=== PATIENT | female | born 1970 | race Caucasian/White ===

== ENCOUNTER 2023-06-05 10:47 | Emergency (ER) | payer OTHER, SELFPAY ==
[2023-06-05 10:55] VITALS: BP 150/99; PULSE 83; RESP 20; TEMP 36.8; O2SAT 99; BMI 24.6
--- NOTE | 2023-06-05 10:55 | ED.GENADUL1 ---
HPI - General Adult General Chief complaint: Nausea/Vomiting/Diarrhea Stated complaint: VOMITING Time Seen by Provider: 06/05/23 10:55 History of Present Illness HPI narrative: Patient presents to emergency department complaining of nausea, vomiting and diarrhea for 3 days. He states she started to feel weak and dehydrated and wanted to get checked out. She complains of abdominal cramping. She denies any fever. She denies any sick contacts. She states she has a sore throat from vomiting. She denies any hematemesis, melena, hematochezia.She was recently started on clindamycin for dental caries. Related Data Previous Rx's Medication Instructions Recorded famotidine 40 mg tablet (Pepcid) 40 mg PO BID #20 tabs 06/05/23 ondansetron HCl 4 mg tablet 4 mg PO Q6H PRN nausea and 06/05/23 vomiting #14 tabs promethazine 25 mg tablet 25 mg PO Q6H PRN nausea and 06/05/23 vomiting #10 tabs Allergies Allergy/AdvReac Type Severity Reaction Status Date / Time No Known Drug Allergies Allergy Verified 06/05/23 10:59 Review of Systems ROS Status of ROS 10 or more systems reviewed and unremarkable except as noted in history and below Exam Narrative Exam Narrative: Nurses notes and vital signs reviewed and patient is not hypoxic. General: Nontoxic, Well-appearing and in no apparent distress. Skin: Warm, dry, no pallor noted. No Rash Head: Normocephalic, atraumatic. Neck: Supple, non-tender. Eye: Pupils are equal, round and EOMI. No scleral icterus. Ears, Nose, Mouth, and Throat: TM clear, no posterior oropharynx erythema or nasal mucosal hypertrophy, uvula is mid-line Oral mucosa is dry Cardiovascular: Regular Rate and Rhythm without murmur, gallop or rub. Respiratory: No accessory muscle use or respiratory distress. Lungs are clear to auscultation, no wheezing, rales or rhonchi Chest Wall: no tenderness Back: No midline thoracic or lumbar vertebral tenderness. No CVA tenderness Musculoskeletal: normal ROM, no calf or popliteal tenderness, no lower extremity edema/swelling GI: Abdomen is soft, non-distended. Normal bowel sounds. No tenderness to palpation. No rebound, guarding, or rigidity noted. Neurological: A&O x4. No cranial nerve dysfunction observed. No truncal ataxia. Moves all extremities. Sensation intact. Psychiatric: Cooperative and interactive. Normal mood and affect. Constitutional Vital Signs, click to edit/add: Last Vital Signs Temp 98 F 06/05/23 16:40 Pulse 80 06/05/23 16:40 Resp 16 06/05/23 16:40 BP 170/95 H 06/05/23 16:40 Pulse Ox 100 06/05/23 16:40 O2 Del Method Room Air 06/05/23 16:40 Course Vital Signs Vital signs: Vital Signs Temperature 98.3 F 06/05/23 10:55 Pulse Rate 83 06/05/23 10:55 Respiratory Rate 20 06/05/23 10:55 Blood Pressure 150/99 H 06/05/23 10:55 Pulse Oximetry 99 06/05/23 10:55 Oxygen Delivery Method Room Air 06/05/23 10:55 Temperature 98 F 06/05/23 16:40 Pulse Rate 80 06/05/23 16:40 Respiratory Rate 16 06/05/23 16:40 Blood Pressure 170/95 H 06/05/23 16:40 Pulse Oximetry 100 06/05/23 16:40 Oxygen Delivery Method Room Air 06/05/23 16:40 Medical Decision Making MDM Narrative Medical decision making narrative: pt was given IV fluids, Zofran. Lab studies were done. Patient's CT scan showed enteritis. Patient's gastrointestinal panel demonstrates neurovirus. Patient felt better is tolerating by mouth. She was given a prescription for antibiotics. She will continue hydration at home. She is advised to return to the emergency department if abdominal pain worsens, she develops hematemesis, or hematochezia she has any other times concerns. At this time the patient is without objective evidence of an acute process requiring hospitalization or inpatient management. The patient has remained hemodynamically stable. No additional indication for emergent studies at this time. I answered all questions. Discussed discharge instructions including standard anticipatory guidance and what should prompt a return to the emergency department, including if they get worse are not getting better or develops any new or concerning symptoms. I've given them specific time frame in which to follow-up, and who to follow-up with. The patient demonstrates understanding. Patient is nontoxic and stable for discharge with outpatient follow-up. This note was created with the assistance of a speech recognition program. Although the intention is to generate documents that actually reflects the content of the visit, no guarantees can be provided that every mistake has been identified and corrected by editing. Lab Data Lab results reviewed: Yes I reviewed the patient's lab results Labs: Lab Results 06/05/23 06/05/23 Range/Units 11:10 13:10 WBC 4.8 (4.0-11.0) 10^3/uL RBC 4.53 (4.20-5.40) 10^6/uL Hgb 14.8 (12.0-16.0) g/dL Hct 41.1 (36.0-48.0) % MCV 90.7 (81.0-99.0) fL MCH 32.7 (26.7-34.0) pg MCHC 36.0 H (29.9-35.2) g/dL RDW 12.5 (11.0-15.0) % Plt Count 331 (150-450) 10^3/uL MPV 9.5 (9.5-13.5) fL Neut % (Auto) 52.7 (43.0-75.0) % Lymph % (Auto) 34.1 (20.5-60.0) % [place] % (Auto) 9.1 (1.7-12.0) % Eos % (Auto) 3.1 (0.9-7.0) % Baso % (Auto) 0.8 (0.2-2.0) % Neut # (Auto) 2.6 (1.4-6.5) 10^3/uL Lymph # (Auto) 1.7 (1.2-3.8) 10^3/uL [place] # (Auto) 0.4 (0.3-0.8) 10^3/uL Eos # (Auto) 0.2 (0.0-0.7) 10^3/uL Baso # (Auto) 0.0 (0.0-0.1) 10^3/uL Abs Immat Gran (auto) 0.01 (0.00-0.03) 10^3/uL Imm/Tot Granulo (auto) 0.2 (0.0-0.5) % Sodium 136 (136-145) mmol/L Potassium 3.2 L (3.5-5.1) mmol/L Chloride 98 (98-107) mmol/L Carbon Dioxide 24.1 (21.0-32.0) mmol/L Anion Gap 17.1 BUN 9.0 (7.0-18.0) mg/dL Creatinine 0.66 (0.55-1.02) mg/dL Est GFR ( Amer) >60 (>=60) Est GFR (Non-Af Amer) >60 (>=60) BUN/Creatinine Ratio 13.6 Glucose 131 H (74-106) mg/dL Calcium 8.3 L (8.5-10.1) mg/dL Total Bilirubin 1.1 H (0.2-1.0) mg/dL AST 162 H (15-37) U/L ALT 95 H (14-59) U/L Alkaline Phosphatase 106 (46-116) U/L Total Protein 7.0 (6.4-8.2) g/dL Albumin 3.5 (3.4-5.0) g/dL Globulin 3.5 g/dL Albumin/Globulin Ratio 1.0 Lipase 173.0 (73.0-393.0) U/L Urine Color Lt. yellow (YELLOW) Urine Clarity Clear (CLEAR) Urine pH 7.0 (5.0-9.0) Ur Specific [place] 1.010 (1.005-1.025) Urine Protein Negative (NEG/TRACE) mg/dL Urine Glucose (UA) Negative (NEGATIVE) mg/dL Urine Ketones Negative (NEGATIVE) mg/dL Urine Occult Blood Negative (NEGATIVE) Urine Nitrite Negative (NEGATIVE) Urine Bilirubin Negative (NEGATIVE) Urine Urobilinogen 0.2 (0.2-1.0) EU/dL Ur Leukocyte Esterase Negative (NEGATIVE) Stl C. cayetanensis PCR Not detected (NOT DETECTE) Stool Rotavirus (PCR) Not detected (NOT DETECTE) Stool Adenovirus (PCR) Not detected (NOT DETECTE) Stool Astrovirus (PCR) Not detected (NOT DETECTE) Stool Campylobacter PCR Not detected (NOT DETECTE) Stool Cryptosporidium PCR Not detected (NOT DETECTE) St Sh/Enteroin Ecoli PCR Not detected (NOT DETECTE) Stl Enterotoxigenic E PCR Not detected (NOT DETECTE) Stool EPEC (PCR) Not detected (NOT DETECTE) Stl E. histolytica PCR Not detected (NOT DETECTE) Stool Giardia Lamblia PCR Not detected (NOT DETECTE) Stl P. shigelloides PCR Not detected (NOT DETECTE) Stool Salmonella PCR Not detected (NOT DETECTE) Stool Sapovirus (PCR) Not detected (NOT DETECTE) Stl Shiga-like Tx 1 PCR Not detected (NOT DETECTE) St Y.enterocolitica PCR Not detected (NOT DETECTE) Stl Vibrio cholerae PCR Not detected (NOT DETECTE) Stl Enteroaggr Ecoli PCR Not detected (NOT DETECTE) Stl Norovirus GI/GII PCR Detected A (NOT DETECTE) C. difficile Toxin A&B Not detected (NOT DETECTE) Vibrio Culture Not detected (NOT DETECTE) Discharge Plan Discharge Chief Complaint: Nausea/Vomiting/Diarrhea Clinical Impression: Inflammation of intestine due to Norovirus, Gastroenteritis, Dehydration Patient Disposition: Home, Self-Care Time of Disposition Decision: 16:32 Condition: Good Mode of Transportation: Private Vehicle Prescriptions / Home Meds: New ondansetron HCl 4 mg tablet 4 mg PO Q6H PRN (Reason: nausea and vomiting) Qty: 14 0RF promethazine 25 mg tablet 25 mg PO Q6H PRN (Reason: nausea and vomiting) Qty: 10 0RF famotidine [Pepcid] 40 mg tablet 40 mg PO BID Qty: 20 0RF Instructions: Dehydration (ED), Acute Nausea and Vomiting (ED) Stand Alone Forms: Portal Instructions Referrals: Isrrael Jo MD [Primary Care Provider] - 1 week Discharge Date/Time: 06/05/23 16:57
[2023-06-05 10:58] VITALS: BP 150/99
[2023-06-05 11:26] LABS: Basophils Percent Auto 0.8 % (0.2-2.0); Eosinophils Absolute Auto 0.2 10^3/uL (0.0-0.7); Eosinophils Percent Auto 3.1 % (0.9-7.0); Hematocrit 41.1 % (36.0-48.0); Hemoglobin 14.8 g/dL (12.0-16.0); Immature Granulocytes Abs Auto 0.01 10^3/uL (0.00-0.03); Immature Granulocytes Pct Auto 0.2 % (0.0-0.5); Lymphocytes Absolute Auto 1.7 10^3/uL (1.2-3.8); Lymphocytes Percent Auto 34.1 % (20.5-60.0); Mean Corpuscular Hemoglobin 32.7 pg (26.7-34.0); Mean Corpuscular Volume 90.7 fL (81.0-99.0); Mean Platelet Volume 9.5 fL (9.5-13.5); Monocytes Absolute Auto 0.4 10^3/uL (0.3-0.8); Monocytes Percent Auto 9.1 % (1.7-12.0); Neutrophils Absolute Auto 2.6 10^3/uL (1.4-6.5); Neutrophils Percent Auto 52.7 % (43.0-75.0); Platelet Count 331 10^3/uL (150-450); Red Blood Count 4.53 10^6/uL (4.20-5.40); Red Cell Distribution Width 12.5 % (11.0-15.0); White Blood Count 4.8 10^3/uL (4.0-11.0)
[2023-06-05] MEDS: ONDANSETRON PF 4 MG/2 ML VIAL IV (11:27)
[2023-06-05] MEDS: 0.9 % SODIUM CHLORIDE 1,000 ML 999 ML IV (11:27)
[2023-06-05 11:41] LABS: Alanine Aminotransferase 95 U/L (14-59); Albumin Level 3.5 g/dL (3.4-5.0); Alkaline Phosphatase 106 U/L (46-116); Anion Gap 17.1; Aspartate Amino Transferase 162 U/L (15-37); BUN Creatinine Ratio 13.6; Bilirubin Total 1.1 mg/dL (0.2-1.0); Calcium 8.3 mg/dL (8.5-10.1); Carbon Dioxide 24.1 mmol/L (21.0-32.0); Chloride 98 mmol/L (98-107); Estimated GFR (African America >60 (>=60); Estimated GFR (Non-African Ame >60 (>=60); Globulin 3.5 g/dL; Glucose 131 mg/dL (74-106); Potassium 3.2 mmol/L (3.5-5.1); Sodium 136 mmol/L (136-145)
--- NOTE | 2023-06-05 12:00 | CT_ITS ---
The [address] [address] Patient Name: MEGHA MCDANIEL MRN: [id number] date: 1970 Sex: F Assigned Patient Location: ER Current Patient Location: ER Accession/Order Number: [id number] Exam Date: 06/05/2023 12:28 Report Date: 06/05/2023 13:47 At the request of: MJ ZAPATA Procedure: CT abdomen pelvis w con EXAM: CT abdomen pelvis w con HISTORY: n/v/d, elevated lfts COMPARISON: 03/05/2021. TECHNIQUE: Enhanced helical acquisition obtained through the abdomen and the pelvis. FINDINGS: The visualized lung bases and pleural spaces are clear. Mild hepatic steatosis. Hepatomegaly with the liver measuring approximately 21 cm craniocaudal length. Mild extrahepatic biliary ductal dilatation with the common hepatic duct measuring 1.2 cm in diameter. The spleen, pancreas, adrenal glands and the kidneys are unremarkable. Retroaortic left renal vein, anatomic variant. Moderate diffuse atherosclerotic disease. No enlarged lymph nodes within the abdomen or the pelvis. Normal appendix. No ascites or focal intraperitoneal fluid collections. Diffuse prominence of submucosal fat within the colonic wall diffusely which is a nonspecific finding and may occur in the setting of underlying chronic inflammatory bowel disease or also occur in the setting of obesity. The colon is diffusely decompressed. Possibility of mild diffuse colonic wall thickening secondary to a mild pancolitis is not completely excluded. Diverticulosis without radiographic evidence of diverticulitis. No ascites or focal intraperitoneal fluid collections. CT/CT abdomen pelvis w con IMPRESSION: 1. Prominent submucosal fat throughout the entirety of the colonic wall which may occur in the setting of chronic inflammatory bowel disease or obesity. The colon is diffusely decompressed and there may be diffuse colonic wall thickening which may indicate the presence of an underlying mild pancolitis. Recommend correlation for C. difficile. 2. Normal appendix. Diverticulosis without radiographic evidence of diverticulitis. 3. Hepatic steatosis. Hepatomegaly. Mild extrahepatic biliary ductal dilatation with the common hepatic duct measuring 1.2 cm in diameter. Electronically authenticated by: CLEMENT TAPIA Date: 06/05/2023 13:47
[2023-06-05 13:14] LABS: Adenovirus F 40/41 NOT DETECTED (NOT DETECTE); Astrovirus NOT DETECTED (NOT DETECTE); Campylobacter NOT DETECTED (NOT DETECTE); Cryptosporidium NOT DETECTED (NOT DETECTE); Cyclospora cayetanensis NOT DETECTED (NOT DETECTE); Entamoeba histolytica NOT DETECTED (NOT DETECTE); Enteroaggregative E.coli NOT DETECTED (NOT DETECTE); Enteropathogenic E.coli NOT DETECTED (NOT DETECTE); Enterotoxigenic E. coli NOT DETECTED (NOT DETECTE); Giardia lamblia NOT DETECTED (NOT DETECTE); Plesiomonas shigelloides NOT DETECTED (NOT DETECTE); Rotavirus A NOT DETECTED (NOT DETECTE); Salmonella NOT DETECTED (NOT DETECTE); Sapovirus NOT DETECTED (NOT DETECTE); Shiga-like toxin-producing E.C NOT DETECTED (NOT DETECTE); Shigella/Enteroinvasive E.coli NOT DETECTED (NOT DETECTE); Vibrio NOT DETECTED (NOT DETECTE); Vibrio cholerae NOT DETECTED (NOT DETECTE); Yersinia enterocolitica NOT DETECTED (NOT DETECTE)
[2023-06-05 13:16] LABS: Bilirubin Urine NEGATIVE (NEGATIVE); Blood Urine NEGATIVE (NEGATIVE); Clarity Urine CLEAR (CLEAR); Color Urine LT. YELLOW (YELLOW); Glucose Urine UA NEGATIVE (NEGATIVE); Ketones Urine NEGATIVE (NEGATIVE); Leukocyte Esterase Urine NEGATIVE (NEGATIVE); Nitrite Urine NEGATIVE (NEGATIVE); Protein Urine NEGATIVE (NEG/TRACE); Urobilinogen Urine 0.2 EU/dL (0.2-1.0)
[2023-06-05 13:17] LABS: Urine Microscopic Indicated NO
[2023-06-05] MEDS: PANTOPRAZOLE SODIUM 40 MG VIAL IV (13:33)
[2023-06-05 13:38] VITALS: O2SAT 97
[2023-06-05] MEDS: PROMETHAZINE HCL 25 MG/ML VIAL 12.5 MG IV (13:38)
[2023-06-05 13:40] VITALS: O2SAT 98
[2023-06-05] MEDS: lidocaine HCL 15 ML, MAG HYDROX/ALUMINUM HYD/SIMETH 30 ML, HYOSCYAMINE SULFATE 0.25 MG PO (13:40)
[2023-06-05 13:44] VITALS: BP 160/95; TEMP 36.6
[2023-06-05 14:55] LABS: Norovirus GI/GII DETECTED (NOT DETECTE)
[2023-06-05 16:40] VITALS: BP 170/95; PULSE 80; RESP 16; TEMP 36.6; O2SAT 100
== END 2023-06-05 16:57 | disposition home or self-care (01) ==
PROVIDERS: Emergency Provider Emergency Medicine; PCP Family Medicine
DX: A08.11 Acute gastroenteropathy due to Norwalk agent (principal); E86.0 Dehydration; K52.9 Noninfective gastroenteritis and colitis, unspecified
CPT/HCPCS: 36415; 74177; 80053; 81003; 83690; 85025; 87507; 96361; 96374; 96375; 99285; Q9967

== ENCOUNTER 2023-11-09 09:15 | Outpatient (OUT) | payer OTHER, SELFPAY ==
[2023-11-09 09:59] LABS: Basophils Percent Auto 0.3 % (0.2-2.0); Eosinophils Absolute Auto 0.1 10^3/uL (0.0-0.7); Eosinophils Percent Auto 1.7 % (0.9-7.0); Hematocrit 32.7 % (36.0-48.0); Hemoglobin 10.6 g/dL (12.0-16.0); Immature Granulocytes Abs Auto 0.02 10^3/uL (0.00-0.03); Immature Granulocytes Pct Auto 0.3 % (0.0-0.5); Lymphocytes Absolute Auto 1.4 10^3/uL (1.2-3.8); Lymphocytes Percent Auto 20.6 % (20.5-60.0); Mean Corpuscular HGB Conc 32.4 g/dL (29.9-35.2); Mean Corpuscular Hemoglobin 32.6 pg (26.7-34.0); Mean Corpuscular Volume 100.6 fL (81.0-99.0); Monocytes Absolute Auto 0.8 10^3/uL (0.3-0.8); Monocytes Percent Auto 11.7 % (1.7-12.0); Neutrophils Absolute Auto 4.3 10^3/uL (1.4-6.5); Neutrophils Percent Auto 65.4 % (43.0-75.0); Platelet Count 298 10^3/uL (150-450); Red Blood Count 3.25 10^6/uL (4.20-5.40); Red Cell Distribution Width 16.8 % (11.0-15.0); White Blood Count 6.6 10^3/uL (4.0-11.0)
[2023-11-09 10:58] LABS: Estimated Average Glucose 114 mg/dL; Glycohemoglobin A1C 5.6 % (4.5-6.2)
[2023-11-09 11:47] LABS: Alanine Aminotransferase 50 U/L (14-59); Albumin Globulin Ratio 0.8; Alkaline Phosphatase 59 U/L (46-116); Anion Gap 14.3; Aspartate Amino Transferase 26 U/L (15-37); BUN Creatinine Ratio 21.9; Bilirubin Total 0.3 mg/dL (0.2-1.0); Calcium 9.1 mg/dL (8.5-10.1); Carbon Dioxide 25.2 mmol/L (21.0-32.0); Chloride 103 mmol/L (98-107); Chol HDL Ratio 2.8; Cholesterol 203 mg/dL (<=200); Estimated GFR (African America >60 (>=60); Estimated GFR (Non-African Ame >60 (>=60); Free T3 1.08 pg/mL (2.18-3.98); Globulin 3.7 g/dL; Glucose 109 mg/dL (74-106); HDL Cholesterol 73 mg/dL (40-60); Potassium 3.5 mmol/L (3.5-5.1); Sodium 139 mmol/L (136-145); Thyroid Stimulating Hormone 2.988 uIU/mL (0.358-3.740); Total Protein 6.7 g/dL (6.4-8.2); Triglycerides 136 mg/dL (<=150); VLDL CHOLESTEROL 27.2 mg/dL
[2023-11-09 21:42] LABS: Occult Blood Negative
[2023-11-10 11:08] LABS: Insulin 10.6 uIU/mL (2.6-24.9)
== END 2023-11-09 09:16 | disposition home or self-care (01) ==
PROVIDERS: PCP Family Medicine; Visit Provider Family Medicine
DX: M50.90 Cervical disc disorder, unspecified, unspecified cervical region (principal); F10.10 Alcohol abuse, uncomplicated; R19.7 Diarrhea, unspecified; R73.09 Other abnormal glucose; Z12.12 Encounter for screening for malignant neoplasm of rectum; D64.9 Anemia, unspecified
CPT/HCPCS: 36415; 80053; 80061; 82306; 83036; 83525; 83540; 84436; 84443; 84481; 85025; G0328

== ENCOUNTER 2023-11-11 08:07 | Outpatient (RCR) | payer OTHER, SELFPAY | END 2024-01-13 13:32 | disposition home or self-care (01) | LOC: PT 08:07 | PROVIDERS: PCP Family Medicine; Visit Provider Family Medicine | DX: M50.90 Cervical disc disorder, unspecified, unspecified cervical region (principal) | CPT/HCPCS: 97010; 97012; 97110; 97113; 97140; 97162 ==

== ENCOUNTER 2023-11-17 09:32 | Outpatient (OUT) | payer OTHER, SELFPAY ==
--- NOTE | 2023-11-17 09:36 | CT_ITS ---
The [address] [address] Patient Name: MEGHA MCDANIEL MRN: [id number] date: 1970 Sex: F Assigned Patient Location: CT Current Patient Location: CT Accession/Order Number: [id number] Exam Date: 11/17/2023 09:37 Report Date: 11/17/2023 11:16 At the request of: KELLY SHAH Procedure: CT cervical spine wo con EXAM: CT scan cervical spine without contrast. TECHNIQUE: CT scan performed through the cervical spine and reconstructed in the axial, coronal and sagittal plane. Dose reduction techniques were achieved by using automated exposure control and/or adjustment of mA and/or kV according to patient size and/or use of iterative reconstruction technique. HISTORY: Cervical disc disease. FINDINGS: Disc space narrowing with anterior disc bulge and spur at C5-C6 and C6-C7. Mild anterior spur at C4-C5. The craniocervical junction and cervicothoracic junction are normal in appearance. Mild facet arthropathy to left of midline C2-C3, mild facet arthropathy to the right of midline C3-C4 and C4-C5. The craniocervical junction and the cervicothoracic junction are normal. No evidence of central spinal canal stenosis. Uncinate process hypertrophy with foraminal stenosis bilaterally C5-C6 and C6-C7. The paraspinal soft tissues are normal. CT/CT cervical spine wo con IMPRESSION: 1. No evidence of central spinal canal stenosis. 2. Foraminal stenosis due to uncinate process hypertrophy C5-C6 and C6-C7. Electronically authenticated by: Yenny ARGUELLES Date: 11/17/2023 11:16
--- OUTSIDE RECORDS SUMMARY | 2023-11-17 09:37 | XMS_ITS | CCD ---
Author Name Unknown Address [address] [facility] [address] [place] [address] Organization [facility] Care Team Providers Care Relief Charge Nurse Name Role Phone PHYSICIAN, DEFAULT Unavailable Unavailable PHYSICIAN, DEFAULT Unavailable Unavailable KELLY JO Unavailable Unavailable MD Kelly Jo Primary Care Provider [phone] DO Michael Avila Emergency Provider DR KELLY JO Primary Care Unavailable PAY, DR COELHO Attending Unavailable PAY, DR COELHO Admitting Unavailable PAY, DR COELHO Consulting Unavailable LEENA KING Consulting Unavailable ALYSSA, DR MENDOZA Primary Care Unavailable KATYA LARRY Attending Unavailable KATYA LARRY Admitting Unavailable ALYSSA, DR MENDOZA Primary Care Unavailable ALYSSA, DR MENDOZA Consulting Unavailable ALYSSA, DR MENDOZA Attending Unavailable ALYSSA, DR MENDOZA Admitting Unavailable ZIEBER, DR INGRIS Burk Consulting Unavailable ALYSSA, DR MENDZOA Primary Care Unavailable ALYSSA, DR MENDOZA Consulting Unavailable ALYSSA, DR MENDOZA Attending Unavailable ALYSSA, DR MENDOZA Admitting Unavailable ALYSSA, DR MENDOZA Primary Care Unavailable ALYSSA, DR MENDOZA Attending Unavailable ALYSSA, DR MENDOZA Admitting Unavailable ALYSSA, DR MENDOZA Primary Care Unavailable ALYSSA, DR MENDOZA Attending Unavailable ALYSSA, DR MENDOZA Admitting Unavailable ALYSSA, DR MENDOZA Primary Care Unavailable ALYSSA, DR MENDOZA Attending Unavailable ALYSSA, DR MENDOZA Admitting Unavailable Allergies Allergy Classification Reported Allergen(s) Allergy Type Date of Onset Reaction(s) Facility (1 source) 67004,00 Drug allergy (disorder) 09-18-[address] [facility] Repository Medications Current Medications Medication Drug Class(es) Dates Sig (Normalized) Sig (Original) cetirizine hydrochloride 10 mg oral tablet (1 source) Histamine-1 Receptor Antagonist Start: 1 take 20 mg by mouth once daily Cetirizine Active 20 MG PO Daily June 25, 2021 7:44pm hydrOXYzine hydrochloride 25 mg oral tablet (1 source) Antihistamine Start: 2 take 25 mg by mouth every six hours Hydroxyzine Hcl Active 25 MG PO Q6H April 30, 2022 11:38am ibuprofen 800 mg oral tablet (1 source) Nonsteroidal Anti-inflammatory Drug Start: 1 take 800 mg by mouth every six hours Ibuprofen Active 800 MG PO Q6H June 25, 2021 7:44pm levothyroxine sodium 0.125 mg oral tablet (1 source) l-Thyroxine Start: 1 take 125 ug by mouth once daily Levothyroxine Active 125 MCG PO Daily June 25, 2021 7:44pm methylPREDNISolone 4 mg oral tablet (2 sources) Corticosteroid Start: 1 End: 2 take 1 tablet by mouth once Methylprednisolone (Medrol (Herb)) 4 mg tablets,dose pack Active 0 PO .COMPLEX April 30, 2022 11:24am orally per package directions ondansetron 4 mg disintegrating oral tablet (1 source) Serotonin-3 Receptor Antagonist Start: 2 take 4 mg by mouth every eight hours Ondansetron Active 4 MG PO Q8H April 30, 2022 11:25am Completed/Discontinued Medications Medication Drug Class(es) Dates Sig (Normalized) Sig (Original) acetaminophen 325 mg / oxyCODONE hydrochloride 5 mg oral tablet (1 source) Opioid Agonist Start: 06-25-2021 End: 04-30-2022 take 1 tablet by mouth every six hours Oxycodone-Acetamino phen (Percocet) 5-325 mg tablet Discontinued 1 TAB PO Q6H 10 3 June 25, 2021 8:34pm April 30, 2022 7:55am aspirin 81 mg oral tablet (1 source) Platelet Aggregation Inhibitor, Nonsteroidal Anti-inflammatory Drug Start: 06-25-2021 End: 04-30-2022 take 81 mg by mouth once daily Aspirin Discontinued 81 MG PO Daily June 25, 2021 7:44pm April 30, 2022 7:54am diclofenac sodium 75 mg delayed release oral tablet (1 source) Nonsteroidal Anti-inflammatory Drug Start: 06-25-2021 End: 04-30-2022 take 75 mg by mouth twice daily Diclofenac Sodium Discontinued 75 MG PO Twice daily June 25, 2021 7:44pm April 30, 2022 7:56am methocarbamol 750 mg oral tablet (1 source) Muscle Relaxant Start: 06-25-2021 End: 04-30-2022 take 750 mg by mouth three times daily Methocarbamol Discontinued 750 MG PO Three times daily June 25, 2021 8:34pm April 30, 2022 7:55am omeprazole 40 mg delayed release oral capsule (1 source) Proton Pump Inhibitor Start: 06-25-2021 End: 04-30-2022 take 40 mg by mouth twice daily Omeprazole Discontinued 40 MG PO Twice daily June 25, 2021 7:44pm April 30, 2022 7:55am sucralfate 1000 mg oral tablet (1 source) Aluminum Complex Start: 06-25-2021 End: 04-30-2022 take 1 g by mouth every six hours Sucralfate Discontinued 1 GM PO Q6H June 25, 2021 7:44pm April 30, 2022 7:55am vortioxetine 10 mg oral tablet (1 source) Start: 06-25-2021 End: 04-30-2022 take 1 tablet by mouth once daily Vortioxetine (Trintellix) 10 mg tablet Discontinued 10 MG PO Daily June 25, 2021 7:44pm April 30, 2022 7:55am Problems Active Problems Problem Classification Problem Date Documented Date Episodic/Chronic Alcohol-related disorders (1 source) Alcohol dependence, uncomplicated; Translations: [ALCOHOL DEPENDENCE UNCOMPLICATED] Onset: 02-24-2022 Chronic Anxiety disorders (1 source) Anxiety disorder, unspecified; Translations: [ANXIETY DISORDER UNSPECIFIED] Onset: 02-24-2022 Chronic Disorders usually diagnosed in infancy, childhood, or adolescence (1 source) Other specified behavioral and emotional disorders with onset usually occurring in childhood and adolescence; Translations: [OTH BEHAVR EMOTIONAL D/O CHILD ADOL] Onset: 02-24-2022 Chronic Noninfectious gastroenteritis (1 source) Colitis; Translations: [Noninfective gastroenteritis and colitis, unspecified] 04-30-2022 Episodic Other nervous system disorders (1 source) Other chronic pain; Translations: [OTHER CHRONIC PAIN] Onset: 02-24-2022 Chronic Spondylosis; intervertebral disc disorders; other back problems (1 source) Acute back pain with sciatica; Translations: [Lumbago with sciatica, right side] 06-25-2021 Episodic Substance-related disorders (1 source) Nicotine dependence, cigarettes, uncomplicated; Translations: [NICOTINE DEPEND CIGARETTES UNCOMP] Onset: 02-24-2022 Chronic Thyroid disorders (1 source) Hypothyroidism, unspecified; Translations: [HYPOTHYROIDISM UNSPECIFIED] Onset: 02-24-2022 Chronic Unclassified (1 source) CONTACT W/AND (SUSP) EXPOS COVID-19; Translations: [CONTACT W/AND (SUSP) EXPOS COVID-19] Onset: 02-24-2022 Past or Other Problems Problem Classification Problem Date Documented Da te Episodic/Chronic Abdominal pain (3 sources) Abdominal pain; Translations: [Unspecified abdominal pain] Onset: 11-19-2021 04-30-2022 Episodic Cardiac dysrhythmias (4 sources) Palpitations; Translations: [PALPITATIONS] Onset: 03-24-2022 Episodic Diseases of mouth; excluding dental (1 source) Diseases of lips; Translations: [DISEASES OF LIPS] Onset: 03-27-2022 Episodic Fluid and electrolyte disorders (1 source) Hypokalemia; Translations: [HYPOKALEMIA] Onset: 02-24-2022 Episodic Malaise and fatigue (1 source) Other fatigue; Translations: [OTHER FATIGUE] Onset: 11-19-2021 Episodic Nausea and vomiting (4 sources) Vomiting, unspecified; Translations: [Nausea with vomiting, unspecified] Onset: 02-22-2022 Episodic Nonspecific chest pain (1 source) Other chest pain; Translations: [OTHER CHEST PAIN] Onset: 03-27-2022 Episodic Other aftercare (1 source) Other termite treater (current) drug therapy; Translations: [OTH SNF CURRENT DRUG THERAPY] Onset: 02-24-2022 Episodic Other connective tissue disease (4 sources) Fibromyalgia; Translations: [FIBROMYALGIA] Onset: 11-12-2021 Episodic Other gastrointestinal disorders (1 source) Diarrhea, unspecified; Translations: [DIARRHEA UNSPECIFIED] Onset: 02-24-2022 Episodic Residual codes; unclassified (1 source) Other specified postprocedural states; Translations: [OTH SPECIFIED POSTPROCEDURAL STATES] Onset: 02-24-2022 Episodic Residual codes; unclassified (1 source) Insomnia, unspecified; Translations: [INSOMNIA UNSPECIFIED] Onset: 11-19-2021 Episodic Results Test Name Value Interpretation Reference Range Facility Provider Letteron 08-05-2023 Provider Letter August 05, [address] [address] [place] [address] : 1970 Dear Megha, We have been trying to reach you with no success. It is important that you return our call upon receiving this letter. Also, at the time of your call, please provide us with your current information. Thank you for your prompt attention to this matter. Sincerely, Dr. Rohit Delacruz MD General Surgery [facility] ED Note-Physicianon 07-16-20 ED Note-Physician [id number] .00CD:127 [facility] Physician Referralon 023 Physician Referral [id number]. 00CD:127 [facility] RAD - CT Reporton 07-16-2023 RAD - CT Report [id number]#1. 00CD:127 [facility] Physician Referralon 023 Physician Referral [id number]. 00CD:127 [facility] Albumin [Mass/volume] in Ser um or PlasmaOrdered By: Michael Avila on 04-30-2022 Albumin [Mass/Vol] 3.4 g/dL 3.2-5.5 [facility] Automated erythrocytes count in urine sediment (number/area)Ordered By: Michael Avila on 04-30-2022 RBC Auto (Urine sed) [#/Area] 3-4 [HPF] [facility] Automated leukocytes count i n urine sediment (number/area)Ordered By: Michael Avila on 04-30-2022 WBC Auto (Urine sed) [#/Area] 3-4 [HPF] [facility] Basic Metabolic Panelon 06-2 Calcium [Mass/Vol] 9.0 mg/dL Normal 8.2-10.2 [facility] Comment on above: Performed By: #### C BC, BMP, LIPASE, TSH3, HEPATIC #### [facility] [address] Chloride [Moles/Vol] 99 mmol/L Normal 95-114 [facility] Comment on above: Performed By: #### C BC, BMP, LIPASE, TSH3, HEPATIC #### [facility] [address] CO2 [Moles/Vol] 22.8 mmol/L Normal 22.0-30.0 [facility] Comment on above: Performed By: #### C BC, BMP, LIPASE, TSH3, HEPATIC #### [facility] [address] Creatinine [Mass/Vol] 0.85 mg/dL Normal 0.44-1.03 [facility] Comment on above: Performed By: #### C BC, BMP, LIPASE, TSH3, HEPATIC #### [facility] [address] [place] [address] [place] Creatinine Clr Calc Pharmacy 68.37 [facility] Comment on above: Performed By: #### C BC, BMP, LIPASE, TSH3, HEPATIC #### [address] Estimated GFR ( Esther > 60 [facility] Comment on above: Result Comment: GFR estimated reference range: According to KDOQI guidelines, <60 ml/min/1.73m2 is sufficient to diagnose a patient with chronic kidney disease. Performed By: #### C BC, BMP, LIPASE, TSH3, HEPATIC #### [facility] [address] Estimated GFR (Non- Am > 60 [facility] Comment on above: Performed By: #### C BC, BMP, LIPASE, TSH3, HEPATIC #### [facility] [address] [place] [address] [place] Glucose [Mass/Vol] 114 mg/dL High 70-100 [facility] Comment on above: Result Comment: [place]e Glucose Reference Range is dependent on time and content of last meal. Glucose of more than 200 mg/dL in a nonstressed, ambulatory subject supports the diagnosis of Diabetes Mellitus. ADA recommended reference range Performed By: #### C BC, BMP, LIPASE, TSH3, HEPATIC #### [facility] [address] Potassium [Moles/Vol] 3.7 mmol/L Normal 3.5-5.1 [facility] Comment on above: Performed By: #### C BC, BMP, LIPASE, TSH3, HEPATIC #### [facility] [address] Sodium [Moles/Vol] 136 mmol/L Normal 136-146 [facility] Comment on above: Performed By: #### C BC, BMP, LIPASE, TSH3, HEPATIC #### [facility] [address] Urea nitrogen [Mass/Vol] 7 mg/dL Low - [facility] Comment on above: Performed By: #### C BC, BMP, LIPASE, TSH3, HEPATIC #### [facility] [address] Basophils Auto (Bld) [#/Vol] Ordered By: Michael Avila on 04-30-2022 Basophils (Bld) [#/Vol] 0.0 10*3/uL 0.0-0.2 [facility] Basophils/100 WBC Auto (Bld) Ordered By: Michael Avila on 04-30-2022 Basophils/100 WBC (Bld) 0.5 % [facility] Bilirubin Test strip Ql (U)O rdered By: Michael Avila on 04-30-2022 Bilirubin Ql (U) Negative Negative [facility] Blood hemoglobin measurement (mass/volume)Ordered By: Michael Avila on 04-30-2022 Hemoglobin (Bld) [Mass/Vol] 15.4 g/dL 11.8-15.4 [facility] Blood leukocytes automated c ount (number/volume)Ordered By: Michael Avila on 04-30-2022 WBC (Bld) [#/Vol] 7.1 10*3/uL 4.5-11.[address] [facility] [address] abdomen pelvis w conon CT abdomen pelvis w con [facility] Main [place] [address] [place] [address] CT Scan Report Signed Patient: Megha Mcdaniel MR#: [id number] 3 : 1970 Acct:[id number] Age/Sex: 52 / F ADM Date: 04/30/22 Loc: ER Room: Type: [facility] ER Attending Dr: Copies to: Michael Avila DO Ordering Provider: Michael Avila DO Date of Service: 04/30/22 CT/CT abdomen pelvis w con: f CT abdomen and pelvis withcontrast TECHNIQUE: Axial imaging with 2-D reconstruction.90 cc of Isovue-300. The CT exam was performed using one or more the following dose reduction techniques: Automated exposure control, adjustment of the MA and/or Kv according to patient size, or use of the iterative reconstruction technique. COMPARISON:None History: Vomiting and diarrhea. History of alcohol abuse. Ongoing for years. Lung bases are unremarkable. No hepatic mass or intrahepatic biliary ductal dilatation identified. Fatty hepatomegaly noted. No gallbladder abnormality identified. No extrahepatic biliary ductal dilatation identified. There is no splenomegaly or splenic mass identified. No pancreatic mass or ductal dilatation identified. The adrenal glands are unremarkable. No nephrolithiasis or obstructive uropathy is identified. No abdominal aortic aneurysm identified. No significant retroperitoneal abnormalities identified. The small bowel loops are nondistended. The appendix is normal. Diffuse colonic wall thickening identified. Consider underdistention versus colitis. Urinary bladder is unremarkable. Reproductive structures are unremarkable. No free intraperitoneal air or fluid is identified. Multilevel lumbar degeneration present. No subcutaneous soft tissue abnormality identified. CT/CT abdomen pelvis w con IMPRESSION: Diffuse colon wall thickening. Consider underdistention versus colitis. Fatty hepatomegaly. Impression dictated by: Shailesh Jesus M.D.04/30/2022 9:41 AM Dictation Location: [place] [address] Transcribed By: [facility] 04/30/2241 Dictated By: Shailesh Jesus DO 04/30/2232 Signed By: 04/30/22940 Normal [facility] Color Auto (U)Ordered By: Dominick Avila on 04-30-2022 Color (U) Dark yellow Yellow [facility] Complete Blood Count Auto Di ffon 04-30-2022 Basophils (Bld) [#/Vol] 0.0 10*3/uL Normal 0.0-0.2 [facility] Comment on above: Result Comment: PERF ORMED BY: [place] [address] PATHOLOGIST [employer]PER[employer] YANETH CEDILLO M.D. Performed By: #### C BC, BMP, LIPASE, TSH3, HEPATIC #### [address] Basophils/100 WBC (Bld) 0.5 % Normal . [facility] Comment on above: Performed By: #### C BC, BMP, LIPASE, TSH3, HEPATIC #### [address] Eosinophils (Bld) [#/Vol] 0.1 10*3/uL Normal 0.0-0.45 [facility] Comment on above: Performed By: #### C BC, BMP, LIPASE, TSH3, HEPATIC #### [address] Eosinophils/100 WBC (Bld) 1.9 % Normal . [facility] Comment on above: Performed By: #### C BC, BMP, LIPASE, TSH3, HEPATIC #### [address] Erythrocyte distribution width (RBC) [Ratio] 15.3 % Normal 11.9-15.3 [facility] Comment on above: Performed By: #### C BC, BMP, LIPASE, TSH3, HEPATIC #### [address] Hematocrit (Bld) [Volume fraction] 44.8 % Normal 34.0-46.4 [facility] Comment on above: Performed By: #### C BC, BMP, LIPASE, TSH3, HEPATIC #### [address] [address] [place] Hemoglobin (Bld) [Mass/Vol] 15.4 g/dL Normal 11.8-15.4 [facility] Comment on above: Performed By: #### C BC, BMP, LIPASE, TSH3, HEPATIC #### [address] Lymphocytes (Bld) [#/Vol] 1.5 10*3/uL Normal 1.00-4.8 [facility] Comment on above: Performed By: #### C BC, BMP, LIPASE, TSH3, HEPATIC #### [address] Lymphocytes/100 WBC (Bld) 21.1 % Normal . [facility] Comment on above: Performed By: #### C BC, BMP, LIPASE, TSH3, HEPATIC #### [address] MCH (RBC) [Entitic mass] 34.6 pg High 24.7-34.3 [facility] Comment on above: Performed By: #### C BC, BMP, LIPASE, TSH3, HEPATIC #### [address] MCV (RBC) [Entitic vol] 100.6 fL High 80-100 [facility] Comment on above: Performed By: #### C BC, BMP, LIPASE, TSH3, HEPATIC #### [address] Mean Corpuscular HGB Conc 34.4 g/dL Normal 32.0-35.0 [facility] Comment on above: Performed By: #### C BC, BMP, LIPASE, TSH3, HEPATIC #### [address] Monocytes (Bld) [#/Vol] 0.7 10*3/uL Normal 0.0-0.8 [facility] Comment on above: Performed By: #### C BC, BMP, LIPASE, TSH3, HEPATIC #### [address] Monocytes/100 WBC (Bld) 9.5 % Normal . [facility] Comment on above: Performed By: #### C BC, BMP, LIPASE, TSH3, HEPATIC #### [address] Neutrophils (Bld) [#/Vol] 4.8 10*3/uL Normal 1.8-7.7 [facility] Comment on above: Performed By: #### C BC, BMP, LIPASE, TSH3, HEPATIC #### [address] Neutrophils/100 WBC (Bld) 67.0 % Normal . [facility] Comment on above: Performed By: #### C BC, BMP, LIPASE, TSH3, HEPATIC #### [address] Nucleated RBC/100 WBC (Bld) [Ratio] 0.0 % Normal 0-0.5 [facility] Comment on above: Performed By: #### C BC, BMP, LIPASE, TSH3, HEPATIC #### [address] Platelet mean volume (Bld) [Entitic vol] 8.0 fL Normal 6.3-10.7 [facility] Comment on above: Performed By: #### C BC, BMP, LIPASE, TSH3, HEPATIC #### [place] [address] [place] Platelets (Bld) [#/Vol] 336 10*3/uL Normal 150-450 [facility] Comment on above: Performed By: #### C BC, BMP, LIPASE, TSH3, HEPATIC #### [place] [address] [place] RBC (Bld) [#/Vol] 4.46 10*6/uL Normal 3.60-5.00 [facility] Comment on above: Performed By: #### C BC, BMP, LIPASE, TSH3, HEPATIC #### [place] [address] [place] WBC (Bld) [#/Vol] 7.1 10*3/uL Normal 4.5-11.0 [facility] Comment on above: Performed By: #### C BC, BMP, LIPASE, TSH3, HEPATIC #### [facility] [address] [place] [address] [place] Creatinine and Glomerular fi ltration rate.predicted panel (S/P/Bld)Ordered By: Michael Avila on 04-30-2022 Creatinine [Mass/Vol] 0.85 mg/dL 0.44-1.03 [facility] Dipstick and Microscopicon 0 04-30-2022 Appearance (U) Clear Normal Clear [facility] Comment on above: Order Comment: Name Collection Type:: Clean-Voided Midstream Performed By: #### A DDONUAPLUSMARGIECG #### [address] Bacteria,Urine None Seen Normal None Seen [facility] Comment on above: Order Comment: Name Collection Type:: Clean-Voided Midstream Performed By: #### A DDONUAPLUSMARGIECG #### [facility] [address] [place] [id number] [place] Bilirubin,Urine Negative Normal Negative [facility] Comment on above: Order Comment: Name Collection Type:: Clean-Voided Midstream Performed By: #### A DDONUAPLUS UHCG #### [facility] [address] [place] [id number] [place] Color (U) Dark Yellow Critically abnormal Yellow [facility] Comment on above: Order Comment: Name Collection Type:: Clean-Voided Midstream Performed By: #### A DDONUAPLUS, UHCG #### [facility] [address] [place] [id number] [place] Glucose Ql (U) Normal Normal Normal [facility] Comment on above: Order Comment: Name Collection Type:: Clean-Voided Midstream Performed By: #### A DDONUAPLUS UHCG #### [facility] [address] [place] [id number] [place] Hyaline Casts,Urine 9-19 High 0-8 [facility] Comment on above: Order Comment: Name Collection Type:: Clean-Voided Midstream Performed By: #### A DDONUAPLUS, UHCG #### [address] Ketones Ql (U) Negative Normal Negative [facility] Comment on above: Order Comment: Name Collection Type:: Clean-Voided Midstream Performed By: #### A DDONUAPLUS, UHCG #### [address] Leukocyte esterase Test strip Ql (U) Negative Normal Negative [facility] Comment on above: Order Comment: Name Collection Type:: Clean-Voided Midstream Performed By: #### A DDONUAPLUS, UHCG #### [address] Nitrite,Urine Negative Normal Negative [facility] Comment on above: Order Comment: Name Collection Type:: Clean-Voided Midstream Performed By: #### A DDONUAPLUS, UHCG #### [address] Occult Blood,Urine Negative Normal Negative [facility] Comment on above: Order Comment: Name Collection Type:: Clean-Voided Midstream Performed By: #### A DDONUAPLUS, UHCG #### [address] pH (U) 6.5 [pH] Normal 5.0-9.0 [facility] Comment on above: Order Comment: Name Collection Type:: Clean-Voided Midstream Performed By: #### A DDONUAPLUS, UHCG #### [address] Protein (U) [Mass/Vol] 30 mg/dL High Negative [facility] Comment on above: Order Comment: Name Collection Type:: Clean-Voided Midstream Performed By: #### A DDONUAPLUS, UHCG #### [address] RBC,Urine 3-4 Normal 0-4 [facility] Comment on above: Order Comment: Name Collection Type:: Clean-Voided Midstream Performed By: #### A DDONUAPLUS, UHCG #### [address] Renal Epithelial Cells,Urine None Seen Normal 0-1 [facility] Comment on above: Order Comment: Name Collection Type:: Clean-Voided Midstream Performed By: #### A DDONUAPLUS, UHCG #### [address] Specificy [place],Urine 1.021 Normal 1.001-1.030 [facility] Comment on above: Order Comment: Name Collection Type:: Clean-Voided Midstream Performed By: #### A DDONUAPLUS, UHCG #### [address] Squamous Epithelial Cell,Urine 3-4 High 0-2 [facility] Comment on above: Order Comment: Name Collection Type:: Clean-Voided Midstream Performed By: #### A DDONUAPLUS, UHCG #### [address] Urobilinogen,Urine Normal Normal Normal [facility] Comment on above: Order Comment: Name Collection Type:: Clean-Voided Midstream Performed By: #### A DDONUAPLUS, UHCG #### [address] WBC,Urine 3-4 Normal 0-4 [facility] Comment on above: Order Comment: Name Collection Type:: Clean-Voided Midstream Performed By: #### A DDONUAPLUS, UHCG #### [address] Direct bilirubin measurement Ordered By: Michael Avila on 04-30-2022 Bilirubin.direct [Mass/Vol] 0.4 mg/dL 0.0-0.4 [facility] Eosinophils Auto (Bld) [#/Vo l]Ordered By: Michael Avila on 04-30-2022 Eosinophils (Bld) [#/Vol] 0.1 10*3/uL 0.0-0.45 [facility] Eosinophils/100 WBC Auto (Bl d)Ordered By: Michael Avila on 04-30-2022 Eosinophils/100 WBC (Bld) 1.9 % [facility] Erythrocyte distribution wid th Auto (RBC) [Ratio]Ordered By: Michael Avila on 04-30-2022 Erythrocyte distribution width (RBC) [Ratio] 15.3 % 11.9-15.3 [facility] Estimated glomerular filtrat ion rate (GFR) non- AmericanOrdered By: Michael Avila on 04-30-2022 GFR/1.73 sq M.predicted among non-blacks MDRD (S/P/Bld) [Vol rate/Area] > 60 mL/Min [facility] Globulin Calc (S) [Mass/Vol] Ordered By: Michael Avila on 04-30-2022 Globulin (S) [Mass/Vol] 3.2 g/dL [facility] HCG ( test) IA.rapi d Ql (U)Ordered By: Michael Avila on 04-30-2022 HCG ( test) Ql (U) Negative [facility] HCG,Urineon 04-30-2022 Beta HCG ( test) Ql (U) Negative Normal [facility] Comment on above: Order Comment: Name Collection Type:: Clean-Voided Midstream Result Comment: PERF ORMED BY: [place] [address] PATHOLOGIST ACCOUNTS PAYABLE SUPERVISOR YANETH CEDILLO M.D. Performed By: #### A DDONUAPLUS, C #### [facility] [address] Hematocrit Auto (Bld) [Volum e fraction]Ordered By: Michael Avila on 04-30-2022 Hematocrit (Bld) [Volume fraction] 44.8 % 34.0-46.4 [facility] Hepatic Panelon 04-30-2022 Albumin [Mass/Vol] 3.4 g/dL Normal 3.2-5.5 [facility] Comment on above: Performed By: #### C BC, BMP, LIPASE, TSH3, HEPATIC #### [facility] [address] Albumin/Globulin [Mass ratio] 1.1 {ratio} Normal [facility] Comment on above: Performed By: #### C BC, BMP, LIPASE, TSH3, HEPATIC #### [facility] [address] [place] [id number] [facility] ALP [Catalytic activity/Vol] 111 U/L High 32-92 [facility] Comment on above: Performed By: #### C BC, BMP, LIPASE, TSH3, HEPATIC #### [facility] [address] [place] [id number] [facility] [place] ALT [Catalytic activity/Vol] 48 U/L Normal 10-60 [facility] Comment on above: Performed By: #### C BC, BMP, LIPASE, TSH3, HEPATIC #### [facility] [address] AST [Catalytic activity/Vol] 94 U/L High 10-42 [facility] Comment on above: Performed By: #### C BC, BMP, LIPASE, TSH3, HEPATIC #### [facility] [address] Bilirubin [Mass/Vol] 1.7 mg/dL High 0.3-1.2 [facility] Comment on above: Result Comment: Samp les from patients who have taken Naproxen have shown spurious elevation in Total Bilirubin levels. A metabolite of Naproxen, O-desmethylnaproxen, has been shown to interfere with the Jendrassik-Grof method for measuring Total Bilirubin. Performed By: #### C BC, BMP, LIPASE, TSH3, HEPATIC #### [facility] [address] [place] [address] [place] Bilirubin,Indirect 1.3 mg/dL Normal [facility] Comment on above: Performed By: #### C BC, BMP, LIPASE, TSH3, HEPATIC #### [facility] [address] [place] [id number] [facility] [place] Bilirubin.indirect [Mass/Vol] 0.4 mg/dL Normal 0.0-0.4 [facility] Comment on above: Performed By: #### C BC, BMP, LIPASE, TSH3, HEPATIC #### [facility] [address] [place] [address] [place] Globulin (S) [Mass/Vol] 3.2 g/dL Normal [facility] Comment on above: Performed By: #### C BC, BMP, LIPASE, TSH3, HEPATIC #### [facility] [address] Protein [Mass/Vol] 6.6 g/dL Normal 6.1-7.9 [facility] Comment on above: Result Comment: Spec imen lipemic. Specimen Ultracentrifuged before testing. Performed By: #### C BC, BMP, LIPASE, TSH3, HEPATIC #### [facility] [address] Ketones Auto test strip (U) [Mass/Vol]Ordered By: Michael Avila on 04-30-2022 Ketones (U) [Mass/Vol] Negative Negative [facility] Laboratory - Chemistry and C hemistry - challengeOrdered By: Michael Avila on 04-30-2022 Lipase [Catalytic activity/Vol] 24.0 U/L [facility] Comment on above: Specimen lipemic. Specimen Ultracentrifuged before testing. Laboratory - Hematology and Cell countsOrdered By: Michael Avila on 04-30-2022 Nucleated RBC/100 WBC (Bld) [Ratio] 0.0 % 0-0.5 [facility] Laboratory - UrinalysisOrder ed By: Michael Avila on 04-30-2022 Hyaline casts LM Ql (Urine sed) 9-19 [LPF] [facility] Lipaseon 04-30-2022 Lipase [Catalytic activity/Vol] 24.0 U/L Normal [facility] Comment on above: Result Comment: Spec imen lipemic. Specimen Ultracentrifuged before testing. Performed By: #### C BC, BMP, LIPASE, TSH3, HEPATIC #### [facility] [address] Lymphocytes Auto (Bld) [#/Vo l]Ordered By: Michael Avila on 04-30-2022 Lymphocytes (Bld) [#/Vol] 1.5 10*3/uL 1.00-4.8 [facility] Lymphocytes/100 WBC Auto (Bl d)Ordered By: Michael Avila on 04-30-2022 Lymphocytes/100 WBC (Bld) 21.1 % [facility] MCH Auto (RBC) [Entitic mass ]Ordered By: Michael Avila on 04-30-2022 MCH (RBC) [Entitic mass] 34.6 pg 24.7-34.3 [facility] MCHC Auto (RBC) [Mass/Vol]Or dered By: Michael Avila on 04-30-2022 MCHC (RBC) [Mass/Vol] 34.4 g/dL 32.0-35.0 [facility] MCV Auto (RBC) [Entitic vol] Ordered By: Michael Avila on 04-30-2022 MCV (RBC) [Entitic vol] 100.6 fL 80-100 [facility] Monocytes Auto (Bld) [#/Vol] Ordered By: Michael Avila on 04-30-2022 Monocytes (Bld) [#/Vol] 0.7 10*3/uL 0.0-0.8 [facility] Monocytes/100 WBC Auto (Bld) Ordered By: Michael Avila on 04-30-2022 Monocytes/100 WBC (Bld) 9.5 % [facility] Neutrophils Auto (Bld) [#/Vo l]Ordered By: Michael Avila on 04-30-2022 Neutrophils (Bld) [#/Vol] 4.8 10*3/uL 1.8-7.7 [facility] Neutrophils/100 WBC Auto (Bl d)Ordered By: Michael Avila on 04-30-2022 Neutrophils/100 WBC (Bld) 67.0 % [facility] Nitrite Test strip Ql (U)Ord ered By: Michael vAila on 04-30-2022 Nitrite Ql (U) Negative Negative [facility] No Panel InformationOrdered By: Michael Avila on 04-30-2022 Estimated GFR () > 60 mL/Min [facility] Comment on above: GFR estimated refere nce range: According to KDOQI guidelines, <60 ml/min/1.73m2 is sufficient to diagnose a patient with chronic kidney disease. Pharmacy Creatinine Clearance (Chem 68.37 [facility] Platelet mean volume Auto (B ld) [Entitic vol]Ordered By: Michael Avila on 04-30-2022 Platelet mean volume (Bld) [Entitic vol] 8.0 fL 6.3-10.7 [facility] Platelets Auto (Bld) [#/Vol] Ordered By: Michael Avila on 04-30-2022 Platelets (Bld) [#/Vol] 336 10*3/uL 150-450 [facility] Protein Auto test strip (U) [Mass/Vol]Ordered By: Michael Avila on 04-30-2022 Protein (U) [Mass/Vol] 30 mg/dL Negative [facility] Protein [Mass/volume] in Ser um or PlasmaOrdered By: Michael Avila on 04-30-2022 Protein [Mass/Vol] 6.6 g/dL 6.1-7.9 [facility] Comment on above: Specimen lipemic. Specimen Ultracentrifuged before testing. RBC Auto (Bld) [#/Vol]Ordere d By: Michael Avila on 04-30-2022 RBC (Bld) [#/Vol] 4.46 10*6/uL 3.60-5.00 [facility] Serum or plasma alanine palacio otransferase measurement without P-5'-P (enzymatic activiOrdered By: Michael Avila on 04-30-2022 ALT No additional P-5'-P [Catalytic activity/Vol] 48 U/L 10-60 [facility] Serum or plasma albumin/glob ulin mass ratioOrdered By: Michael Avila on 04-30-2022 Albumin/Globulin [Mass ratio] 1.1 {ratio} [facility] Serum or plasma alkaline heena sphatase measurement (enzymatic activity/volume)Ordered By: Michael Avila on 04-30-2022 ALP [Catalytic activity/Vol] 111 U/L 32-92 [facility] Serum or plasma aspartate am inotransferase measurement (enzymatic activity/volume)Ordered By: Michael Avila on 04-30-2022 AST [Catalytic activity/Vol] 94 U/L 10-42 [facility] Serum or plasma calcium judy urement (mass/volume)Ordered By: Michael Avila on 04-30-2022 Calcium [Mass/Vol] 9.0 mg/dL 8.2-10.2 [facility] Serum or plasma chloride angeline surement (moles/volume)Ordered By: Michael Avila on 04-30-2022 Chloride [Moles/Vol] 99 mmol/L 95-114 [facility] Serum or plasma glucose judy urement (mass/volume)Ordered By: Michael Avila on 04-30-2022 Glucose [Mass/Vol] 114 mg/dL 70-100 [facility] Comment on above: ADA recommended refe rence range Random Glucose Reference Range is dependent on time and content of last meal. Glucose of more than 200 mg/dL in a nonstressed, ambulatory subject supports the diagnosis of Diabetes Mellitus. Serum or plasma non-glucuron idated bilirubin measurement (mass/volume)Ordered By: Michael Avila on 04-30-2022 Bilirubin.indirect [Mass/Vol] 1.3 mg/dL [facility] Serum or plasma potassium me asurement (moles/volume)Ordered By: Michael Avila on 04-30-2022 Potassium [Moles/Vol] 3.7 mmol/L 3.5-5.1 [facility] Serum or plasma sodium measu rement (moles/volume)Ordered By: Michael Avila on 04-30-2022 Sodium [Moles/Vol] 136 mmol/L 136-146 [facility] Serum or plasma total biliru bin measurement (mass/volume)Ordered By: Michael Avila on 04-30-2022 Bilirubin [Mass/Vol] 1.7 mg/dL 0.3-1.2 [facility] Comment on above: Samples from patient s who have taken Naproxen have shown spurious elevation in Total Bilirubin levels. A metabolite of Naproxen, O-desmethylnaproxen, has been shown to interfere with the Ifeanyi-Manjeet method for measuring Total Bilirubin. Serum or plasma total carbon dioxide measurement (moles/volume)Ordered By: Michael Avila on 04-30-2022 CO2 [Moles/Vol] 22.8 mmol/L 22.0-30.0 [facility] Serum or plasma urea nitroge n measurement (mass/volume)Ordered By: Michael Avila on 04-30-2022 Urea nitrogen [Mass/Vol] 7 mg/dL 07-31 [facility] Specific gravity Auto test s trip (U) [Rel density]Ordered By: Michael Avila on 04-30-2022 Specific gravity (U) [Rel density] 1.021 1.001-1.030 [facility] Squamous epithelial cells de tection in urine sediment by light microscopyOrdered By: Michael Avila on 04-30-2022 Epithelial cells.squamous LM Ql (Urine sed) 3-4 [HPF] [facility] TSH DL <= 0.005 mIU/L QnOrde red By: Michael Avila on 04-30-2022 TSH Qn 9.77 m[IU]/L 0.45-5.33 [facility] Thyroid Stimulating Hormoneo n 04-30-2022 TSH Qn 9.77 m[IU]/L High 0.45-5.33 [facility] Comment on above: Result Comment: PERF ORMED BY: [place] [address] PATHOLOGIST ACCOUNTS PAYABLE SUPERVISOR YANETH CEDILLO M.D. Performed By: #### C BC, BMP, LIPASE, TSH3, HEPATIC #### [address] Urine bacteria detection by automated methodOrdered By: Michael Avila on 04-30-2022 Bacteria Auto Ql (U) None seen None Seen [facility] Urine clarity by refractomet ry automatedOrdered By: Michael Avila on 04-30-2022 Clarity Refractometry automated (U) Clear Clear [facility] Urine glucose measurement by automated test strip (mass/volume)Ordered By: Michael Avila on 04-30-2022 Glucose Auto test strip (U) [Mass/Vol] Normal mg/dL Normal [facility] Urine hemoglobin detection b y automated test stripOrdered By: Michael Avila on 04-30-2022 Hemoglobin Auto test strip Ql (U) Negative Negative [facility] Urine leukocyte esterase det ection by automated test stripOrdered By: Michael Avila on 04-30-2022 Leukocyte esterase Auto test strip Ql (U) Negative Negative [facility] Urine sediment renal epithel ial cell count by microscopy (number/high power field)Ordered By: Michael Avila on 04-30-2022 Epithelial cells.renal LM.HPF (Urine sed) [#/Area] None seen [HPF] [facility] Urobilinogen Auto test strip (U) [Mass/Vol]Ordered By: Michael Avila on 04-30-2022 Urobilinogen (U) [Mass/Vol] Normal mg/dL Normal [facility] pH Auto test strip (U)Ordere d By: Michaelyumiko Avila on 04-30-2022 pH (U) 6.5 [pH] 5.0-9.0 [facility] XR CHEST 2 Von 03-24-2022 XR CHEST 2 V EXAMINATION: XR CHES T 2 V HISTORY: Palpitations ; acute right chest pain COMPARISON: XR abdomen with PA chest 02/22/2022 FINDINGS: LUNGS: No significant pulmonary parenchymal abnormalities. VASCULATURE: No increased pulmonary vasculature. PLEURA: No pneumothorax, effusion, or pleural thickening. CARDIAC: No cardiomegaly or cardiac silhouette abnormality. MEDIASTINUM: No visible mass or adenopathy. BONES: Prior sternotomy. No visible fracture. OTHER: Negative. IMPRESSION: 1. No acute cardiopulmonary process or findings to account for patient's symptoms. Electronically authenticated by: INGRIS MONDRAGON Date: 2022-03-24 12:56 Normal [facility] AMMONIAon 02-22-2022 Ammonia (P) [Moles/Vol] 32 umol/L Normal 11-32 [facility] Comment on above: Performed By: #### C BC #### [facility] [address] [place] [address] Dr. Jacqueline Mays CBC AUTO DIFFon 02-22-2022 BASO # 0.1 103/ul Normal 0.0-0.1 [facility] Comment on above: Performed By: #### C BC #### [facility] [address] [address] [address] Jacqueline Mays Basophils/100 WBC (Bld) 0.9 % Normal 0.2-2.0 [facility] Comment on above: Performed By: #### C BC #### [facility] [address] [place] [address] Dr. Jacqueline Mays EO # 0.0 103/ul Normal 0.0-0.7 [facility] Comment on above: Performed By: #### C BC #### [facility] [address] [place] [address] Dr. Jacqueline Mays Eosinophils/100 WBC (Bld) 0.8 % Critically low 0.9-7.0 [facility] Comment on above: Performed By: #### C BC #### [facility] [address] [place] [address] Dr. Jacqueline Mays Erythrocyte distribution width (RBC) [Ratio] 14.5 % Normal 11.0-15.0 [facility] Comment on above: Performed By: #### C BC #### [facility] [address] [place] [address] Dr. Jacqueline Mays Hematocrit (Bld) [Volume fraction] 39.8 % Normal 36.0-48.0 [facility] Comment on above: Performed By: #### C BC #### [facility] [address] [place] [address] Dr. Jacqueline Mays Hemoglobin (Bld) [Mass/Vol] 13.8 g/dL Normal 12.0-16.0 [facility] Comment on above: Performed By: #### C BC #### [facility] [address] [place] [address] Dr. Jacqueline Mays IG # 0.02 10e3/ul Normal 0.00-0.03 [facility] Comment on above: Performed By: #### C BC #### [facility] [address] [place] [address] Dr. Jacqueline Mays IG % 0.4 % Normal 0.0-0.5 [facility] Comment on above: Performed By: #### C BC #### [facility] [address] [place] [address] Dr. Jacqueline Mays LYMPH # 1.8 103/ul Normal 1.2-3.8 [facility] Comment on above: Performed By: #### C BC #### [facility] [address] [place] [address] Dr. Jacqueline Mays Lymphocytes/100 WBC (Bld) 33.0 % Normal 20.5-60.0 [facility] Comment on above: Performed By: #### C BC #### [facility] [address] [place] [address] Dr. Jacqueline Mays MANUAL DIFF REQ NO Normal [facility] Comment on above: Performed By: #### C BC #### [facility] [address] [place] [address] Dr. Jacqueline Mays MCH (RBC) [Entitic mass] 33.4 pg Normal 26.7-34.0 [facility] Comment on above: Performed By: #### C BC #### [facility] [address] [place] [address] Dr. Jacqueline Mays MCHC (RBC) [Mass/Vol] 34.7 g/dL Normal 29.9-35.2 [facility] Comment on above: Performed By: #### C BC #### [facility] [address] [place] [address] Dr. Jacqueline Mays MCV (RBC) [Entitic vol] 96.4 fL Normal 81.0-99.0 [facility] Comment on above: Performed By: #### C BC #### [facility] [address] [place] [address] Dr. Jacqueline Mays MONO # 0.4 103/ul Normal 0.3-0.8 [facility] Comment on above: Performed By: #### C BC #### [facility] [address] [place] [address] Dr. Jacqueline Mays Monocytes/100 WBC (Bld) 6.8 % Normal 1.7-12.0 [facility] Comment on above: Performed By: #### C BC #### [facility] [address] [place] [address] Dr. Jacqueline Mays NEUT # 3.1 103/ul Normal 1.4-6.5 [facility] Comment on above: Performed By: #### C BC #### [facility] [address] [place] [address] Dr. Jacqueline Mays Neutrophils/100 WBC (Bld) 58.1 % Normal 43.0-75.0 [facility] Comment on above: Performed By: #### C BC #### [facility] [address] [place] [address] Dr. Jacqueline Mays Platelet mean volume (Bld) [Entitic vol] 9.3 fL Critically low 9.5-13.5 [facility] Comment on above: Performed By: #### C BC #### [facility] [address] [place] [address] Dr. Jacqueline Mays PLT 296 103/ul Normal 150-450 [facility] Comment on above: Performed By: #### C BC #### [facility] [address] [address] [address] Jacqueline Mays RBC 4.13 106/ul Critically low 4.20-5.40 [facility] Comment on above: Performed By: #### C BC #### [facility] [address] [place] [address] Dr. Jacqueline Mays WBC 5.3 103/ul Normal 4.0-11.0 [facility] Comment on above: Performed By: #### C BC #### [facility] [address] [place] [address] Dr. Jacqueline Mays Covid-19 PCR ([facility])on 02-06 SARS-CoV-2 (COVID-19) RNA JAS+probe Ql (Unsp spec) Not detected Normal NOT DETECTED [facility] Comment on above: Result Comment: When diagnostic testing is negative, the possibility of a false negative should be considered in the context of a patient's recent exposures and the presence of clinical signs and symptoms consistent with SARS-CoV-2. This test is not yet approved or cleared by the [place] FDA. When there are no FDA-approved or cleared tests available, and other criteria are met, FDA can make tests available under an emergency access mechanism called an Emergency Use Authorization (EUA). The EUA for this test is supported by the [place] of Health and Human Service's declaration that circumstances exist to justify the emergency use of in vitro diagnostics for the detection and/or diagnosis of the virus that causes COVID-19. This EUA will remain in effect for the duration of the COVID-19 declaration justifying emergency of IVDs, unless it is terminated or revoked by the FDA (after which the test may no longer be used). Performed By: #### C BC #### [facility] [address] [place] [address] Dr. Jacqueline Mays ER URINE PROFILEon 2 Bilirubin Ql (U) Negative Normal NEGATIVE [facility] Comment on above: Performed By: #### C BC #### [facility] [address] [place] [address] Dr. Jacqueline Mays Clarity (U) CLEAR Normal CLEAR [facility] Comment on above: Performed By: #### C BC #### [facility] [address] [place] [address] Dr. Jacqueline Mays Color (U) YELLOW Normal YELLOW [facility] Comment on above: Performed By: #### C BC #### [facility] [address] [place] [address] Dr. Jacqueline CELAYA A micrscopic examination will be performed if indicated. Normal [facility] Comment on above: Performed By: #### C BC #### [facility] [address] [place] [address] Dr. Jacqueline Mays Glucose Ql (U) Negative Normal NEGATIVE [facility] Comment on above: Performed By: #### C BC #### [facility] [address] [place] [address] Dr. Jacqueline Mays Hemoglobin Ql (U) Negative Normal NEGATIVE [facility] Comment on above: Performed By: #### C BC #### [facility] [address] [place] [address] Dr. Jacqueline Mays Ketones Ql (U) Negative Normal NEGATIVE [facility] Comment on above: Performed By: #### C BC #### [facility] [address] [place] [address] Dr. Jacqueline Mays LEUKOCYTES Negative Normal NEGATIVE [facility] Comment on above: Performed By: #### C BC #### [facility] [address] [place] [address] Dr. Jacqueline Mays Nitrite Ql (U) Negative Normal NEGATIVE [facility] Comment on above: Performed By: #### C BC #### [facility] [address] [place] [address] Dr. Jacqueline Mays pH (U) 7.0 [pH] Normal 5-9 [facility] Comment on above: Performed By: #### C BC #### [facility] [address] [place] [address] Dr. Jacqueline Mays SPEC GRAVITY 1.010 Normal 1.005-<=1.02 5 [facility] Comment on above: Performed By: #### C BC #### [facility] [address] [place] [address] Dr. Jacqueline Mays UA PROTEIN Negative Normal NEGATIVE/ TRACE [facility] Comment on above: Performed By: #### C BC #### [facility] [address] [place] [address] Dr. Jacqueline Mays UR MICRO IND NOT INDICATED Normal [facility] Comment on above: Performed By: #### C BC #### [facility] [address] [place] [address] Dr. Jacqueline Mays Urobilinogen Qn (U) 0.2 {Tristan'U}/dL Normal 0.2 - 1. 0 [facility] Comment on above: Performed By: #### C BC #### [facility] [address] [place] [address] Dr. Jacqueline Mays ETHANOL (BLD ALC)on 02-23-20 22 ALC NOTE NOTE: 80 mg/dl is th e legal limit for a blood alcohol level Normal [facility] Comment on above: Performed By: #### C BC #### [facility] [address] [place] [address] Dr. Jacqueline Mays Ethanol [Mass/Vol] 32 mg/dL Normal [facility] Comment on above: Performed By: #### C BC #### [facility] [address] [place] [address] Dr. Jacqueline Mays INFLUENZA A AND B AGon 02-22 INFLUENZA A AG Negative Normal NEGATIVE SEE COMMENT [facility] Comment on above: Performed By: #### I NFLUAB #### [facility] [address] [place] [address] Dr. Jacqueline Mays INFLUENZA B AG Negative Normal NEGATIVE SEE COMMENT [facility] Comment on above: Performed By: #### I NFLUAB #### [facility] [address] [address] [address] Jacqueline Mays INTERNAL CONTROLS Within Normal Limits Normal Wi thin Normal Limits [facility] Comment on above: Performed By: #### I NFLUAB #### [facility] [address] [address] [address] Jacqueline Mays LIPASEon 02-22-2022 Lipase [Catalytic activity/Vol] 104.0 U/L Normal 23.0-300.0 [facility] Comment on above: Performed By: #### H STROPN, LIPA, CMP #### [facility] [address] [address] [address] Jacqueline Mays MAGNESIUMon 02-22-2022 Magnesium [Mass/Vol] 1.8 mg/dL Normal 1.6-2.3 [facility] Comment on above: Performed By: #### M G #### [facility] [address] [place] [address] Dr. Jacqueline Mays PROF 14(COMP METB)on 022 Albumin [Mass/Vol] 3.4 g/dL Normal 3.4-5.0 [facility] Comment on above: Performed By: #### H STROPN, LIPA, CMP #### [facility] [address] [place] [address] Dr. Jacqueline Mays Albumin/Globulin [Mass ratio] 1.0 {ratio} Normal [facility] Comment on above: Performed By: #### H STROPN, LIPA, CMP #### [facility] [address] [place] [address] Dr. Jacqueline Mays ALP [Catalytic activity/Vol] 116 U/L Normal 46-116 [facility] Comment on above: Performed By: #### H STROPN, LIPA, CMP #### [facility] [address] [place] [address] Dr. Jacqueline Mays ALT [Catalytic activity/Vol] 66 U/L Critically high 14-59 [facility] Comment on above: Performed By: #### H STROPN, LIPA, CMP #### [facility] [address] [place] [address] Dr. Jacqueline Mays Anion gap [Moles/Vol] 16.1 mmol/L Normal [facility] Comment on above: Performed By: #### H STROPN, LIPA, CMP #### [facility] [address] [address] [address] Jacqueline Mays AST [Catalytic activity/Vol] 79 U/L Critically high 15-37 [facility] Comment on above: Performed By: #### H STROPN, LIPA, CMP #### [facility] [address] [address] [address] Jacqueline Mays Bilirubin [Mass/Vol] 0.9 mg/dL Normal 0.2-1.3 [facility] Comment on above: Performed By: #### H STROPN, LIPA, CMP #### [facility] [address] [address] [address] Jacqueline Mays Calcium [Mass/Vol] 8.2 mg/dL Critically low 8.5-10.1 [facility] Comment on above: Performed By: #### H STROPN, LIPA, CMP #### [facility] [address] [address] [address] Jacqueline Mays Chloride [Moles/Vol] 101 mmol/L Normal 98-107 [facility] Comment on above: Performed By: #### H STROPN, LIPA, CMP #### [facility] [address] [address] [address] Jacqueline Mays CO2 [Moles/Vol] 24.7 mmol/L Normal 22.0-30.0 [facility] Comment on above: Performed By: #### H STROPN, LIPA, CMP #### [facility] [address] [address] [address] Jacqueline Mays Creatinine [Mass/Vol] 0.68 mg/dL Normal 0.52-1.04 [facility] Comment on above: Performed By: #### H STROPN, LIPA, CMP #### [facility] [address] [address] [address] Jacqueline Mays EGFR-AF SAMOAN >60 Normal >=60 [facility] Comment on above: Performed By: #### H STROPN, LIPA, CMP #### [facility] [address] [address] [address] Jacqueline Mays EGFR-NON AF SAMOAN >60 Normal >=60 [facility] Comment on above: Performed By: #### H STROPN, LIPA, CMP #### [facility] [address] [address] [address] Jacqueline Mays Globulin (S) [Mass/Vol] 3.4 g/dL Normal [facility] Comment on above: Performed By: #### H STROPN, LIPA, CMP #### [facility] [address] [address] [address] Jacqueline Mays Glucose [Mass/Vol] 146 mg/dL Critically high 74-106 [facility] Comment on above: Performed By: #### H STROPN, LIPA, CMP #### [facility] [address] [address] [address] Jacqueline Mays Potassium [Moles/Vol] 2.8 mmol/L Critically low 3.4-5.0 [facility] Comment on above: Performed By: #### H STROPN, LIPA, CMP #### [facility] [address] [address] [address] Jacqueline Mays Protein [Mass/Vol] 6.8 g/dL Normal 6.1-8.2 [facility] Comment on above: Performed By: #### H STROPN, LIPA, CMP #### [facility] [address] [address] [address] Jacqueline Mays Sodium [Moles/Vol] 139 mmol/L Normal 137-145 [facility] Comment on above: Performed By: #### H STROPN, LIPA, CMP #### [facility] [address] [address] [address] Jacqueline Mays Urea nitrogen [Mass/Vol] 6.0 mg/dL Critically low 7.0-18.0 [facility] Comment on above: Performed By: #### H STROPN, LIPA, CMP #### [facility] [address] [address] [address] Jacqueline Mays Urea nitrogen/Creatinine [Mass ratio] 8.8 mg/mg Normal [facility] Comment on above: Performed By: #### H STUART DICKERSON, CMP #### [facility] [address] [place] [address] Dr. Jacqueline Mays PROTIMEon 02-22-2022 INR Coag (PPP) [Relative time] 1.04 {INR} Normal [facility] Comment on above: Performed By: #### P TT, PT #### [facility] [address] [place] [address] Dr. Jacqueline Mays INR GUIDELINES SEE BELOW Normal [facility] Comment on above: Result Comment: ILAN RED INR: 2.0 - 3.0 CONDITIONS NOT LISTED BELOW 2.5 - 3.5 FOR PROSTHETIC HEART VALVE REPLACEMENT 2.5 - 3.5 RECURRENT THROMBOSIS Performed By: #### P TT, PT #### [facility] [address] [place] [address] Dr. Jacqueline Mays PT Coag (PPP) [Time] 11.2 s Normal 9.0-11.6 [facility] Comment on above: Performed By: #### P TT, PT #### [facility] [address] [place] [address] Dr. Jacqueline Mays PTTon 02-22-2022 aPTT Coag (Bld) [Time] 24.0 s Normal 22.3-36.2 [facility] Comment on above: Performed By: #### P TT, PT #### [facility] [address] [place] [address] Dr. Jacqueline Mays TROPONIN, HIGH SENSITIVITYon 02-22-2022 HSTROP 6.2 pg/mL Normal 4.0-35.5 [facility] Comment on above: Result Comment: CUT- OFF POINTS HAVE BEEN ESTABLISHED BASED ON THE FOURTH UNIVERSAL DEFINITIONS OF MYOCARDIAL INFARCTION. THE UPPER REFERENCE LIMIT (URL) OF TROPONIN, DEFINED THE 99TH PERCENTILE OF cTnI DISTRIBUTION IN A REFERENCE POPULATION, HAS BEEN CONFIRMED THE DECISION THRESHOLD FOR [place] DIAGNOSIS. Performed By: #### H JUAN DICKERSONA, CMP #### [facility] [address] [place] [address] Dr. Jacqueline Mays XR ABD FLAT UP_PA Juliocesar 02-22 XR ABD FLAT UP_PA CH EXAM: XR ABD FLAT UP_PA CH INDICATION: Vomiting for days. COMPARISON: CT abdomen pelvis 03/05/2021. TECHNIQUE: Supine AP view of the abdomen FINDINGS: Nonobstructive bowel gas pattern. No evidence of free intra-abdominal air in provided supine views. No pneumatosis or portal venous gas. Unremarkable visceral margins. No suspicious calcifications. No acute osseous abnormality. Changes of median sternotomy. Normal cardiomediastinal contours. Clear lungs. No pleural effusion or pneumothorax. IMPRESSION: 1. No radiographic evidence of acute abdominal process. 2. No acute cardiopulmonary process. Electronically authenticated by: LEENA KING Date: 2022-02-22 12:33 Normal [facility] CELIAC ANTIBODIES PROFILEon 11-14-2021 Deamidated Gliadin Abs, IgA 7 units Normal 0-19 [facility] Comment on above: Result Comment: Nega tive 0 - 19 Weak Positive 20 - 30 Moderate to Strong Positive >30 Performed By: #### I NFLUAB #### [facility] [address] [address] [address] Jacqueline Mays Deamidated Gliadin Abs, IgG 2 units Normal 0-19 [facility] Comment on above: Result Comment: Nega tive 0 - 19 Weak Positive 20 - 30 Moderate to Strong Positive >30 Performed By: #### I NFLUAB #### [facility] [address] [address] [address] Jacqueline Mays Endomysial Antibody IgA Negative Normal Negative [facility] Comment on above: Performed By: #### I NFLUAB #### [facility] [address] [address] [address] Jacqueline Mays Immunoglobulin A, Qn, Serum 256 mg/dL Normal 87-352 [facility] Comment on above: Performed By: #### I NFLUAB #### [facility] [address] [address] [address] Jacqueline Mays t-Transglutaminase (tTG) IgA <2 Normal 0-3 [facility] Comment on above: Result Comment: Nega tive 0 - 3 Weak Positive 4 - 10 Positive >10 . Tissue Transglutaminase (tTG) has been identified as the endomysial antigen. Studies have demonstr- ated that endomysial IgA antibodies have over 99% specificity for gluten sensitive enteropathy. Performed By: #### I NFLUAB #### [facility] [address] [address] [address] Jacqueline Mays t-Transglutaminase (tTG) IgG <2 Normal 0-5 [facility] Comment on above: Result Comment: Nega tive 0 - 5 Weak Positive 6 - 9 Positive >9 Performed By: #### I NFLUAB #### [facility] [address] [address] [address] Jacqueline Mays KENZIE DIRECTon 11-13-2021 KENZIE Direct Negative Normal Negative [facility] Comment on above: Performed By: #### C BC #### [facility] [address] [place] [address] Dr. Jacqueline Mays KENZIE by IFAon 11-13-2021 Antinuclear Antibodies, IFA Negative Normal [facility] Comment on above: Result Comment: Nega tive <1:80 Borderline 1:80 Positive >1:80 ICAP nomenclature: AC-0 For more information about Hep-2 cell patterns use ANApatterns.org, the official website for the International Consensus on Antinuclear Antibody (KENZIE) Patterns (ICAP). Performed By: #### C BC #### [facility] [address] [place] [address] Dr. Jacqueline Mays ANTISTREPTOLYSIN O AB (ASO)o n 11-13-2021 Antistreptolysin O Ab <20.0 Normal 0.0-200.0 [facility] Comment on above: Performed By: #### C BC #### [facility] [address] [place] [address] Dr. Jacqueline Mays C3 and C4 COMPLEMENTon 11-13 Complement C3, Serum 114 mg/dL Normal 82-167 [facility] Comment on above: Performed By: #### C BC #### [facility] [address] [place] [address] Dr. Jacqueline Mays Complement C4, Serum 22 mg/dL Normal 12-38 [facility] Comment on above: Performed By: #### C BC #### [facility] [address] [address] [address] Jacqueline Mays RHEUMATOID FACTORon 11-13-19 RA Latex Turbid. 11.1 IU/mL Normal <14.0 [facility] Comment on above: Performed By: #### I NFLUAB #### [facility] [address] [address] [address] Jacqueline Mays SLE PROFILE Aon 11-13-2021 Anti-DNA (DS) Ab Qn <1 Normal 0-9 [facility] Comment on above: Result Comment: Nega tive <5 Equivocal 5 - 9 Positive >9 Performed By: #### I NFLUAB #### [facility] [address] [place] [address] Dr. Jacqueline Mays Antichromatin Antibodies <0.2 Normal 0.0-0.9 [facility] Comment on above: Performed By: #### I NFLUAB #### [facility] [address] [place] [address] Dr. Jacqueline Mays RA Latex Turbid. 10.4 IU/mL Normal <14.0 [facility] Comment on above: Performed By: #### I NFLUAB #### [facility] [address] [place] [address] Dr. Jacqueline Mays CONCESSION MANAGER Antibodies 0.3 AI Normal 0.0-0.9 The [facility] Comment on above: Performed By: #### I NFLUAB #### [facility] [address] [address] [address] Jacqueline Mays Sjogren's Anti-SS-A <0.2 Normal 0.0-0.9 [facility] Comment on above: Performed By: #### I NFLUAB #### [facility] [address] [address] [address] Jacqueline Mays Sjogren's Anti-SS-B <0.2 Normal 0.0-0.9 [facility] Comment on above: Performed By: #### I NFLUAB #### [facility] [address] [place] [address] Dr. Jacqueline Mays Cain Antibodies <0.2 Normal 0.0-0.9 [facility] Comment on above: Performed By: #### I NFLUAB #### [facility] [address] [place] [address] Dr. Jacqueline Mays AMMONIAon 11-12-2021 Ammonia (P) [Moles/Vol] 19 umol/L Normal 10-30 [facility] Comment on above: Performed By: #### A MM #### [facility] [address] [place] [address] Dr. Jacqueline Mays AMYLASEon 11-12-2021 Amylase [Catalytic activity/Vol] 43 U/L Normal 31-110 [facility] Comment on above: Performed By: #### I NFLUAB #### [facility] [address] [place] [address] Dr. Jacqueline Mays CBC AUTO DIFFon 11-12-2021 BASO # 0.1 103/ul Normal 0.0-0.1 [facility] Comment on above: Performed By: #### C BC #### [facility] [address] [place] [address] Dr. Jacqueline Mays Basophils/100 WBC (Bld) 0.6 % Normal 0.2-2.0 [facility] Comment on above: Performed By: #### C BC #### [facility] [address] [place] [address] Dr. Jacqueline Mays EO # 0.3 103/ul Normal 0.0-0.7 [facility] Comment on above: Performed By: #### C BC #### [facility] [address] [place] [address] Dr. Jacqueline Mays Eosinophils/100 WBC (Bld) 3.1 % Normal 0.9-7.0 [facility] Comment on above: Performed By: #### C BC #### [facility] [address] [place] [address] Dr. Jacqueline Mays Erythrocyte distribution width (RBC) [Ratio] 12.8 % Normal 11.0-15.0 [facility] Comment on above: Performed By: #### C BC #### [facility] [address] [address] [address] Jacqueline Mays Hematocrit (Bld) [Volume fraction] 48.7 % Critically high 36.0-48.0 [facility] Comment on above: Performed By: #### C BC #### [facility] [address] [address] [address] Jacqueline Mays Hemoglobin (Bld) [Mass/Vol] 16.5 g/dL Critically high 12.0-16.0 [facility] Comment on above: Performed By: #### C BC #### [facility] [address] [address] [address] Jacqueline Mays IG # 0.04 10e3/ul Critically high 0.00-0.03 [facility] Comment on above: Performed By: #### C BC #### [facility] [address] [address] [address] Jacqueline Mays IG % 0.5 % Normal 0.0-0.5 [facility] Comment on above: Performed By: #### C BC #### [facility] [address] [address] [address] Jacqueline Mays LYMPH # 2.2 103/ul Normal 1.2-3.8 [facility] Comment on above: Performed By: #### C BC #### [facility] [address] [address] [address] Jacqueline Mays Lymphocytes/100 WBC (Bld) 25.6 % Normal 20.5-60.0 [facility] Comment on above: Performed By: #### C BC #### [facility] [address] [address] [address] Jacqueline Mays MANUAL DIFF REQ NO Normal [facility] Comment on above: Performed By: #### C BC #### [facility] [address] [address] [address] Jacqueline Mays MCH (RBC) [Entitic mass] 33.1 pg Normal 26.7-34.0 [facility] Comment on above: Performed By: #### C BC #### [facility] [address] [address] [address] Jacqueline Mays MCHC (RBC) [Mass/Vol] 33.9 g/dL Normal 29.9-35.2 [facility] Comment on above: Performed By: #### C BC #### [facility] [address] [address] [address] Jacqueline Mays MCV (RBC) [Entitic vol] 97.8 fL Normal 81.0-99.0 [facility] Comment on above: Performed By: #### C BC #### [facility] [address] [address] [address] Jacqueline Mays MONO # 0.6 103/ul Normal 0.3-0.8 [facility] Comment on above: Performed By: #### C BC #### [facility] [address] [place] [address] Dr. Jacqueline Mays Monocytes/100 WBC (Bld) 7.0 % Normal 1.7-12.0 [facility] Comment on above: Performed By: #### C BC #### [facility] [address] [place] [address] Dr. Jacqueline Mays NEUT # 5.3 103/ul Normal 1.4-6.5 [facility] Comment on above: Performed By: #### C BC #### [facility] [address] [place] [address] Dr. Jacqueline Mays Neutrophils/100 WBC (Bld) 63.2 % Normal 43.0-75.0 [facility] Comment on above: Performed By: #### C BC #### [facility] [address] [place] [address] Dr. Jacqueline Mays Platelet mean volume (Bld) [Entitic vol] 8.7 fL Critically low 9.5-13.5 [facility] Comment on above: Performed By: #### C BC #### [facility] [address] [place] [address] Dr. Jacqueline Mays PLT 320 103/ul Normal 150-450 [facility] Comment on above: Performed By: #### C BC #### [facility] [address] [place] [address] Dr. Jacqueline Mays RBC 4.98 106/ul Normal 4.20-5.40 [facility] Comment on above: Performed By: #### C BC #### [facility] [address] [place] [address] Dr. Jacqueline Mays WBC 8.4 103/ul Normal 4.0-11.0 [facility] Comment on above: Performed By: #### C BC #### [facility] [address] [place] [address] Dr. Jacqueline Mays CRPon 11-12-2021 CRP [Mass/Vol] mg/L Normal <=1.0 The [facility] Comment on above: Performed By: #### I NFLUAB #### [facility] [address] [place] [address] Dr. Jacqueline Mays LIPASEon 11-12-2021 Lipase [Catalytic activity/Vol] 204.0 U/L Normal 23.0-300.0 [facility] Comment on above: Performed By: #### I NFLUAB #### [facility] [address] [place] [address] Dr. Jacqueline Mays PROF 14(COMP METB)on 022 Albumin [Mass/Vol] 3.6 g/dL Normal 3.5-5.0 [facility] Comment on above: Performed By: #### I NFLUAB #### [facility] [address] [place] [address] Dr. Jacqueline Mays Albumin/Globulin [Mass ratio] 0.9 {ratio} Normal [facility] Comment on above: Performed By: #### I NFLUAB #### [facility] [address] [place] [address] Dr. Jacqueline Mays ALP [Catalytic activity/Vol] 72 U/L Normal 38-126 [facility] Comment on above: Performed By: #### I NFLUAB #### [facility] [address] [place] [address] Dr. Jacqueline Mays ALT [Catalytic activity/Vol] 47 U/L Normal 9-52 [facility] Comment on above: Performed By: #### I NFLUAB #### [facility] [address] [address] [address] Jacqueline Mays Anion gap [Moles/Vol] 13.9 mmol/L Normal [facility] Comment on above: Performed By: #### I NFLUAB #### [facility] [address] [address] [address] Jacqueline Mays AST [Catalytic activity/Vol] 38 U/L Critically high 14-36 [facility] Comment on above: Performed By: #### I NFLUAB #### [facility] [address] [address] [address] Jacqueline Mays Bilirubin [Mass/Vol] 0.9 mg/dL Normal 0.2-1.3 [facility] Comment on above: Performed By: #### I NFLUAB #### [facility] [address] [place] [address] Dr. Jacqueline Mays Calcium [Mass/Vol] 9.7 mg/dL Normal 8.4-10.2 [facility] Comment on above: Performed By: #### I NFLUAB #### [facility] [address] [address] [address] Jacqueline Mays Chloride [Moles/Vol] 102 mmol/L Normal 98-107 [facility] Comment on above: Performed By: #### I NFLUAB #### [facility] [address] [place] [address] Dr. Jacqueline Mays CO2 [Moles/Vol] 26.9 mmol/L Normal 22.0-30.0 [facility] Comment on above: Performed By: #### I NFLUAB #### [facility] [address] [address] [address] Jacqueline Mays Creatinine [Mass/Vol] 0.62 mg/dL Normal 0.52-1.04 [facility] Comment on above: Performed By: #### I NFLUAB #### [facility] [address] [address] [address] Jacqueline Mays EGFR-AF SAMOAN >60 Normal >=60 [facility] Comment on above: Performed By: #### I NFLUAB #### [facility] [address] [address] [address] Jacqueline Mays EGFR-NON AF SAMOAN >60 Normal >=60 [facility] Comment on above: Performed By: #### I NFLUAB #### [facility] [address] [address] [address] Jacqueline Mays Globulin (S) [Mass/Vol] 3.8 g/dL Normal [facility] Comment on above: Performed By: #### I NFLUAB #### [facility] [address] [address] [address] Jacqueline Mays Glucose [Mass/Vol] 109 mg/dL Critically high 74-106 [facility] Comment on above: Performed By: #### I NFLUAB #### [facility] [address] [place] [address] Dr. Jacqueline Mays Potassium [Moles/Vol] 3.8 mmol/L Normal 3.4-5.0 [facility] Comment on above: Performed By: #### I NFLUAB #### [facility] [address] [address] [address] Jacqueline Mays Protein [Mass/Vol] 7.4 g/dL Normal 6.1-8.2 [facility] Comment on above: Performed By: #### I NFLUAB #### [facility] [address] [place] [address] Dr. Jacqueline Mays Sodium [Moles/Vol] 139 mmol/L Normal 137-145 [facility] Comment on above: Performed By: #### I NFLUAB #### [facility] [address] [address] [address] Jacqueline Mays Urea nitrogen [Mass/Vol] 7.0 mg/dL Normal 7.0-17.0 [facility] Comment on above: Performed By: #### I NFLUAB #### [facility] [address] [address] [address] Jacqueline Mays Urea nitrogen/Creatinine [Mass ratio] 11.3 mg/mg Normal [facility] Comment on above: Performed By: #### I NFLUAB #### [facility] [address] [address] [address] Jacqueline Mays URIC ACID SERUMon 11-12-2021 Urate [Mass/Vol] 4.7 mg/dL Normal 2.5-6.2 [facility] Comment on above: Performed By: #### I NFLUAB #### [facility] [id number] Jacqueline Mays XR hip RT min 2V(w/wo pelvis )*on 06-25-2021 XR hip RT min 2V(w/wo pelvis)* [facility] Main [place] [address] [place] [address] XRay Report Signed Patient: Megha Mcdaniel MR#: [id number] 3 : 1970 Acct:[id number] Age/Sex: 51 / F ADM Date: 06/25/21 Loc: ER Room: Type: [facility] ER Attending Dr: Ordering Provider: Jose Priest PA-C Date of Service: 06/25/21 XR/XR hip RT min 2V(w/wo pelvis)*: Extremity Injury, Lower Copies to: Jose Priest PA-C XR hip RT min 2V(w/wo pelvis)* 06/25/2021 7:52 PM SIGNS AND SYMPTOMS: Right hip pain for one week. Posterior low back pain radiating laterally PROTOCOL: Frontal radiograph the pelvis with frontal and frog-leg views of the right hip COMPARISON: None FINDINGS: Disc height loss is noted in the lower lumbar spine. The sacral iliac joints are preserved. The joint spaces of the hips are preserved. There is no evidence of fracture or dislocation. There are a few vascular calcifications in the pelvis. XR/XR hip RT min 2V(w/wo pelvis)* IMPRESSION: No fracture or dislocation. Mild degenerative changes are noted in the lower lumbar spine. Impression dictated by: Fausto Negro M.D.06/25/2021 8:24 PM Dictation Location: [place] [address] Transcribed By: [facility] 06/25/212023 Dictated By: Fausto Negro II, MD 06/25/212020 Signed By: 06/25/212023 Normal [facility] Vital Signs Date Time Vital Sign Value Performing Clinician Chepe wright 04-30-2022 11:55-0400 Diastolic blood pressure 70 mm[Hg] MD Kelly Jo Work Phone: [facility] 04-30-2022 11:55-0400 Heart rate 70 /min MD Kelly Jo Work Phone: [facility] 04-30-2022 11:55-0400 Respiratory rate 18 /min MD Kelly Jo Work Phone: [facility] 04-30-2022 11:55-0400 SaO2% (BldA) [Mass fraction] 98 % MD Kelly Jo Work Phone: [facility] 04-30-2022 11:55-0400 Systolic blood pressure 152 mm[Hg] MD Kelly Jo Work Phone: [facility] 04-30-2022 07:53-0400 Body height 162.56 cm MD Kelly Jo Work Phone: [facility] 04-30-2022 07:53-0400 Body mass index (BMI) [Ratio] 24.5 kg/m2 MD Kelly Jo Work Phone: [facility] 04-30-2022 07:53-0400 Body weight 65 kg MD Kelly Jo Work Phone: [facility] 04-30-2022 07:51-0400 Body temperature 97.9 [degF] MD Kelly Jo Work Phone: [facility] Encounters Encounter Date Encounter Type Care Provider Facility Start: 10-12-[address] KELLY JO Facility :[facility] Start: 04-30-[address] KELLY JO Facility :[facility] Start: 04-30-2022 End: 04-30-2022 Emergency department patient visit MD Kelly Jo Work Phone: [facility] Start: 03-24-2022 End: 03-25-[address] KELLY JO Facility:[facility] Start: 02-22-2022 End: 02-22-[address] KELLY JO Facility:[facility] Start: 01-12-[address] KELLY JO Facility :[facility] Start: 11-12-2021 End: 11-13-[address] KELLY JO Facility:[facility] Start: 07-01-2018 End: 07-02-2018 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 Facility:[facility] Procedures Date Procedure Procedure Detail Performing Clinician Start: 04-30-2022 Computed tomography of abdomen and pelvis with contrast MD Kelly Jo Work Phone: Plan of Treatment Date Care Activity Detail Author Patient Education Colitis (DC) A bdominal Pain, Adult ED [facility] Work Phone: Patient referral [facility] Work Phone: Payers Date Payer Category Payer Unknown [id number] 2.16.84 [id number] 1970 Unknown [id number] 2.16.84 [id number] 1970 Unknown [id number] 2.16.84 [id number] 1970 Unknown [id number] 2.16.84 [id number] 1972 Unknown [id number] 2.16.84 [id number] 1970 Unknown [id number] 2.16.84 [id number] 1970 Unknown [id number] 2.16.84 [id number] 1957 Private Health Insurance [id number] 1957 Self-pay [id number] Medicaid [employer] [id number] Self-pay Self Pay [id number] Unknown Social History Date Type Detail Facility Start: 04-30-2022 Tobacco smoking stat us NHIS Smoker (finding) [facility] Start: 1970 Sex Assigned At Female F [facility] Evaluation note Note Date & Type Note Facility Evaluation note No assessment information availa ble [facility] Work Phone: Summary Purpose Family History No Family History Records FoundNo Family History Records FoundNo Family History Records FoundNo Family History Records Found Advance Directives No Advanced Directives Records Found Advance Directive Response Recorded Date/ Time Advance Directives No June 25, 2021 7:58pm Chief Complaint and Reason for Visit Chief Complaint vomiting, diarrhea Additional Source Comments INFORMATION SOURCE (unrecogn ized section and content) DATE CREATED AUTHOR 07/03/2018 [facility] DATE CREATED AUTHOR AUTHOR'S ORGANIZ ATION 05/15/2022 [facility] DATE CREATED AUTHOR AUTHOR'S ORGANIZ ATION 10/12/2022 [facility] DATE CREATED AUTHOR AUTHOR'S ORGANIZ ATION 08/12/2023 [facility] Care Teams (unrecognized sec tion and content) Team Status: Inactive Member Role Status Dates Kelly Jo MD Primary Care Provider Active Michael Avila DO Emergency Provider Active Team Status: Active Member Role Status Dates Kelly Jo MD Primary Care Provider Active Goals (unrecognized section and content) Goals may be documented in a n alternate section FOR RECORDS PERTAINING TO PATIENTS WHO ARE OR HAVE BEEN ENROLLED IN A CHEMICAL DEPENDENCY/SUBSTANCEABUSE PROGRAM, SOME INFORMATION MAY BE OMITTED. This clinical summary was aggregated from multiple sources. Caution should be exercised in using it in the provision of clinical care. This summary normalizes information from multiple sources, and as a consequence, information in this document may materially change the coding, format and clinical context of patient data. In addition, data may be omitted in some cases. CLINICAL DECISIONS SHOULD BE BASED ON THE PRIMARY CLINICAL RECORDS. [employer] [facility]. provides no warranty or guarantee of the accuracy or completeness of information in this document.
== END 2023-11-17 09:33 | disposition home or self-care (01) ==
LOC: CT 09:32
PROVIDERS: PCP Family Medicine; Visit Provider Family Medicine
DX: M50.90 Cervical disc disorder, unspecified, unspecified cervical region (principal)
CPT/HCPCS: 72125

== ENCOUNTER 2024-10-04 07:42 | Outpatient (OUT) | payer OTHER, SELFPAY ==
--- NOTE | 2024-10-04 08:04 | XR_ITS ---
The [address] [address] Patient Name: MEGHA MCDANIEL MRN: [id number] date: 1970 Sex: F Assigned Patient Location: LAB Current Patient Location: LAB Accession/Order Number: [id number] Exam Date: 10/04/2024 08:20 Report Date: 10/07/2024 09:20 At the request of: KELLY SHAH Procedure: XR acute abdomen series EXAMINATION: XR acute abdomen series HISTORY: Abdominal Pain ; bloating COMPARISON: No relevant comparison available. FINDINGS: LUNGS: No infiltrate, pneumothorax, or pleural effusion. MEDIASTINUM: Prior sternotomy. No abnormal widening. BOWEL GAS PATTERN: No abnormal dilation or suspicious fluid levels. FREE AIR: None. CALCIFICATIONS: None significant. BONES: No fracture or visible bone lesion. OTHER: Negative. XR/XR acute abdomen series IMPRESSION: 1. No acute cardiopulmonary process. 2. No acute or suspicious findings of the abdomen or pelvis. Electronically authenticated by: INGRIS MONDRAGON Date: 10/07/2024 09:20
--- NOTE | 2024-10-04 08:04 | XR_ITS ---
The [address] [address] Patient Name: MEGHA MCDANIEL MRN: [id number] date: 1970 Sex: F Assigned Patient Location: LAB Current Patient Location: Accession/Order Number: [id number] Exam Date: 10/04/2024 08:20 Report Date: 10/07/2024 09:17 At the request of: KELLY SHAH Procedure: XR lumbar spine min 4V EXAMINATION: XR lumbar spine min 4V HISTORY: Pelvic Pain ; lumbar pain, low back pain without injury COMPARISON: CT abdomen pelvis 06/05/2023 FINDINGS: BONES: Moderate-marked degenerative facet arthropathy L2-L3 through L5-S1. Normal height and alignment of the vertebral bodies; no appreciable fracture. DISC SPACES: Mild/moderate narrowing L2-L3, L3 on 4. Mild narrowing L5-S1. PARASPINOUS: Negative. No paraspinous abnormality is seen. OTHER: Negative. XR/XR lumbar spine min 4V IMPRESSION: 1. Moderate-marked degenerative disc disease L3-L4 likely resulting in central canal and foraminal stenosis. Altered level mild to moderate degenerative changes. Findings appear slightly progressed compared to 06/05/2023 CT study (allowing for differences in technique). Electronically authenticated by: INGRIS MONDRAGON Date: 10/07/2024 09:17
--- OUTSIDE RECORDS SUMMARY | 2024-10-04 08:08 | XMS_ITS | CCD ---
Author Organization [facility] Inform ion Partnership [facility] Care Team Providers Care Aircraft Ordnance Technician Name Role Phone PHYSICIAN, DEFAULT Unavailable Unavailable PHYSICIAN, DEFAULT Unavailable Unavailable KELLY JO Unavailable Unavailable MD Kelly Jo Primary Care Provider [phone] DO Michael Avila Emergency Provider [phone] ALYSSA, DR MENDOZA Primary Care Unavailable PAY, DR COELHO Attending [...] DR INGRIS Burk Consulting Unavailable ALYSSA, DR MENDOZA Primary Care Unavailable ALYSSA, DR MENDOZA Consulting Unavailable DEBBIY, DR MENDOZA Attending Unavailable DEBBIY, DR MENDOZA Admitting Unavailable ALYSSA, DR MENDOZA Primary Care Unavailable ALYSSA, DR MENDOZA Attending Unavailable ALYSSA, DR MENDOZA Admitting Unavailable ALYSSA, DR MENDOZA Primary Care Unavailable ALYSSA, DR MENDOZA Attending Unavailable DEBBIY, DR MENDOZA Admitting Unavailable ALYSSA, DR MENDOZA Primary Care Unavailable ALYSSA, DR MENDOZA Attending Unavailable ALYSSA, DR MENDOZA Admitting Unavailable Kelly Jo MD Primary Care Provider CLEM MARCH Attending Unavailable KELLY JO Referring Unavailable KELLY JO Primary Care Unavailable Allergies Allergy Classification Reported Allergen(s) Allergy Type Date of Onset Reaction(s) Facility (1 source) 96733,00 Drug allergy (disorder) 09-18-2009 [facility] Repository Medications Current Medications Medication Drug Class(es) Dates Sig (Normalized) Sig (Original) amoxicillin 500 mg oral capsule (1 source) Penicillin-class Antibacterial take 2 capsules by mouth in the morning amoxicillin (AMOXIL) 500 mg capsule Take 1,000 mg by mouth in the morning and 1,000 mg before bedtime. 0 Active cetirizine hydrochloride 10 mg oral tablet (2 sources) Histamine-1 Receptor Antagonist Start: 04-27-2022 take 2 tablets by mouth in the morning cetirizine (ZyrTEC) 10 mg tablet Take 20 mg by mouth in the morning. 0 04/27/2022 Active Start: 06-25-2021 take 20 mg by mouth once daily Cetirizine Active 20 MG PO Daily June 25, 2021 7:44pm famotidine 40 mg oral tablet (1 source) Histamine-2 Receptor Antagonist Start: 04-27-2022 take 1 tablet by mouth in the morning famotidine (PEPCID) 40 mg tablet Take 40 mg by mouth in the morning and 40 mg before bedtime. 0 04/27/2022 Active fluticasone propionate 0.05 mg/actuat metered dose nasal spray (1 source) Corticosteroid Start: 04-27-2022 take 1 spray(s) nasal route three times daily fluticasone propionate (FLONASE) 50 mcg/actuation nasal spray Administer 1 spray into each nostril 3 (three) times a day. 0 04/27/2022 Active hydrOXYzine hydrochloride 25 mg oral tablet (1 source) Antihistamine Start: 04-30-2022 take 25 mg by mouth every six hours Hydroxyzine Hcl Active 25 MG PO Q6H April 30, 2022 11:38am ibuprofen 800 mg oral tablet (2 sources) Nonsteroidal Anti-inflammatory Drug Start: 06-25-2021 take 1 tablet by mouth in the morning ibuprofen (MOTRIN) 800 mg tablet Take 800 mg by mouth in the morning. 0 04/27/2022 Active levothyroxine sodium 0.125 mg oral tablet (2 sources) l-Thyroxine Start: 06-25-2021 take 1 tablet by mouth in the morning levothyroxine (SYNTHROID, LEVOTHROID) 125 MCG tablet Take 125 mcg by mouth in the morning. 0 04/27/2022 Active methylPREDNISolone 4 mg oral tablet (2 sources) Corticosteroid Start: 06-25-2021 End: 04-30-2022 take 1 tablet by mouth once Methylprednisolone (Medrol (Herb)) 4 mg tablets,dose pack Active 0 PO .COMPLEX April 30, 2022 11:24am orally per package directions multivitamin capsule (1 source) take 1 capsule by mouth in the morning multivitamin capsule Take 1 capsule by mouth in the morning. 0 Active ondansetron 4 mg disintegrating oral tablet (2 sources) Serotonin-3 Receptor Antagonist Start: 04-30-2022 ondansetron ODT (ZOFRAN ODT) 4 mg disintegrating tablet Dissolve 4 mg on tongue as needed. 0 04/30/2022 Active Completed/Discontinued Medications Medication Drug Class(es) Dates Sig [...] Problem Classification Problem Date Documented Date Episodic/Chronic Abdominal hernia (1 source) Diaphragmatic hernia without obstruction or gangrene; Translations: [Diaphragmatic hernia without obstruction or gangrene] Onset: 01-11-2024 Episodic Alcohol-related disorders (1 source) Alcohol dependence, uncomplicated; Translations: [ALCOHOL DEPENDENCE UNCOMPLICATED] Onset: 02-24-2022 Chronic Anxiety disorders (1 source) Anxiety disorder, unspecified; Translations: [ANXIETY DISORDER UNSPECIFIED] Onset: 02-24-2022 Chronic Disorders usually diagnosed in infancy, childhood, or adolescence (1 source) Other specified behavioral and emotional disorders with onset usually occurring in childhood and adolescence; Translations: [OTH BEHAVR EMOTIONAL D/O CHILD ADOL] Onset: 02-24-2022 Chronic Hemorrhoids (2 sources) Unspecified hemorrhoids; Translations: [Hemorrhoids] Onset: 01-11-2024 Episodic Nausea and vomiting (5 sources) Vomiting, unspecified; Translations: [Nausea with vomiting, unspecified] Onset: 02-22-2022 Episodic Noninfectious gastroenteritis (1 source) Colitis; Translations: [Noninfective [...] [CONTACT W/AND (SUSP) EXPOS COVID-19] Onset: 02-24-2022 Unclassified (1 source) EGD Onset: 01-11-2024 Past or Other Problems Problem Classification Problem [...] fatigue; Translations: [OTHER FATIGUE] Onset: 11-19-2021 Episodic Nonspecific chest pain (1 source) Other chest pain; Translations: [OTHER CHEST PAIN] Onset: 03-27-2022 Episodic Other aftercare (1 source) Other longterm (current) drug therapy; Translations: [OTH FDC CURRENT DRUG THERAPY] Onset: 02-24-2022 Episodic Other [...] 08-05-2023 Provider Letter August 05, [address] [place] [address] [place] [address] : 1970 Dear Megha, We have been trying to reach you with no success. It is important that you return our call upon receiving this letter. Also, at the time of your call, please provide us with your current information. Thank you for your prompt attention to this matter. Sincerely, Dr. Roiht Delacruz MD General Surgery Normal [facility] ED Note-Physicianon 07-16-20 ED Note-Physician [id number] .[id number]:[address] [facility] Physician Referralon 023 Physician Referral [id number]. [id number]:[address] [facility] RAD - CT Reporton 07-16-2023 RAD - CT Report [id number]. 00CD:[address] [facility] Physician Referralon 023 Physician Referral [id number]. 00CD:[address] [facility] Albumin [Mass/volume] in Ser um or PlasmaOrdered By: Michael Avila on 04-30-2022 Albumin [Mass/Vol] 3.4 g/dL 3.2-5.5 [facility] Automated erythrocytes count in urine sediment (number/area)Ordered By: Michael Avila on 04-30-2022 RBC Auto (Urine sed) [#/Area] 3-4 [HPF] [facility] Automated leukocytes count i n urine sediment (number/area)Ordered By: Michael Avila on 04-30-2022 WBC Auto (Urine sed) [#/Area] 3-4 [HPF] [facility] Basic Metabolic Panelon 04-09 Calcium [Mass/Vol] 9.0 mg/dL Normal 8.2-10.2 [facility] Comment on above: Performed By: #### C BC, BMP, LIPASE, TSH3, HEPATIC #### [address] Chloride [Moles/Vol] 99 mmol/L Normal 95-114 [facility] Comment on above: Performed By: #### C BC, BMP, LIPASE, TSH3, HEPATIC #### [facility] [address] CO2 [Moles/Vol] 22.8 mmol/L Normal 22.0-30.0 [facility] Comment on above: Performed By: #### C BC, BMP, LIPASE, TSH3, HEPATIC #### [facility] [address] Creatinine [Mass/Vol] 0.85 mg/dL Normal 0.44-1.03 [facility] Comment on above: Performed By: #### C BC, BMP, LIPASE, TSH3, HEPATIC #### [address] Creatinine Clr Calc Pharmacy 68.37 [facility] Comment on above: Performed By: #### C BC, BMP, LIPASE, TSH3, HEPATIC #### [address] Estimated GFR ( Esther > 60 [facility] Comment on above: Result Comment: GFR estimated reference range: According to KDOQI guidelines, <60 ml/min/1.73m2 is sufficient to diagnose a patient with chronic kidney disease. Performed By: #### C BC, BMP, LIPASE, TSH3, HEPATIC #### [address] Estimated GFR (Non- Am > 60 [facility] Comment on above: Performed By: #### C BC, BMP, LIPASE, TSH3, HEPATIC #### [address] Glucose [Mass/Vol] 114 mg/dL High 70-100 [facility] Comment on above: Result Comment: [facility] Glucose Reference Range is dependent on time and content of last meal. Glucose of more than 200 mg/dL in a nonstressed, ambulatory subject supports the diagnosis of Diabetes Mellitus. ADA recommended reference range Performed By: #### C BC, BMP, LIPASE, TSH3, HEPATIC #### [place] [id number] [place] Potassium [Moles/Vol] 3.7 mmol/L Normal 3.5-5.1 [facility] Comment on above: Performed By: #### C BC, BMP, LIPASE, TSH3, HEPATIC #### [facility] [address] Sodium [Moles/Vol] 136 mmol/L Normal 136-146 [facility] Comment on above: Performed By: #### C BC, BMP, LIPASE, TSH3, HEPATIC #### [facility] [address] Urea nitrogen [Mass/Vol] 7 mg/dL Low 07-31 [facility] Comment on above: Performed By: #### C BC, BMP, LIPASE, TSH3, HEPATIC #### [address] Basophils Auto (Bld) [#/Vol] Ordered By: Michael Avila on 04-30-2022 Basophils (Bld) [#/Vol] 0.0 10*3/uL 0.0-0.2 [facility] Basophils/100 WBC Auto (Bld) Ordered By: Michael Avila on 04-30-2022 Basophils/100 WBC (Bld) 0.5 % [facility] Bilirubin Test strip Ql (U)O rdered By: Michael Avila on 04-30-2022 Bilirubin Ql (U) Negative Negative [facility] Blood hemoglobin measurement (mass/volume)Ordered By: Michael Avila on 04-30-2022 Hemoglobin (Bld) [Mass/Vol] 15.4 g/dL 11.8-15.4 [facility] Blood leukocytes automated c ount (number/volume)Ordered By: Michael Avila on 04-30-2022 WBC (Bld) [#/Vol] 7.1 10*3/uL 4.5-11.[address] [facility] [address] abdomen pelvis w conon CT abdomen pelvis w [facility] [place] [address] CT Scan Report Signed Patient: Megha Mcdaniel MR#: [id number] 3 : 1970 Acct:[id number] Age/Sex: 52 / F ADM Date: 04/30/22 Loc: ER Room: Type: [facility] ER Attending Dr: Copies to: Michael Avila [...] Shailesh Jesus M.D.04/30/2022 9:41 AM Dictation Location: [place] [address] Transcribed By: [facility] 04/30/22 0941 Dictated By: Shailesh Jesus DO 04/30/22 0932 Signed By: 04/30/22 0941 Normal [facility] Color Auto (U)Ordered By: Dominick Avila on 04-30-2022 Color (U) Dark yellow Yellow [facility] Complete Blood Count Auto Di ffon 04-30-2022 Basophils (Bld) [#/Vol] 0.0 10*3/uL Normal 0.0-0.2 [facility] Comment on above: Result Comment: PERF ORMED BY: [place] [address] PATHOLOGIST BULK TRUCK DRIVER YANETH CEDILLO M.D. Performed By: #### C BC, BMP, LIPASE, TSH3, HEPATIC #### [address] Basophils/100 WBC (Bld) 0.5 % Normal . [facility] Comment on above: Performed By: #### C BC, BMP, LIPASE, TSH3, HEPATIC #### [address] Eosinophils (Bld) [#/Vol] 0.1 10*3/uL Normal 0.0-0.45 [facility] Comment on above: Performed By: #### C BC, BMP, LIPASE, TSH3, HEPATIC #### [address] Eosinophils/100 WBC (Bld) 1.9 % Normal . [facility] Comment on above: Performed By: #### C BC, BMP, LIPASE, TSH3, HEPATIC #### [address] Erythrocyte distribution width (RBC) [Ratio] 15.3 % Normal 11.9-15.3 [facility] Comment on above: Performed By: #### C BC, BMP, LIPASE, TSH3, HEPATIC #### [address] Hematocrit (Bld) [Volume fraction] 44.8 % Normal 34.0-46.4 [facility] Comment on above: Performed By: #### C BC, BMP, LIPASE, TSH3, HEPATIC #### [address] Hemoglobin (Bld) [Mass/Vol] 15.4 g/dL Normal 11.8-15.4 [facility] Comment on above: Performed By: #### C BC, BMP, LIPASE, TSH3, HEPATIC #### [address] Lymphocytes (Bld) [#/Vol] 1.5 10*3/uL Normal 1.00-4.8 [facility] Comment on above: Performed By: #### C BC, BMP, LIPASE, TSH3, HEPATIC #### [address] Lymphocytes/100 WBC (Bld) 21.1 % Normal . [facility] Comment on above: Performed By: #### C BC, BMP, LIPASE, TSH3, HEPATIC #### [address] MCH (RBC) [Entitic mass] 34.6 pg High 24.7-34.3 [facility] Comment on above: Performed By: #### C BC, BMP, LIPASE, TSH3, HEPATIC #### [address] MCV (RBC) [Entitic vol] 100.6 fL High 80-100 [facility] Comment on above: Performed By: #### C BC, BMP, LIPASE, TSH3, HEPATIC #### [address] Mean Corpuscular HGB Conc 34.4 g/dL Normal 32.0-35.0 [facility] Comment on above: Performed By: #### C BC, BMP, LIPASE, TSH3, HEPATIC #### [address] Monocytes (Bld) [#/Vol] 0.7 10*3/uL Normal 0.0-0.8 [facility] Comment on above: Performed By: #### C BC, BMP, LIPASE, TSH3, HEPATIC #### [address] Monocytes/100 WBC (Bld) 9.5 % Normal . [facility] Comment on above: Performed By: #### C BC, BMP, LIPASE, TSH3, HEPATIC #### [address] Neutrophils (Bld) [#/Vol] 4.8 10*3/uL Normal 1.8-7.7 [facility] Comment on above: Performed By: #### C BC, BMP, LIPASE, TSH3, HEPATIC #### [address] Neutrophils/100 WBC (Bld) 67.0 % Normal . [facility] Comment on above: Performed By: #### C BC, BMP, LIPASE, TSH3, HEPATIC #### [address] Nucleated RBC/100 WBC (Bld) [Ratio] 0.0 % Normal 0-0.5 [facility] Comment on above: Performed By: #### C BC, BMP, LIPASE, TSH3, HEPATIC #### [address] Platelet mean volume (Bld) [Entitic vol] 8.0 fL Normal 6.3-10.7 [facility] Comment on above: Performed By: #### C BC, BMP, LIPASE, TSH3, HEPATIC #### [address] Platelets (Bld) [#/Vol] 336 10*3/uL Normal 150-450 [facility] Comment on above: Performed By: #### C BC, BMP, LIPASE, TSH3, HEPATIC #### [address] RBC (Bld) [#/Vol] 4.46 10*6/uL Normal 3.60-5.00 [facility] Comment on above: Performed By: #### C BC, BMP, LIPASE, TSH3, HEPATIC #### [address] WBC (Bld) [#/Vol] 7.1 10*3/uL Normal 4.5-11.0 [facility] Comment on above: Performed By: #### C BC, BMP, LIPASE, TSH3, HEPATIC #### [address] Creatinine and Glomerular fi ltration rate.predicted panel (S/P/Bld)Ordered By: Michael Avila on 04-30-2022 Creatinine [Mass/Vol] 0.85 mg/dL 0.44-1.03 [facility] Dipstick and Microscopicon 0 04-30-2022 Appearance (U) Clear Normal Clear [facility] Comment on above: Order Comment: Name Collection Type:: Clean-Voided Midstream Performed By: #### A DDONUAPLUS, UHCG #### [facility] [address] Bacteria,Urine None Seen Normal None Seen [facility] Comment on above: Order Comment: Name Collection Type:: Clean-Voided Midstream Performed By: #### A DDONUAPLUS, UHCG #### [place] [address] [place] Bilirubin,Urine Negative Normal Negative [facility] Comment on above: Order Comment: Name Collection Type:: Clean-Voided Midstream Performed By: #### A DDONUAPLUS, UHCG #### [place] [address] [place] Color (U) Dark Yellow Critically abnormal Yellow [facility] Comment on above: Order Comment: Name Collection Type:: Clean-Voided Midstream Performed By: #### A DDONUAPLUS, UHCG #### [address] Glucose Ql (U) Normal Normal Normal [facility] Comment on above: Order Comment: Name Collection Type:: Clean-Voided Midstream Performed By: #### A DDONUAPLUS, UHCG #### [facility] [address] [place] [address] [place] Hyaline Casts,Urine 9-19 High 0-8 [facility] Comment on above: Order Comment: Name Collection Type:: Clean-Voided Midstream Performed By: #### A DDONUAPLUS, UHCG #### [place] [address] [place] Ketones Ql (U) Negative Normal Negative [facility] Comment on above: Order Comment: Name Collection Type:: Clean-Voided Midstream Performed By: #### A DDONUAPLUS, UHCG #### [address] [address] [place] Leukocyte esterase Test strip Ql (U) Negative Normal Negative [facility] Comment on above: Order Comment: Name Collection Type:: Clean-Voided Midstream Performed By: #### A DDONUAPLUS, UHCG #### [facility] [address] [place] [address] [place] Nitrite,Urine Negative Normal Negative [facility] Comment on above: Order Comment: Name Collection Type:: Clean-Voided Midstream Performed By: #### A DDONUAPLUS, UHCG #### [address] Occult Blood,Urine Negative Normal Negative [facility] Comment on above: Order Comment: Name Collection Type:: Clean-Voided Midstream Performed By: #### A DDONUAPLUS, UHCG #### [address] pH (U) 6.5 [pH] Normal 5.0-9.0 [facility] Comment on above: Order Comment: Name Collection Type:: Clean-Voided Midstream Performed By: #### A DDONUAPLUS, UHCG #### [facility] [address] [place] [address] Protein (U) [Mass/Vol] 30 mg/dL High Negative [facility] Comment on above: Order Comment: Name Collection Type:: Clean-Voided Midstream Performed By: #### A DDONUAPLUS, UHCG #### [facility] [address] [place] [address] [place] RBC,Urine 3-4 Normal 0-4 [facility] Comment on above: Order Comment: Name Collection Type:: Clean-Voided Midstream Performed By: #### A DDONUAPLUS, UHCG #### [facility] [address] [place] [address] [place] Renal Epithelial Cells,Urine None Seen Normal 0-1 [facility] Comment on above: Order Comment: Name Collection Type:: Clean-Voided Midstream Performed By: #### A DDONUAPLUS, UHCG #### [address] [place] [address] [place] Specificy [place],Urine 1.021 Normal 1.001-1.030 [facility] Comment on above: Order Comment: Name Collection Type:: Clean-Voided Midstream Performed By: #### A DDONUAPLUS, UHCG #### [facility] [address] Squamous Epithelial Cell,Urine 3-4 High 0-2 [facility] Comment on above: Order Comment: Name Collection Type:: Clean-Voided Midstream Performed By: #### A DDONUAPLUS, UHCG #### [address] Urobilinogen,Urine Normal Normal Normal [facility] Comment on above: Order Comment: Name Collection Type:: Clean-Voided Midstream Performed By: #### A DDONUAPLUS, UHCG #### [address] WBC,Urine 3-4 Normal 0-4 [facility] Comment on above: Order Comment: Name Collection Type:: Clean-Voided Midstream Performed By: #### A DDONUAPLUS, UHCG #### [address] Direct bilirubin measurement Ordered By: Michael Avila on 04-30-2022 Bilirubin.direct [Mass/Vol] 0.4 mg/dL 0.0-0.4 [facility] Eosinophils Auto (Bld) [#/Vo l]Ordered By: Michael Avila on 04-30-2022 Eosinophils (Bld) [#/Vol] 0.1 10*3/uL 0.0-0.45 [facility] Eosinophils/100 WBC Auto (Bl d)Ordered By: Michael Avila on 04-30-2022 Eosinophils/100 WBC (Bld) 1.9 % [facility] Erythrocyte distribution wid th Auto (RBC) [Ratio]Ordered By: Michael Avila on 04-30-2022 Erythrocyte distribution width (RBC) [Ratio] 15.3 % 11.9-15.3 [facility] Estimated glomerular filtrat ion rate (GFR) non- AmericanOrdered By: Michael Avila on 04-30-2022 GFR/1.73 sq M.predicted among non-blacks MDRD (S/P/Bld) [Vol rate/Area] > 60 mL/Min [facility] Globulin Calc (S) [Mass/Vol] Ordered By: Michael Avila on 04-30-2022 Globulin (S) [Mass/Vol] 3.2 g/dL [facility] HCG ( test) IA.rapi d Ql (U)Ordered By: Michael Avila on 04-30-2022 HCG ( test) Ql (U) Negative [facility] HCG,Urineon 04-30-2022 Beta HCG ( test) Ql (U) Negative Normal [facility] Comment on above: Order Comment: Name Collection Type:: Clean-Voided Midstream Result Comment: PERF ORMED BY: [place] [address] PATHOLOGIST BULK TRUCK DRIVER YANETH CEDILLO M.D. Performed By: #### A DDONUANETTIE, [facility] #### [address] Hematocrit Auto (Bld) [Volum e fraction]Ordered By: Michael Avila on 04-30-2022 Hematocrit (Bld) [Volume fraction] 44.8 % 34.0-46.4 [facility] Hepatic Panelon 04-30-2022 Albumin [Mass/Vol] 3.4 g/dL Normal 3.2-5.5 [facility] Comment on above: Performed By: #### C BC, BMP, LIPASE, TSH3, HEPATIC #### [facility] [address] [place] [address] Albumin/Globulin [Mass ratio] 1.1 {ratio} Normal [facility] Comment on above: Performed By: #### C BC, BMP, LIPASE, TSH3, HEPATIC #### [facility] [address] ALP [Catalytic activity/Vol] 111 U/L High 32-92 [facility] Comment on above: Performed By: #### C BC, BMP, LIPASE, TSH3, HEPATIC #### [facility] [address] [place] [id number] [place] ALT [Catalytic activity/Vol] 48 U/L Normal 10-60 [facility] Comment on above: Performed By: #### C BC, BMP, LIPASE, TSH3, HEPATIC #### [facility] [address] [place] [id number] [place] AST [Catalytic activity/Vol] 94 U/L High 10-42 [facility] Comment on above: Performed By: #### C BC, BMP, LIPASE, TSH3, HEPATIC #### [facility] [address] [place] [address] [place] Bilirubin [Mass/Vol] 1.7 mg/dL High 0.3-1.2 [facility] Comment on above: Result Comment: Samp les from patients who have taken Naproxen have shown spurious elevation in Total Bilirubin levels. A metabolite of Naproxen, O-desmethylnaproxen, has been shown to interfere with the Jendrassik-Grof method for measuring Total Bilirubin. Performed By: #### C BC, BMP, LIPASE, TSH3, HEPATIC #### [facility] [address] Bilirubin,Indirect 1.3 mg/dL Normal [facility] Comment on above: Performed By: #### C BC, BMP, LIPASE, TSH3, HEPATIC #### [facility] [address] [place] [address] [place] Bilirubin.indirect [Mass/Vol] 0.4 mg/dL Normal 0.0-0.4 [facility] Comment on above: Performed By: #### C BC, BMP, LIPASE, TSH3, HEPATIC #### [facility] [address] [place] [address] [place] Globulin (S) [Mass/Vol] 3.2 g/dL Normal [facility] Comment on above: Performed By: #### C BC, BMP, LIPASE, TSH3, HEPATIC #### [facility] [address] Protein [Mass/Vol] 6.6 g/dL Normal 6.1-7.9 [facility] Comment on above: Result Comment: Spec imen lipemic. Specimen Ultracentrifuged before testing. Performed By: #### C BC, BMP, LIPASE, TSH3, HEPATIC #### [facility] [facility] [address] [place] [address] [place] Ketones Auto test strip (U) [Mass/Vol]Ordered By: Michael Avila on 04-30-2022 Ketones (U) [Mass/Vol] Negative Negative [facility] - Chemistry and C hemistry - challengeOrdered By: Michael Avila on 04-30-2022 Lipase [Catalytic activity/Vol] 24.0 U/L [facility] Comment on above: Specimen lipemic. Specimen Ultracentrifuged before testing. Laboratory - Hematology and Cell countsOrdered By: Michael Avila on 04-30-2022 Nucleated RBC/100 WBC (Bld) [Ratio] 0.0 % 0-0.5 [facility] Laboratory - UrinalysisOrder ed By: Michael Avila on 04-30-2022 Hyaline casts LM Ql (Urine sed) 9-19 [LPF] [facility] Lipaseon 04-30-2022 Lipase [Catalytic activity/Vol] 24.0 U/L Normal [facility] Comment on above: Result Comment: Spec imen lipemic. Specimen Ultracentrifuged before testing. Performed By: #### C BC, BMP, LIPASE, TSH3, HEPATIC #### [facility] [address] Lymphocytes Auto (Bld) [#/Vo l]Ordered By: Michael Avila on 04-30-2022 Lymphocytes (Bld) [#/Vol] 1.5 10*3/uL 1.00-4.8 [facility] Lymphocytes/100 WBC Auto (Bl d)Ordered By: Michael Avila on 04-30-2022 Lymphocytes/100 WBC (Bld) 21.1 % [facility] MCH Auto (RBC) [Entitic mass ]Ordered By: Michael Avila on 04-30-2022 MCH (RBC) [Entitic mass] 34.6 pg 24.7-34.3 [facility] MCHC Auto (RBC) [Mass/Vol]Or dered By: Michael Avila on 04-30-2022 MCHC (RBC) [Mass/Vol] 34.4 g/dL 32.0-35.0 [facility] MCV Auto (RBC) [Entitic vol] Ordered By: Michael Avila on 04-30-2022 MCV (RBC) [Entitic vol] 100.6 fL 80-100 [facility] Monocytes Auto (Bld) [#/Vol] Ordered By: Michael Avila on 04-30-2022 Monocytes (Bld) [#/Vol] 0.7 10*3/uL 0.0-0.8 [facility] Monocytes/100 WBC Auto (Bld) Ordered By: Michael Avila on 04-30-2022 Monocytes/100 WBC (Bld) 9.5 % [facility] Neutrophils Auto (Bld) [#/Vo l]Ordered By: Michael Avila on 04-30-2022 Neutrophils (Bld) [#/Vol] 4.8 10*3/uL 1.8-7.7 [facility] Neutrophils/100 WBC Auto (Bl d)Ordered By: Michael Avila on 04-30-2022 Neutrophils/100 WBC (Bld) 67.0 % [facility] Nitrite Test strip Ql (U)Ord ered By: Michael Avila on 04-30-2022 Nitrite Ql (U) Negative Negative [facility] No Panel InformationOrdered By: Michael Avila on 04-30-2022 Estimated GFR () > 60 mL/Min [facility] Comment on above: GFR estimated refere nce range: According to KDOQI guidelines, <60 ml/min/1.73m2 is sufficient to diagnose a patient with chronic kidney disease. Pharmacy Creatinine Clearance (Chem 68.37 [facility] Platelet mean volume Auto (B ld) [Entitic vol]Ordered By: Michael Avila on 04-30-2022 Platelet mean volume (Bld) [Entitic vol] 8.0 fL 6.3-10.7 [facility] Platelets Auto (Bld) [#/Vol] Ordered By: Michael Avila on 04-30-2022 Platelets (Bld) [#/Vol] 336 10*3/uL 150-450 [facility] Protein Auto test strip (U) [Mass/Vol]Ordered By: Michael Avila on 04-30-2022 Protein (U) [Mass/Vol] 30 mg/dL Negative [facility] Protein [Mass/volume] in Ser um or PlasmaOrdered By: Michael Avila on 04-30-2022 Protein [Mass/Vol] 6.6 g/dL 6.1-7.9 [facility] Comment on above: Specimen lipemic. Specimen Ultracentrifuged before testing. RBC Auto (Bld) [#/Vol]Ordere d By: Michael Avila on 04-30-2022 RBC (Bld) [#/Vol] 4.46 10*6/uL 3.60-5.00 [facility] Serum or plasma alanine palacio otransferase measurement without P-5'-P (enzymatic activiOrdered By: Michael Avila on 04-30-2022 ALT No additional P-5'-P [Catalytic activity/Vol] 48 U/L 10-60 [facility] Serum or plasma albumin/glob ulin mass ratioOrdered By: Michael Avila on 04-30-2022 Albumin/Globulin [Mass ratio] 1.1 {ratio} [facility] Serum or plasma alkaline heena sphatase measurement (enzymatic activity/volume)Ordered By: Michael Avila on 04-30-2022 ALP [Catalytic activity/Vol] 111 U/L 32-92 [facility] Serum or plasma aspartate am inotransferase measurement (enzymatic activity/volume)Ordered By: Michael Avila on 04-30-2022 AST [Catalytic activity/Vol] 94 U/L 10-42 [facility] Serum or plasma calcium judy urement (mass/volume)Ordered By: Michael Avila on 04-30-2022 Calcium [Mass/Vol] 9.0 mg/dL 8.2-10.2 [facility] Serum or plasma chloride angeline surement (moles/volume)Ordered By: Michael Avila on 04-30-2022 Chloride [Moles/Vol] 99 mmol/L 95-114 [facility] Serum or plasma glucose judy urement (mass/volume)Ordered By: Michael Avila on 04-30-2022 Glucose [Mass/Vol] 114 mg/dL 70-100 [facility] Comment on above: ADA recommended refe rence range Random Glucose Reference Range is dependent on time and content of last meal. Glucose of more than 200 mg/dL in a nonstressed, ambulatory subject supports the diagnosis of Diabetes Mellitus. Serum or plasma non-glucuron idated bilirubin measurement (mass/volume)Ordered By: Michael Avila on 04-30-2022 Bilirubin.indirect [Mass/Vol] 1.3 mg/dL [facility] Serum or plasma potassium me asurement (moles/volume)Ordered By: Michael Avila on 04-30-2022 Potassium [Moles/Vol] 3.7 mmol/L 3.5-5.1 [facility] Serum or plasma sodium measu rement (moles/volume)Ordered By: Michael Avila on 04-30-2022 Sodium [Moles/Vol] 136 mmol/L 136-146 [facility] Serum or plasma total biliru bin measurement (mass/volume)Ordered By: Michael Avila on 04-30-2022 Bilirubin [Mass/Vol] 1.7 mg/dL 0.3-1.2 [facility] Comment on above: Samples from patient s who have taken Naproxen have shown spurious elevation in Total Bilirubin levels. A metabolite of Naproxen, O-desmethylnaproxen, has been shown to interfere with the Ifeanyi-Manjeet method for measuring Total Bilirubin. Serum or plasma total carbon dioxide measurement (moles/volume)Ordered By: Michael Avila on 04-30-2022 CO2 [Moles/Vol] 22.8 mmol/L 22.0-30.0 [facility] Serum or plasma urea nitroge n measurement (mass/volume)Ordered By: Michael Avila on 04-30-2022 Urea nitrogen [Mass/Vol] 7 mg/dL 07-31 [facility] Specific gravity Auto test s trip (U) [Rel density]Ordered By: Michael Avila on 04-30-2022 Specific gravity (U) [Rel density] 1.021 1.001-1.030 [facility] Squamous epithelial cells de tection in urine sediment by light microscopyOrdered By: Michael Avila on 04-30-2022 Epithelial cells.squamous LM Ql (Urine sed) 3-4 [HPF] [facility] TSH DL <= 0.005 mIU/L QnOrde red By: Michael Avila on 04-30-2022 TSH Qn 9.77 m[IU]/L 0.45-5.33 [facility] Thyroid Stimulating Hormoneo n 04-30-2022 TSH Qn 9.77 m[IU]/L High 0.45-5.33 [facility] Comment on above: Result Comment: PERF ORMED BY: [facility] [address] [place] [address] PATHOLOGIST [employer] YANETH CEDILLO M.D. Performed By: #### C BC, BMP, LIPASE, TSH3, HEPATIC #### [facility] [address] Urine bacteria detection by automated methodOrdered By: Michael Avila on 04-30-2022 Bacteria Auto Ql (U) None seen None Seen [facility] Urine clarity by refractomet ry automatedOrdered By: Michael Avila on 04-30-2022 Clarity Refractometry automated (U) Clear Clear [facility] Urine glucose measurement by automated test strip (mass/volume)Ordered By: Michael Avila on 04-30-2022 Glucose Auto test strip (U) [Mass/Vol] Normal mg/dL Normal [facility] Urine hemoglobin detection b y automated test stripOrdered By: Michael Avila on 04-30-2022 Hemoglobin Auto test strip Ql (U) Negative Negative [facility] Urine leukocyte esterase det ection by automated test stripOrdered By: Michael Avila on 04-30-2022 Leukocyte esterase Auto test strip Ql (U) Negative Negative [facility] Urine sediment renal epithel ial cell count by microscopy (number/high power field)Ordered By: Michael Avila on 04-30-2022 Epithelial cells.renal LM.HPF (Urine sed) [#/Area] None seen [HPF] [facility] Urobilinogen Auto test strip (U) [Mass/Vol]Ordered By: Michael Avila on 04-30-2022 Urobilinogen (U) [Mass/Vol] Normal mg/dL Normal [facility] pH Auto test strip (U)Ordere d By: Michael Avila on 04-30-2022 pH (U) 6.5 [pH] 5.0-9.0 [facility] XR CHEST 2 Von 03-24-2022 XR CHEST [...] INGRIS MONDRAGON Date: 2022-03-24 12:56 Normal [facility] AMMONIAon 02-22-2022 Ammonia (P) [Moles/Vol] 32 umol/L Normal 11-32 [facility] Comment on above: Performed By: #### C BC #### [facility] [address] [place] [address] Dr. Jacqueline Mays CBC AUTO DIFFon 02-22-2022 BASO # 0.1 103/ul Normal 0.0-0.1 [facility] [place] [facility] Comment on above: Performed By: #### C BC #### [facility] [address] [place] [address] Dr. Jacqueline Mays Basophils/100 WBC (Bld) 0.9 % Normal 0.2-2.0 [facility] [place] [facility] Comment on above: Performed By: #### C BC #### [facility] [address] [place] [address] Dr. Jacqueline Mays EO # 0.0 103/ul Normal 0.0-0.7 [facility] [place] [facility] Comment on above: Performed By: #### C BC #### [facility] [address] [address] [address] Jacqueline Mays Eosinophils/100 WBC (Bld) 0.8 % Critically low 0.9-7.0 [facility] Comment on above: Performed By: #### C BC #### [facility] [address] [place] [address] Dr. Jacqueline Mays Erythrocyte distribution width (RBC) [Ratio] 14.5 % Normal 11.0-15.0 [facility] [place] [facility] Comment on above: Performed By: #### C BC #### [facility] [address] [place] [address] Dr. Jacqueline Mays Hematocrit (Bld) [Volume fraction] 39.8 % Normal 36.0-48.0 [facility] [place] [facility] Comment on above: Performed By: #### C BC #### [facility] [address] [place] [address] Dr. Jacqueline Mays Hemoglobin (Bld) [Mass/Vol] 13.8 g/dL Normal 12.0-16.0 [facility] Comment on above: Performed By: #### C BC #### [facility] [address] [place] [address] Dr. Jacqueline Mays IG # 0.02 10e3/ul Normal 0.00-0.03 [facility] Comment on above: Performed By: #### C BC #### [facility] [address] [place] [address] Dr. Jacqueline Mays IG % 0.4 % Normal 0.0-0.5 [facility] Comment on above: Performed By: #### C BC #### [facility] [address] [place] [address] Dr. Jacqueline Mays LYMPH # 1.8 103/ul Normal 1.2-3.8 [facility] Comment on above: Performed By: #### C BC #### [facility] [address] [place] [address] Dr. Jacqueline Mays Lymphocytes/100 WBC (Bld) 33.0 % Normal 20.5-60.0 [facility] Comment on above: Performed By: #### C BC #### [facility] [address] [place] [address] Dr. Jacqueline Mays MANUAL DIFF REQ NO Normal [facility] Comment on above: Performed By: #### C BC #### [facility] [address] [place] [address] Dr. Jacqueline Mays MCH (RBC) [Entitic mass] 33.4 pg Normal 26.7-34.0 [facility] Comment on above: Performed By: #### C BC #### [facility] [address] [address] [address] Jacqueline Mays MCHC (RBC) [Mass/Vol] 34.7 g/dL Normal 29.9-35.2 [facility] Comment on above: Performed By: #### C BC #### [facility] [address] [place] [address] Dr. Jacqueline Mays MCV (RBC) [Entitic vol] 96.4 fL Normal 81.0-99.0 [facility] Comment on above: Performed By: #### C BC #### [facility] [address] [place] [address] Dr. Jacqueline Mays MONO # 0.4 103/ul Normal 0.3-0.8 [facility] Comment on above: Performed By: #### C BC #### [facility] [address] [place] [address] Dr. Jacqueline Mays Monocytes/100 WBC (Bld) 6.8 % Normal 1.7-12.0 [facility] Comment on above: Performed By: #### C BC #### [facility] [address] [place] [address] Dr. Jacqueline Mays NEUT # 3.1 103/ul Normal 1.4-6.5 [facility] Comment on above: Performed By: #### C BC #### [facility] [address] [place] [address] Dr. Jacqueline Mays Neutrophils/100 WBC (Bld) 58.1 % Normal 43.0-75.0 [facility] Comment on above: Performed By: #### C BC #### [facility] [address] [place] [address] Dr. Jacqueline Mays Platelet mean volume (Bld) [Entitic vol] 9.3 fL Critically low 9.5-13.5 [facility] Comment on above: Performed By: #### C BC #### [facility] [address] [place] [address] Dr. Jacqueline Mays PLT 296 103/ul Normal 150-450 [facility] Comment on above: Performed By: #### C BC #### [facility] [address] [address] [address] Jacqueline Mays RBC 4.13 106/ul Critically low 4.20-5.40 [facility] Comment on above: Performed By: #### C BC #### [facility] [address] [place], [place] [address] Dr. Jacqueline Mays WBC 5.3 103/ul Normal 4.0-11.0 [facility] Comment on above: Performed By: #### C BC #### [facility] [address] [address] [address] Jacqueline Mays Covid-19 PCR ([facility])on 02-06 SARS-CoV-2 (COVID-19) RNA JAS+probe Ql (Unsp spec) Not detected Normal NOT DETECTED [facility] Comment on above: Result Comment: When diagnostic [...] for this test is supported by the [place] of Health and Human Service's declaration that [...] used). Performed By: #### C BC #### [facility] [address] [place], [place] [id number] Dr. Jacqueline Mays ER URINE PROFILEon 2 Bilirubin Ql (U) Negative Normal NEGATIVE [facility] Comment on above: Performed By: #### C BC #### [facility] [address] [place], [place] [id number] Dr. Jacqueline Mays Clarity (U) CLEAR Normal CLEAR [facility] Comment on above: Performed By: #### C BC #### [facility] [address] [place] [address] Dr. Jacqueline Masy Color (U) YELLOW Normal YELLOW [facility] Comment on above: Performed By: #### C BC #### [facility] [address] [place] [address] Dr. Jacqueline CELAYA A micrscopic examination will be performed if indicated. Normal [facility] Comment on above: Performed By: #### C BC #### [facility] [address] [place] [address] Dr. Jacqueline Mays Glucose Ql (U) Negative Normal NEGATIVE [facility] Comment on above: Performed By: #### C BC #### [facility] [address] [place] [address] Dr. Jacqueline Mays Hemoglobin Ql (U) Negative Normal NEGATIVE [facility] Comment on above: Performed By: #### C BC #### [facility] [address] [place] [address] Dr. Jacqueline Mays Ketones Ql (U) Negative Normal NEGATIVE [facility] Comment on above: Performed By: #### C BC #### [facility] [address] [place] [address] Dr. Jacqueline Mays LEUKOCYTES Negative Normal NEGATIVE [facility] Comment on above: Performed By: #### C BC #### [facility] [address] [place] [address] Dr. Jacqueline Mays Nitrite Ql (U) Negative Normal NEGATIVE [facility] Comment on above: Performed By: #### C BC #### [facility] [address] [place] [address] Dr. Jacqueline Mays pH (U) 7.0 [pH] Normal 5-9 [facility] Comment on above: Performed By: #### C BC #### [facility] [address] [place] [address] Dr. Jacqueline Mays SPEC GRAVITY 1.010 Normal 1.005-<=1.02 5 [facility] Comment on above: Performed By: #### C BC #### [facility] [address] [place] [address] Dr. Jacqueline Mays UA PROTEIN Negative Normal NEGATIVE/ TRACE [facility] Comment on above: Performed By: #### C BC #### [facility] [address] [place] [address] Dr. Jacqueline Mays UR MICRO IND NOT INDICATED Normal [facility] Comment on above: Performed By: #### C BC #### [facility] [address] [place] [address] Dr. Jacqueline Mays Urobilinogen Qn (U) 0.2 {Tristan'U}/dL Normal 0.2 - 1. 0 [facility] Comment on above: Performed By: #### C BC #### [facility] [address] [place] [address] Dr. Jacqueline Mays ETHANOL (BLD ALC)on 02-23-20 22 ALC NOTE NOTE: 80 mg/dl is th e legal limit for a blood alcohol level Normal [facility] Comment on above: Performed By: #### C BC #### [facility] [address] [place] [address] Dr. Jacqueline Mays Ethanol [Mass/Vol] 32 mg/dL Normal [facility] Comment on above: Performed By: #### C BC #### [facility] [address] [place] [address] Dr. Jacqueline Mays INFLUENZA A AND B AGon 02-22 INFLUENZA A AG Negative Normal NEGATIVE SEE COMMENT [facility] Comment on above: Performed By: #### I NFLUAB #### [facility] [address] [place] [address] Dr. Jacqueline Mays INFLUENZA B AG Negative Normal NEGATIVE SEE COMMENT [facility] Comment on above: Performed By: #### I NFLUAB #### [facility] [address] [place] [address] Dr. Jacqueline Mays INTERNAL CONTROLS Within Normal Limits Normal Wi thin Normal Limits [facility] Comment on above: Performed By: #### I NFLUAB #### [facility] [address] [place] [address] Dr. Jacqueline Mays LIPASEon 04-17-2022 Lipase [Catalytic activity/Vol] 104.0 U/L Normal 23.0-300.0 [facility] Comment on above: Performed By: #### H STROPN, LIPA, CMP #### [facility] [address] [address] [address] Jacqueline Mays MAGNESIUMon 02-22-2022 Magnesium [Mass/Vol] 1.8 mg/dL Normal 1.6-2.3 [facility] Comment on above: Performed By: #### M G #### [facility] [address] [address] [address] Jacqueline Mays PROF 14(COMP METB)on 022 Albumin [Mass/Vol] 3.4 g/dL Normal 3.4-5.0 [facility] Comment on above: Performed By: #### H STROPN, LIPA, CMP #### [facility] [address] [place] [address] Dr. Jacqueline Mays Albumin/Globulin [Mass ratio] 1.0 {ratio} Normal [facility] Comment on above: Performed By: #### H STROPN, LIPA, CMP #### [facility] [address] [address] [address] Jacqueline Mays ALP [Catalytic activity/Vol] 116 U/L Normal 46-116 [facility] Comment on above: Performed By: #### H STROPN, LIPA, CMP #### [facility] [address] [address] [address] Jacqueline Mays ALT [Catalytic activity/Vol] 66 U/L Critically high 14-59 [facility] Comment on above: Performed By: #### H STROPN, LIPA, CMP #### [facility] [address] [address] [address] Jacqueline Mays Anion gap [Moles/Vol] 16.1 mmol/L Normal [facility] Comment on above: Performed By: #### H STROPN, LIPA, CMP #### [facility] [address] [address] [address] Jacqueline Mays AST [Catalytic activity/Vol] 79 U/L Critically high 15-37 [facility] Comment on above: Performed By: #### H STROPN, LIPA, CMP #### [facility] [address] [address] [address] Jacqueline Mays Bilirubin [Mass/Vol] 0.9 mg/dL Normal 0.2-1.3 [facility] Comment on above: Performed By: #### H STROPN, LIPA, CMP #### [facility] [address] [address] [address] Jacqueline Mays Calcium [Mass/Vol] 8.2 mg/dL Critically low 8.5-10.1 [facility] Comment on above: Performed By: #### H STROPN, LIPA, CMP #### [facility] [address] [place] [address] Dr. Jacqueline Mays Chloride [Moles/Vol] 101 mmol/L Normal 98-107 [facility] Comment on above: Performed By: #### H STROPN, LIPA, CMP #### [facility] [address] [address] [address] Jacqueline Mays CO2 [Moles/Vol] 24.7 mmol/L Normal 22.0-30.0 [facility] Comment on above: Performed By: #### H STROPN, LIPA, CMP #### [facility] [address] [place] [address] Dr. Jacqueline Mays Creatinine [Mass/Vol] 0.68 mg/dL Normal 0.52-1.04 [facility] Comment on above: Performed By: #### H STROPN, LIPA, CMP #### [facility] [address] [place] [address] Dr. Jacqueline Mays EGFR-AF KITT[place]IAN >60 Normal >=60 [facility] Comment on above: Performed By: #### H STROPN, LIPA, CMP #### [facility] [address] [place] [address] Dr. Jacqueline Mays EGFR-NON AF KITTITIAN >60 Normal >=60 [facility] Comment on above: Performed By: #### H STROPN, LIPA, CMP #### [facility] [address] [place] [address] Dr. Jacqueline Mays Globulin (S) [Mass/Vol] 3.4 g/dL Normal [facility] Comment on above: Performed By: #### H JAYLA LIPA, CMP #### [facility] [address] [address] [address] Jacqueline Mays Glucose [Mass/Vol] 146 mg/dL Critically high 74-106 [facility] Comment on above: Performed By: #### H JAYLA LIPA, CMP #### [facility] [address] [address] [address] Jacqueline Mays Potassium [Moles/Vol] 2.8 mmol/L Critically low 3.4-5.0 [facility] Comment on above: Performed By: #### H JAYLA LIPA, CMP #### [facility] [address] [address] [address] Jacqueline Mays Protein [Mass/Vol] 6.8 g/dL Normal 6.1-8.2 [facility] Comment on above: Performed By: #### H STROJOSE LUIS, LIPA, CMP #### [facility] [address] [address] [address] Jacqueline Mays Sodium [Moles/Vol] 139 mmol/L Normal 137-145 [facility] Comment on above: Performed By: #### H JAYLA, LIPA, CMP #### [facility] [address] [address] [address] Jacqueline Mays Urea nitrogen [Mass/Vol] 6.0 mg/dL Critically low 7.0-18.0 [facility] Comment on above: Performed By: #### H STROPN, LIPA, CMP #### [facility] [address] [address] [address] Jacqueline Mays Urea nitrogen/Creatinine [Mass ratio] 8.8 mg/mg Normal [facility] Comment on above: Performed By: #### H STROPN, LIPA, CMP #### [facility] [address] [address] [address] Jacqueline Mays PROTIMEon 02-22-2022 INR Coag (PPP) [Relative time] 1.04 {INR} Normal [facility] Comment on above: Performed By: #### P TT, PT #### [facility] [address] [address] [address] Jacqueline Mays INR GUIDELINES SEE BELOW Normal [facility] Comment on above: Result Comment: ILAN RED INR: 2.0 - 3.0 CONDITIONS NOT LISTED BELOW 2.5 - 3.5 FOR PROSTHETIC HEART VALVE REPLACEMENT 2.5 - 3.5 RECURRENT THROMBOSIS Performed By: #### P TT, PT #### [facility] [address] [address] [address] Jacqueline Mays PT Coag (PPP) [Time] 11.2 s Normal 9.0-11.6 [facility] Comment on above: Performed By: #### P TT, PT #### [facility] [address] [place] [address] Dr. Jacqueline Mays PTTon 02-22-2022 aPTT Coag (Bld) [Time] 24.0 s Normal 22.3-36.2 [facility] Comment on above: Performed By: #### P TT, PT #### [facility] [address] [address] [address] Jacqueline Mays TROPONIN, HIGH SENSITIVITYon 02-22-2022 HSTROP 6.2 pg/mL Normal 4.0-35.5 [facility] Comment on above: Result Comment: CUT- OFF POINTS HAVE BEEN ESTABLISHED BASED ON THE FOURTH UNIVERSAL DEFINITIONS OF MYOCARDIAL INFARCTION. THE UPPER REFERENCE LIMIT (URL) OF TROPONIN, DEFINED THE 99TH PERCENTILE OF cTnI DISTRIBUTION IN A REFERENCE POPULATION, HAS BEEN CONFIRMED THE DECISION THRESHOLD FOR CO DIAGNOSIS. Performed By: #### H STROPN, LIPA, CMP #### [facility] [address] [place] [address] Dr. Jacqueline Mays XR ABD FLAT UP_PA [...] LEENA KING Date: 2022-02-22 12:33 Normal [facility] CELIAC ANTIBODIES PROFILEon 11-14-2021 Deamidated Gliadin Abs, IgA 7 units Normal 0-19 [facility] Comment on above: Result Comment: Nega tive 0 - 19 Weak Positive 20 - 30 Moderate to Strong Positive >30 Performed By: #### I NFLUAB #### [facility] [address] [address] [address] Jacqueline Mays Deamidated Gliadin Abs, IgG 2 units Normal 0-19 [facility] Comment on above: Result Comment: Nega tive 0 - 19 Weak Positive 20 - 30 Moderate to Strong Positive >30 Performed By: #### I NFLUAB #### [facility] [address] [address] [address] Jacqueline Mays Endomysial Antibody IgA Negative Normal Negative [facility] Comment on above: Performed By: #### I NFLUAB #### [facility] [address] [address] [address] Jacqueline Mays Immunoglobulin A, Qn, Serum 256 mg/dL Normal 87-352 [facility] Comment on above: Performed By: #### I NFLUAB #### [facility] [address] [address] [address] Jacqueline Mays t-Transglutaminase (tTG) IgA <2 Normal 0-3 [facility] Comment on above: Result Comment: Nega tive 0 - 3 Weak Positive 4 - 10 Positive >10 . Tissue Transglutaminase (tTG) has been identified as the endomysial antigen. Studies have demonstr- ated that endomysial IgA antibodies have over 99% specificity for gluten sensitive enteropathy. Performed By: #### I NFLUAB #### [facility] [address] [address] [address] Jacqueline Mays t-Transglutaminase (tTG) IgG <2 Normal 0-5 [facility] Comment on above: Result Comment: Nega tive 0 - 5 Weak Positive 6 - 9 Positive >9 Performed By: #### I NFLUAB #### [facility] [address] [place] [address] Dr. Jacqueline Mays KENZIE DIRECTon 11-13-2021 KENZIE Direct Negative Normal Negative [facility] Comment on above: Performed By: #### C BC #### [facility] [address] [place] [address] Dr. Jcaqueline Mays KENZIE by IFAon 11-13-2021 Antinuclear Antibodies, IFA Negative Normal [facility] Comment on above: Result Comment: Nega tive <1:80 Borderline 1:80 Positive >1:80 ICAP nomenclature: AC-0 For more information about Hep-2 cell patterns use ANApatterns.org, the official website for the International Consensus on Antinuclear Antibody (KENZIE) Patterns (ICAP). Performed By: #### C BC #### [facility] [address] [place] [address] Dr. Jacqueline Mays ANTISTREPTOLYSIN O AB (ASO)o n 11-13-2021 Antistreptolysin O Ab <20.0 Normal 0.0-200.0 [facility] Comment on above: Performed By: #### C BC #### [facility] [address] [place] [address] Dr. Jacqueline Mays C3 and C4 COMPLEMENTon 11-13 Complement C3, Serum 114 mg/dL Normal 82-167 [facility] Comment on above: Performed By: #### C BC #### [facility] [address] [place] [address] Dr. Jacqueline Mays Complement C4, Serum 22 mg/dL Normal 12-38 [facility] Comment on above: Performed By: #### C BC #### [facility] [address] [place] [address] Dr. Jacqueline Mays RHEUMATOID FACTORon 11-13-19 22 RA Latex Turbid. 11.1 IU/mL Normal <14.0 [facility] Comment on above: Performed By: #### I NFLUAB #### [facility] [address] [address] [address] Jacqueline Mays SLE PROFILE Aon 11-13-2021 Anti-DNA (DS) Ab Qn <1 Normal 0-9 [facility] Comment on above: Result Comment: Nega tive <5 Equivocal 5 - 9 Positive >9 Performed By: #### I NFLUAB #### [facility] [address] [address] [address] Jacqueline Mays Antichromatin Antibodies <0.2 Normal 0.0-0.9 [facility] Comment on above: Performed By: #### I NFLUAB #### [facility] [address] [place] [address] Dr. Jacqueline Mays RA Latex Turbid. 10.4 IU/mL Normal <14.0 [facility] Comment on above: Performed By: #### I NFLUAB #### [facility] [address] [place] [address] Dr. Jacqueline Mays ANALYTICAL RESEARCH CHEMIST Antibodies 0.3 AI Normal 0.0-0.9 [facility] Comment on above: Performed By: #### I NFLUAB #### [facility] [address] [address] [address] Jacqueline Mays Sjogren's Anti-SS-A <0.2 Normal 0.0-0.9 [facility] Comment on above: Performed By: #### I NFLUAB #### [facility] [address] [address] [address] Jacqueline Mays Sjogren's Anti-SS-B <0.2 Normal 0.0-0.9 [facility] Comment on above: Performed By: #### I NFLUAB #### [facility] [address] [address] [address] Jacqueline Mays Cain Antibodies <0.2 Normal 0.0-0.9 [facility] Comment on above: Performed By: #### I NFLUAB #### [facility] [address] [address] [address] Jacqueline Mays AMMONIAon 11-12-2021 Ammonia (P) [Moles/Vol] 19 umol/L Normal 10-30 [facility] Comment on above: Performed By: #### A MM #### [facility] [address] [place] [address] Dr. Jacqueline Mays AMYLASEon 11-12-2021 Amylase [Catalytic activity/Vol] 43 U/L Normal 31-110 [facility] Comment on above: Performed By: #### I NFLUAB #### [facility] [address] [place] [address] Dr. Jacqueline Mays CBC AUTO DIFFon 11-12-2021 BASO # 0.1 103/ul Normal 0.0-0.1 [facility] Comment on above: Performed By: #### C BC #### [facility] [address] [place] [address] Dr. Jacqueline Mays Basophils/100 WBC (Bld) 0.6 % Normal 0.2-2.0 [facility] Comment on above: Performed By: #### C BC #### [facility] [address] [place] [address] Dr. Jacqueline Mays EO # 0.3 103/ul Normal 0.0-0.7 [facility] Comment on above: Performed By: #### C BC #### [facility] [address] [place] [address] Dr. Jacqueline Mays Eosinophils/100 WBC (Bld) 3.1 % Normal 0.9-7.0 [facility] Comment on above: Performed By: #### C BC #### [facility] [address] [place] [address] Dr. Jacqueline Mays Erythrocyte distribution width (RBC) [Ratio] 12.8 % Normal 11.0-15.0 [facility] Comment on above: Performed By: #### C BC #### [facility] [address] [place] [address] Dr. Jacqueline Mays Hematocrit (Bld) [Volume fraction] 48.7 % Critically high 36.0-48.0 [facility] Comment on above: Performed By: #### C BC #### [facility] [address] [place] [address] Dr. Jacqueline Mays Hemoglobin (Bld) [Mass/Vol] 16.5 g/dL Critically high 12.0-16.0 [facility] Comment on above: Performed By: #### C BC #### [facility] [address] [place] [address] Dr. Jacqueline Mays IG # 0.04 10e3/ul Critically high 0.00-0.03 [facility] Comment on above: Performed By: #### C BC #### [facility] [address] [place] [address] Dr. Jacqueline Mays IG % 0.5 % Normal 0.0-0.5 [facility] Comment on above: Performed By: #### C BC #### [facility] [address] [place] [address] Dr. Jacqueline Mays LYMPH # 2.2 103/ul Normal 1.2-3.8 [facility] Comment on above: Performed By: #### C BC #### [facility] [address] [place] [address] Dr. Jacqueline Mays Lymphocytes/100 WBC (Bld) 25.6 % Normal 20.5-60.0 [facility] Comment on above: Performed By: #### C BC #### [facility] [address] [place] [address] Dr. Jacqueline Mays MANUAL DIFF REQ NO Normal [facility] Comment on above: Performed By: #### C BC #### [facility] [address] [place] [address] Dr. Jacqueline Mays MCH (RBC) [Entitic mass] 33.1 pg Normal 26.7-34.0 [facility] Comment on above: Performed By: #### C BC #### [facility] [address] [place] [address] Dr. Jacqueline Mays MCHC (RBC) [Mass/Vol] 33.9 g/dL Normal 29.9-35.2 [facility] Comment on above: Performed By: #### C BC #### [facility] [address] [place] [address] Dr. Jacqueline Mays MCV (RBC) [Entitic vol] 97.8 fL Normal 81.0-99.0 [facility] Comment on above: Performed By: #### C BC #### [facility] [address] [place] [address] Dr. Jacqueline Mays MONO # 0.6 103/ul Normal 0.3-0.8 [facility] Comment on above: Performed By: #### C BC #### [facility] [address] [place] [address] Dr. Jacqueline Mays Monocytes/100 WBC (Bld) 7.0 % Normal 1.7-12.0 [facility] Comment on above: Performed By: #### C BC #### [facility] [address] [place] [address] Dr. Jacqueline Mays NEUT # 5.3 103/ul Normal 1.4-6.5 [facility] Comment on above: Performed By: #### C BC #### [facility] [address] [place] [address] Dr. Jacqueline Mays Neutrophils/100 WBC (Bld) 63.2 % Normal 43.0-75.0 [facility] Comment on above: Performed By: #### C BC #### [facility] [address] [place] [address] Dr. Jacqueline Mays Platelet mean volume (Bld) [Entitic vol] 8.7 fL Critically low 9.5-13.5 [facility] Comment on above: Performed By: #### C BC #### [facility] [address] [place] [address] Dr. Jacqueline Mays PLT 320 103/ul Normal 150-450 [facility] Comment on above: Performed By: #### C BC #### [facility] [address] [place] [address] Dr. Jacqueline Mays RBC 4.98 106/ul Normal 4.20-5.40 [facility] Comment on above: Performed By: #### C BC #### [facility] [address] [place] [address] Dr. Jacqueline Mays WBC 8.4 103/ul Normal 4.0-11.0 [facility] Comment on above: Performed By: #### C BC #### [facility] [address] [place] [address] Dr. Jacqueline Mays CRPon 11-12-2021 CRP [Mass/Vol] mg/L Normal <=1.0 [facility] Comment on above: Performed By: #### I NFLUAB #### [facility] [address] [place] [address] Dr. Jacqueline Mays LIPASEon 11-12-2021 Lipase [Catalytic activity/Vol] 204.0 U/L Normal 23.0-300.0 [facility] Comment on above: Performed By: #### I NFLUAB #### [facility] [address] [place] [address] Dr. Jacqueline Mays PROF 14(COMP METB)on 022 Albumin [Mass/Vol] 3.6 g/dL Normal 3.5-5.0 [facility] Comment on above: Performed By: #### I NFLUAB #### [facility] [address] [place] [address] Dr. Jacqueline Mays Albumin/Globulin [Mass ratio] 0.9 {ratio} Normal [facility] Comment on above: Performed By: #### I NFLUAB #### [facility] [address] [place] [address] Dr. Jacqueline Mays ALP [Catalytic activity/Vol] 72 U/L Normal 38-126 [facility] Comment on above: Performed By: #### I NFLUAB #### [facility] [address] [place] [address] Dr. Jacqueline Mays ALT [Catalytic activity/Vol] 47 U/L Normal 9-52 [facility] Comment on above: Performed By: #### I NFLUAB #### [facility] [address] [place] [address] Dr. Jacqueline Mays Anion gap [Moles/Vol] 13.9 mmol/L Normal [facility] Comment on above: Performed By: #### I NFLUAB #### [facility] [address] [place] [address] Dr. Jacqueline Mays AST [Catalytic activity/Vol] 38 U/L Critically high 14-36 [facility] Comment on above: Performed By: #### I NFLUAB #### [facility] [address] [place] [address] Dr. Jacqueline Mays Bilirubin [Mass/Vol] 0.9 mg/dL Normal 0.2-1.3 [facility] Comment on above: Performed By: #### I NFLUAB #### [facility] [address] [place] [address] Dr. Jacqueline Mays Calcium [Mass/Vol] 9.7 mg/dL Normal 8.4-10.2 [facility] Comment on above: Performed By: #### I NFLUAB #### [facility] [address] [place] [address] Dr. Jacqueline Mays Chloride [Moles/Vol] 102 mmol/L Normal 98-107 [facility] Comment on above: Performed By: #### I NFLUAB #### [facility] [address] [place] [address] Dr. Jacqueline Mays CO2 [Moles/Vol] 26.9 mmol/L Normal 22.0-30.0 [facility] Comment on above: Performed By: #### I NFLUAB #### [facility] [address] [place] [address] Dr. Jacqueline Mays Creatinine [Mass/Vol] 0.62 mg/dL Normal 0.52-1.04 [facility] Comment on above: Performed By: #### I NFLUAB #### [facility] [address] [place] [address] Dr. Jacqueline Mays EGFR-AF KITTITIAN >60 Normal >=60 [facility] Comment on above: Performed By: #### I NFLUAB #### [facility] [address] [place] [address] Dr. Jacqueline Mays EGFR-NON AF KITTITIAN >60 Normal >=60 [facility] Comment on above: Performed By: #### I NFLUAB #### [facility] [address] [place] [address] Dr. Jacqueline Mays Globulin (S) [Mass/Vol] 3.8 g/dL Normal [facility] Comment on above: Performed By: #### I NFLUAB #### [facility] [address] [place] [address] Dr. Jacqueline Mays Glucose [Mass/Vol] 109 mg/dL Critically high 74-106 [facility] Comment on above: Performed By: #### I NFLUAB #### [facility] [address] [place] [address] Dr. Jacqueline Mays Potassium [Moles/Vol] 3.8 mmol/L Normal 3.4-5.0 [facility] Comment on above: Performed By: #### I NFLUAB #### [facility] [address] [place] [address] Dr. Jacqueline Mays Protein [Mass/Vol] 7.4 g/dL Normal 6.1-8.2 [facility] Comment on above: Performed By: #### I NFLUAB #### [facility] [address] [place] [address] Dr. Jacqueline Mays Sodium [Moles/Vol] 139 mmol/L Normal 137-145 [facility] Comment on above: Performed By: #### I NFLUAB #### [facility] [address] [place] [address] Dr. Jacqueline Mays Urea nitrogen [Mass/Vol] 7.0 mg/dL Normal 7.0-17.0 [facility] Comment on above: Performed By: #### I NFLUAB #### [facility] [address] [place] [address] Dr. Jacqueline Mays Urea nitrogen/Creatinine [Mass ratio] 11.3 mg/mg Normal [facility] Comment on above: Performed By: #### I NFLUAB #### [facility] [address] [place] [address] Dr. Jacqueline Mays URIC ACID SERUMon 11-12-2021 Urate [Mass/Vol] 4.7 mg/dL Normal 2.5-6.2 [facility] Comment on above: Performed By: #### I NFLUAB #### [facility] [address] [place] [address] Dr. Jacqueline Mays XR hip RT min 2V(w/wo pelvis )*on 06-25-2021 XR hip RT min 2V(w/wo pelvis)* [facility] Main [address] [address] XRay Report Signed Patient: Megha Mcdaniel MR#: [id number] 3 : 1970 Acct:[id number] Age/Sex: 51 / F ADM Date: 06/25/21 Loc: ER Room: Type: [facility] ER Attending Dr: Ordering Provider: Jose Priest [...] Fausto Negro M.D.06/25/2021 8:24 PM Dictation Location: [place] [address] Transcribed By: [facility] 06/25/212023 Dictated By: Fausto Negro II, MD 06/25/212020 Signed By: 06/25/212023 Normal [facility] Vital Signs Date Time Vital Sign Value Performing Clinician Madelini kyle 04-30-2022 11:55-0400 Diastolic blood pressure 70 mm[Hg] MD Kelly Jo Work Phone: [facility] 04-30-2022 11:55-0400 Heart rate 70 /min MD Kelly Jo Work Phone: [facility] 04-30-2022 11:55-0400 Respiratory rate 18 /min MD Kelly Jo Work Phone: [facility] 04-30-2022 11:55-0400 SaO2% (BldA) [Mass fraction] 98 % MD Kelly Jo Work Phone: [facility] 04-30-2022 11:55-0400 Systolic blood pressure 152 mm[Hg] MD Kelly Jo Work Phone: [facility] 04-30-2022 07:53-0400 Body height 162.56 cm MD Kelly Jo Work Phone: [facility] 04-30-2022 07:53-0400 Body mass index (BMI) [Ratio] 24.5 kg/m2 MD Kelly Jo Work Phone: [facility] 04-30-2022 07:53-0400 Body weight 65 kg MD Kelly Jo Work Phone: [facility] 04-30-2022 07:51-0400 Body temperature 97.9 [degF] MD Kelly Jo Work Phone: [facility] Encounters Encounter Date Encounter Type Care Provider Facility Start: 01-11-2024 End: 01-11-2024 ambulatory [facility] Rajiv MARCH [facility] Start: 12-14-2023 Telephone encounter Clem March 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 Work Phone: [facility] Start: 10-12-[address] KELLY JO Facility :[facility] Start: 04-30-[address] KELLY JO Facility :[facility] Start: 04-30-2022 End: 04-30-2022 Emergency department patient visit MD Kelly Jo Work Phone: [facility] Start: 03-24-2022 End: 03-25-[address] KELLY JO Facility:[facility] Start: 02-22-2022 End: 02-22-[address] KELLY JO Facility:[facility] Start: 01-12-[address] KELLY JO Facility :[facility] Start: 11-12-2021 End: 11-13-[address] KELLY JO Facility:[facility] Start: 07-01-2018 End: 07-02-2018 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 Facility:[facility] Procedures Date Procedure Procedure Detail Performing Clinician Start: 01-11-2024 Colonoscopy Colonoscopy CLEM MARCH Start: 05-21-2022 Colonoscopy Clem gates 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 Work Phone: Start: 04-30-2022 Computed tomography of abdomen and pelvis with contrast MD Kelly Jo Work Phone: Plan of Treatment Date Care Activity Detail Author Start: 05-21-2027 Screening for malignant neoplasm of colon Colonoscopy [facility] Start: 01-11-2024 End: 01-11-2024 Patient encounter procedure 01/11/2024 10:30 AM EST Office Visit [facility] [address] [place] [id number] Clem March, 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 [address] [place] [address] [facility] Start: 07-09-2023 Influenza vaccination Influenza Vaccine [facility] Start: 06-01-2023 Adult BMI Screening Adult BMI Screening [facility] Start: 06-01-2023 Tobacco Screening Tobacco Screening [facility] Start: 01-27-2022 Administration of varicella zoster vaccine Zoster (Shingles) Vaccine (1 of 2) [facility] Start: 01-27-1993 Screening for malignant neoplasm of cervix Pap Smear [facility] Start: 01-27-1991 DTaP,Tdap and Td Vaccines (1 - Tdap) DTaP,Tdap and Td Vaccines (1 - Tdap) [facility] Start: 1984 Depression Screening Depression Screening [facility] Patient Education Colitis (DC) A bdominal Pain, Adult ED [facility] Work Phone: Patient referral [facility] Work Phone: Payers Date Payer Category Payer Private Health Insurance [facility] [employer] [id number] 2022-Present [phone] [address] [place] [address] [id number] 2022 Private Health Insurance [id number] 1970 Unknown [id number] 1970 Unknown [id number] [id number] 1972 Unknown [id number] [id number] 1972 Unknown [id number]. [id number] 1972 Unknown [id number]. [id number] 1972 Unknown [id number]. [id number] 1972 Unknown [id number]. [id number] 1972 Unknown [id number] 1957 Private Health Insurance [id number] 1957 Self-pay [id number] Medicaid [facility] [id number] Self-pay Self Pay [id number] Unknown Social History Date Type Detail Facility Start: 04-30-[facility]22 [facility] Start: 1970 Sex Assigned At Female F [facility] Start: 05-06-2022 Tobacco smoking stat us NHIS Smokes tobacco daily [facility] History of tobacco use Cigarette Smoker [facility] Start: 04-19-2019 End: 05-06-2022 Cigarettes smoked current (pack per day) - Reported 1 [facility] Start: 05-06-2022 Tobacco use and exposure Smokeless tobacco non-user [facility] Start: 06-01-2022 Alcohol intake Current drinke r of alcohol (finding) [facility] Start: 04-19-2019 End: 06-01-2022 Tobacco use panel [facility] Childcare Unknown [facility] Start: 06-01-2022 Alcohol Comment socially [facility] Start: 1970 Sex Assigned At Not on file [facility] Note 12-14-2023 Telephone Encounter - Zina Read - 12/14/2023 1:41 PM ESTTelephone Encounter - Zina Read - 12/14/2023 1:41 PM EST Note Date & Type Note Facility 12-14-2023 Miscellaneous Notes Formattin g of this note might be different from the original. Called Megha regarding the hemorrhoids from Dr. Neri, I was unable to leave a message as her voicemail box is full. Called Megha regarding the referral that our office received, we scheduled her an appointment on 01/11/2024. documented in this encounter [facility] Telephone encounter Note 12-14-2023 Telephone Encounter - Zina Read - 12/14/2023 1:41 PM EST Note Date & Type Note Facility 12-14-2023 Telephone encount er Note Called Megha regarding the hemorrhoids from Dr. Neri, I was unable to leave a message as her voicemail box is full. [facility] Telephone encounter Note 12-14-2023 Telephone Encounter - Zina Read - 12/14/2023 1:41 PM EST Note Date & Type Note Facility 12-14-2023 Telephone encount er Note Called Megha regarding the referral that our office received, we scheduled her an appointment on 01/11/2024. [facility] Evaluation note Note Date & Type Note Facility Evaluation note No assessment information availa [facility] Work Phone: Instructions Note Date & Type Note Facility Instructions Not on filedocumented in this en counter [facility] Summary Purpose Family History No Family History [...] section and content) DATE CREATED AUTHOR 07/03/2018 [facility] DATE CREATED AUTHOR AUTHOR'S ORGANIZ ATION 05/15/2022 [facility] DATE CREATED AUTHOR AUTHOR'S ORGANIZ ATION 10/12/2022 [place] DATE CREATED AUTHOR AUTHOR'S ORGANIZ ATION 08/12/2023 [facility] DATE CREATED AUTHOR AUTHOR'S ORGANIZ ATION 01/12/2024 [facility] Care Teams (unrecognized sec tion and content) Team Status: Inactive Member Role Status Dates Kelly Jo MD Primary Care Provider Active Michael Avila DO Emergency Provider Active Team Status: Active Member Role Status Dates Kelly Jo MD Primary Care Provider Active [employer]dn[employer] Relationship Specialty Start Date End Date Kelly Jo MD [address] [place] [address] PCP - General Family Medicine 05/19/22 Goals (unrecognized section and content) Goals may be documented in a n alternate sectionNot on filedocumented as of this encounter FOR RECORDS PERTAINING TO PATIENTS WHO ARE [...] BE BASED ON THE PRIMARY CLINICAL RECORDS. [facility] provides no warranty or guarantee of the accuracy or completeness of information in this document.
[2024-10-04 08:16] LABS: Basophils Absolute Auto 0.1 10^3/uL (0.0-0.1); Basophils Percent Auto 0.6 % (0.2-2.0); Eosinophils Absolute Auto 0.4 10^3/uL (0.0-0.7); Eosinophils Percent Auto 5.3 % (0.9-7.0); Hematocrit 40.5 % (36.0-48.0); Hemoglobin 13.7 g/dL (12.0-16.0); Immature Granulocytes Abs Auto 0.02 10^3/uL (0.00-0.03); Immature Granulocytes Pct Auto 0.3 % (0.0-0.5); Lymphocytes Absolute Auto 2.7 10^3/uL (1.2-3.8); Lymphocytes Percent Auto 35.1 % (20.5-60.0); Mean Corpuscular HGB Conc 33.8 g/dL (29.9-35.2); Mean Corpuscular Hemoglobin 31.9 pg (26.7-34.0); Mean Corpuscular Volume 94.4 fL (81.0-99.0); Mean Platelet Volume 8.7 fL (9.5-13.5); Monocytes Absolute Auto 0.6 10^3/uL (0.3-0.8); Monocytes Percent Auto 7.2 % (1.7-12.0); Neutrophils Percent Auto 51.5 % (43.0-75.0); Platelet Count 307 10^3/uL (150-450); Red Blood Count 4.29 10^6/uL (4.20-5.40); Red Cell Distribution Width 13.1 % (11.0-15.0); White Blood Count 7.7 10^3/uL (4.0-11.0)
[2024-10-04 08:33] LABS: Estimated Average Glucose 114 mg/dL; Glycohemoglobin A1C 5.6 % (4.5-6.2)
[2024-10-04 09:51] LABS: Alanine Aminotransferase 30 U/L (14-59); Albumin Level 3.5 g/dL (3.4-5.0); Alkaline Phosphatase 67 U/L (46-116); Amylase 43 U/L (25-115); Anion Gap 14.6; Aspartate Amino Transferase 24 U/L (15-37); BUN Creatinine Ratio 7.7; Bilirubin Total 0.6 mg/dL (0.2-1.0); Chloride 101 mmol/L (98-107); Chol HDL Ratio 5.3; Cholesterol 227 mg/dL (<=200); Estimated GFR (African America >60 (>=60 mL/min/1.73m^2); Estimated GFR (Non-African Ame 56 (>=60 mL/min/1.73m^2); Free T3 2.63 pg/mL (2.18-3.98); Globulin 3.6 g/dL; Glucose 101 mg/dL (74-106); HDL Cholesterol 43 mg/dL (40-60); Potassium 3.6 mmol/L (3.5-5.1); Sodium 136 mmol/L (136-145); Thyroid Stimulating Hormone 12.086 uIU/mL (0.358-3.740); Total Protein 7.1 g/dL (6.4-8.2); Triglycerides 581 mg/dL (<=150); VLDL CHOLESTEROL 116.2 mg/dL
[2024-10-04 11:28] LABS: LDL Cholesterol Direct 88 mg/dL
[2024-10-05 03:07] LABS: Insulin 8.2 uIU/mL (2.6-24.9)
[2024-10-05 04:07] LABS: Vitamin B12 369 pg/mL (232-1245)
== END 2024-10-04 07:43 | disposition home or self-care (01) ==
PROVIDERS: PCP Family Medicine; Visit Provider Family Medicine
DX: Z00.00 Encounter for general adult medical examination without abnormal findings (principal); E44.0 Moderate protein-calorie malnutrition; R10.9 Unspecified abdominal pain; J44.9 Chronic obstructive pulmonary disease, unspecified; J20.9 Acute bronchitis, unspecified; R10.2 Pelvic and perineal pain; R73.09 Other abnormal glucose; D64.9 Anemia, unspecified; Z12.12 Encounter for screening for malignant neoplasm of rectum; M51.369 Other intervertebral disc degeneration, lumbar region without mention of lumbar back pain or lower extremity pain
CPT/HCPCS: 36415; 72110; 74022; 80053; 80061; 82150; 82306; 82607; 82746; 83036; 83525; 83540; 83690; 83721; 84436; 84443; 84481; 85025

== ENCOUNTER 2024-12-06 09:19 | Outpatient (OUT) | payer OTHER, SELFPAY ==
--- OUTSIDE RECORDS SUMMARY | 2024-12-06 09:22 | XMS_ITS | CCD ---
Author Organization [facility] Inform ion Partnership [facility] Care Team Providers Care Criminal Court Judge Name Role Phone PHYSICIAN, DEFAULT Unavailable Unavailable PHYSICIAN, DEFAULT Unavailable Unavailable KELLY JO Unavailable Unavailable MD Kelly Jo Primary Care Provider [phone] Michael Avila Emergency Provider [phone] ALYSSA, DR MENDOZA Primary Care Unavailable PAY, [...] Unavailable Kelly Jo MD Primary Care Provider [phone] CLEM MARCH Attending Unavailable KELLY JO Referring Unavailable KELLY JO Primary Care Unavailable Allergies Allergy Classification Reported Allergen(s) Allergy Type Date of Onset Reaction(s) Facility (1 source) 48658,00 Drug allergy (disorder) 09-18-2009 [facility] Repository Medications Current Medications Medication Drug [...] 03-27-2022 Episodic Other aftercare (1 source) Other long term care phlebotomist (current) drug therapy; Translations: [OTH SHELTER CURRENT DRUG THERAPY] Onset: 02-24-2022 Episodic Other [...] Letter August 05, [address] [place] [address] [address] : 1970 Dear Megha, We have been trying to reach you with no success. It is important that you return our call upon receiving this letter. Also, at the time of your call, please provide us with your current information. Thank you for your prompt attention to this matter. Sincerely, Dr. Rohit Delacruz MD General Surgery Normal [facility] ED Note-Physicianon 07-16-20 ED Note-Physician [id number] .[id number]:127 Normal [facility] Physician Referralon 023 Physician Referral [id number]. 00CD:127 Normal [facility] RAD - CT Reporton 07-16-2023 RAD - CT Report [id number]. 00CD:127 Normal [facility] Physician Referralon 023 Physician Referral [id number]. 00CD:127 Normal [facility] Albumin [Mass/volume] in Ser um or PlasmaOrdered By: Michael Avila on 04-30-2022 Albumin [Mass/Vol] 3.4 g/dL 3.2-5.5 [facility] Automated erythrocytes count in urine sediment (number/area)Ordered By: Michael Avila on 04-30-2022 RBC Auto (Urine sed) [#/Area] 3-4 [HPF] [facility] Automated leukocytes count i n urine sediment (number/area)Ordered By: Michael Avila on 04-30-2022 WBC Auto (Urine sed) [#/Area] 3-4 [HPF] [facility] Basic Metabolic Panelon 04-09 Calcium [Mass/Vol] 9.0 mg/dL Normal 8.2-10.2 [facility] Comment on above: Performed By: #### C BC, BMP, LIPASE, TSH3, HEPATIC #### [address] Chloride [Moles/Vol] 99 mmol/L Normal 95-114 [facility] Comment on above: Performed By: #### C BC, BMP, LIPASE, TSH3, HEPATIC #### [facility] [address] CO2 [Moles/Vol] 22.8 mmol/L Normal 22.0-30.0 [facility] Comment on above: Performed By: #### C BC, BMP, LIPASE, TSH3, HEPATIC #### [facility] [address] Creatinine [Mass/Vol] 0.85 mg/dL Normal 0.44-1.03 [facility] Comment on above: Performed By: #### C BC, BMP, LIPASE, TSH3, HEPATIC #### [address] Creatinine Clr Calc Pharmacy 68.37 [facility] Comment on above: Performed By: #### C BC, BMP, LIPASE, TSH3, HEPATIC #### [address] Estimated GFR ( Esther > 60 [facility] Comment on above: Result Comment: GFR estimated reference range: According to KDOQI guidelines, <60 ml/min/1.73m2 is sufficient to diagnose a patient with chronic kidney disease. Performed By: #### C BC, BMP, LIPASE, TSH3, HEPATIC #### [address] Estimated GFR (Non- Am > 60 [facility] Comment on above: Performed By: #### C BC, BMP, LIPASE, TSH3, HEPATIC #### [address] Glucose [Mass/Vol] 114 mg/dL High 70-100 [facility] Comment on above: Result Comment: [place] om Glucose Reference Range is dependent on time and content of last meal. Glucose of more than 200 mg/dL in a nonstressed, ambulatory subject supports the diagnosis of Diabetes Mellitus. ADA recommended reference range Performed By: #### C BC, BMP, LIPASE, TSH3, HEPATIC #### [place] [id number] [place] Potassium [Moles/Vol] 3.7 mmol/L Normal 3.5-5.1 [facility] Comment on above: Performed By: #### C BC, BMP, LIPASE, TSH3, HEPATIC #### [facility] [address] Sodium [Moles/Vol] 136 mmol/L Normal 136-146 [facility] Comment on above: Performed By: #### C BC, BMP, LIPASE, TSH3, HEPATIC #### [facility] [address] Urea nitrogen [Mass/Vol] 7 mg/dL Low 07-31 [facility] Comment on above: Performed By: #### C BC, BMP, LIPASE, TSH3, HEPATIC #### [address] Basophils Auto (Bld) [#/Vol] Ordered By: Michael Avila on 04-30-2022 Basophils (Bld) [#/Vol] 0.0 10*3/uL 0.0-0.2 [facility] Basophils/100 WBC Auto (Bld) Ordered By: Michael Avila on 04-30-2022 Basophils/100 WBC (Bld) 0.5 % [facility] Bilirubin Test strip Ql (U)O rdered By: Michael Avila on 04-30-2022 Bilirubin Ql (U) Negative Negative [facility] Blood hemoglobin measurement (mass/volume)Ordered By: Michael Avila on 04-30-2022 Hemoglobin (Bld) [Mass/Vol] 15.4 g/dL 11.8-15.4 [facility] Blood leukocytes automated c ount (number/volume)Ordered By: Michael Avila on 04-30-2022 WBC (Bld) [#/Vol] 7.1 10*3/uL 4.5-11.[address] [facility] [address] abdomen pelvis w conon CT abdomen pelvis w [facility] [place] [address] CT Scan Report Signed Patient: Megha Mcdaniel MR#: [id number] 3 : 1970 Acct:[id number] Age/Sex: 52 / F ADM Date: 04/30/22 Loc: ER Room: Type: [facility] ER Attending Dr: Copies to: Michael Avila [...] Shailesh Jesus M.D.04/30/2022 9:41 AM Dictation Location: [place] [address] Transcribed By: [facility] 04/30/22 0941 Dictated By: Shailesh Jesus DO 04/30/22 0932 Signed By: 04/30/22 0941 Normal [facility] Color Auto (U)Ordered By: Dominick Avila on 04-30-2022 Color (U) Dark yellow Yellow [facility] Complete Blood Count Auto Di ffon 04-30-2022 Basophils (Bld) [#/Vol] 0.0 10*3/uL Normal 0.0-0.2 [facility] Comment on above: Result Comment: PERF ORMED BY: [place] [address] PATHOLOGIST ASSISTANT MANAGER BILINGUAL YANETH CEDILLO M.D. Performed By: #### C BC, BMP, LIPASE, TSH3, HEPATIC #### [address] Basophils/100 WBC (Bld) 0.5 % Normal . [facility] Comment on above: Performed By: #### C BC, BMP, LIPASE, TSH3, HEPATIC #### [address] Eosinophils (Bld) [#/Vol] 0.1 10*3/uL Normal 0.0-0.45 [facility] Comment on above: Performed By: #### C BC, BMP, LIPASE, TSH3, HEPATIC #### [address] Eosinophils/100 WBC (Bld) 1.9 % Normal . [facility] Comment on above: Performed By: #### C BC, BMP, LIPASE, TSH3, HEPATIC #### [address] Erythrocyte distribution width (RBC) [Ratio] 15.3 % Normal 11.9-15.3 [facility] Comment on above: Performed By: #### C BC, BMP, LIPASE, TSH3, HEPATIC #### [address] Hematocrit (Bld) [Volume fraction] 44.8 % Normal 34.0-46.4 [facility] Comment on above: Performed By: #### C BC, BMP, LIPASE, TSH3, HEPATIC #### [address] Hemoglobin (Bld) [Mass/Vol] 15.4 g/dL Normal 11.8-15.4 [facility] Comment on above: Performed By: #### C BC, BMP, LIPASE, TSH3, HEPATIC #### [address] Lymphocytes (Bld) [#/Vol] 1.5 10*3/uL Normal 1.00-4.8 [facility] Comment on above: Performed By: #### C BC, BMP, LIPASE, TSH3, HEPATIC #### [address] Lymphocytes/100 WBC (Bld) 21.1 % Normal . [facility] Comment on above: Performed By: #### C BC, BMP, LIPASE, TSH3, HEPATIC #### [address] MCH (RBC) [Entitic mass] 34.6 pg High 24.7-34.3 [facility] Comment on above: Performed By: #### C BC, BMP, LIPASE, TSH3, HEPATIC #### [address] MCV (RBC) [Entitic vol] 100.6 fL High 80-100 [facility] Comment on above: Performed By: #### C BC, BMP, LIPASE, TSH3, HEPATIC #### [address] Mean Corpuscular HGB Conc 34.4 g/dL Normal 32.0-35.0 [facility] Comment on above: Performed By: #### C BC, BMP, LIPASE, TSH3, HEPATIC #### [address] Monocytes (Bld) [#/Vol] 0.7 10*3/uL Normal 0.0-0.8 [facility] Comment on above: Performed By: #### C BC, BMP, LIPASE, TSH3, HEPATIC #### [address] Monocytes/100 WBC (Bld) 9.5 % Normal . [facility] Comment on above: Performed By: #### C BC, BMP, LIPASE, TSH3, HEPATIC #### [address] Neutrophils (Bld) [#/Vol] 4.8 10*3/uL Normal 1.8-7.7 [facility] Comment on above: Performed By: #### C BC, BMP, LIPASE, TSH3, HEPATIC #### [address] Neutrophils/100 WBC (Bld) 67.0 % Normal . [facility] Comment on above: Performed By: #### C BC, BMP, LIPASE, TSH3, HEPATIC #### [address] Nucleated RBC/100 WBC (Bld) [Ratio] 0.0 % Normal 0-0.5 [facility] Comment on above: Performed By: #### C BC, BMP, LIPASE, TSH3, HEPATIC #### [address] Platelet mean volume (Bld) [Entitic vol] 8.0 fL Normal 6.3-10.7 [facility] Comment on above: Performed By: #### C BC, BMP, LIPASE, TSH3, HEPATIC #### [address] Platelets (Bld) [#/Vol] 336 10*3/uL Normal 150-450 [facility] Comment on above: Performed By: #### C BC, BMP, LIPASE, TSH3, HEPATIC #### [address] RBC (Bld) [#/Vol] 4.46 10*6/uL Normal 3.60-5.00 [facility] Comment on above: Performed By: #### C BC, BMP, LIPASE, TSH3, HEPATIC #### [address] WBC (Bld) [#/Vol] 7.1 10*3/uL Normal 4.5-11.0 [facility] Comment on above: Performed By: #### C BC, BMP, LIPASE, TSH3, HEPATIC #### [address] Creatinine and Glomerular fi ltration rate.predicted panel (S/P/Bld)Ordered By: Michael Avila on 04-30-2022 Creatinine [Mass/Vol] 0.85 mg/dL 0.44-1.03 [facility] Dipstick and Microscopicon 0 04-30-2022 Appearance (U) Clear Normal Clear [facility] Comment on above: Order Comment: Name Collection Type:: Clean-Voided Midstream Performed By: #### A DDONUAPLUS, UHCG #### [facility] [address] Bacteria,Urine None Seen Normal None Seen [facility] Comment on above: Order Comment: Name Collection Type:: Clean-Voided Midstream Performed By: #### A DDONUAPLUS, UHCG #### [place] [address] [place] Bilirubin,Urine Negative Normal Negative [facility] Comment on above: Order Comment: Name Collection Type:: Clean-Voided Midstream Performed By: #### A DDONUAPLUS, UHCG #### [place] [address] [place] Color (U) Dark Yellow Critically abnormal Yellow [facility] Comment on above: Order Comment: Name Collection Type:: Clean-Voided Midstream Performed By: #### A DDONUAPLUS, UHCG #### [address] Glucose Ql (U) Normal Normal Normal [facility] Comment on above: Order Comment: Name Collection Type:: Clean-Voided Midstream Performed By: #### A DDONUAPLUS, UHCG #### [facility] [address] [place] [address] [place] Hyaline Casts,Urine 9-19 High 0-8 [facility] Comment on above: Order Comment: Name Collection Type:: Clean-Voided Midstream Performed By: #### A DDONUAPLUS, UHCG #### [place] [address] [place] Ketones Ql (U) Negative Normal Negative [facility] Comment on above: Order Comment: Name Collection Type:: Clean-Voided Midstream Performed By: #### A DDONUAPLUS, UHCG #### [address] [address] [place] Leukocyte esterase Test strip Ql (U) Negative Normal Negative [facility] Comment on above: Order Comment: Name Collection Type:: Clean-Voided Midstream Performed By: #### A DDONUAPLUS, UHCG #### [facility] [address] [place] [address] [place] Nitrite,Urine Negative Normal Negative [facility] Comment on above: Order Comment: Name Collection Type:: Clean-Voided Midstream Performed By: #### A DDONUAPLUS, UHCG #### [address] Occult Blood,Urine Negative Normal Negative [facility] Comment on above: Order Comment: Name Collection Type:: Clean-Voided Midstream Performed By: #### A DDONUAPLUS, UHCG #### [address] pH (U) 6.5 [pH] Normal 5.0-9.0 [facility] Comment on above: Order Comment: Name Collection Type:: Clean-Voided Midstream Performed By: #### A DDONUAPLUS, UHCG #### [facility] [address] [place] [address] Protein (U) [Mass/Vol] 30 mg/dL High Negative [facility] Comment on above: Order Comment: Name Collection Type:: Clean-Voided Midstream Performed By: #### A DDONUAPLUS, UHCG #### [facility] [address] [place] [address] [place] RBC,Urine 3-4 Normal 0-4 [facility] Comment on above: Order Comment: Name Collection Type:: Clean-Voided Midstream Performed By: #### A DDONUAPLUS, UHCG #### [facility] [address] [place] [address] [place] Renal Epithelial Cells,Urine None Seen Normal 0-1 [facility] Comment on above: Order Comment: Name Collection Type:: Clean-Voided Midstream Performed By: #### A DDONUAPLUS, UHCG #### [address] [place] [address] [place] Specificy [place],Urine 1.021 Normal 1.001-1.030 [facility] Comment on above: Order Comment: Name Collection Type:: Clean-Voided Midstream Performed By: #### A DDONUAPLUS, UHCG #### [facility] [address] Squamous Epithelial Cell,Urine 3-4 High 0-2 [facility] Comment on above: Order Comment: Name Collection Type:: Clean-Voided Midstream Performed By: #### A DDONUAPLUS, UHCG #### [address] Urobilinogen,Urine Normal Normal Normal [facility] Comment on above: Order Comment: Name Collection Type:: Clean-Voided Midstream Performed By: #### A DDONUAPLUS, UHCG #### [address] WBC,Urine 3-4 Normal 0-4 [facility] Comment on above: Order Comment: Name Collection Type:: Clean-Voided Midstream Performed By: #### A DDONUAPLUS, UHCG #### [address] Direct bilirubin measurement Ordered By: Michael Avila on 04-30-2022 Bilirubin.direct [Mass/Vol] 0.4 mg/dL 0.0-0.4 [facility] Eosinophils Auto (Bld) [#/Vo l]Ordered By: Michael Avila on 04-30-2022 Eosinophils (Bld) [#/Vol] 0.1 10*3/uL 0.0-0.45 [facility] Eosinophils/100 WBC Auto (Bl d)Ordered By: Michael Avila on 04-30-2022 Eosinophils/100 WBC (Bld) 1.9 % [facility] Erythrocyte distribution wid th Auto (RBC) [Ratio]Ordered By: Michael Avila on 04-30-2022 Erythrocyte distribution width (RBC) [Ratio] 15.3 % 11.9-15.3 [facility] Estimated glomerular filtrat ion rate (GFR) non- AmericanOrdered By: Michael Avila on 04-30-2022 GFR/1.73 sq M.predicted among non-blacks MDRD (S/P/Bld) [Vol rate/Area] > 60 mL/Min [facility] Globulin Calc (S) [Mass/Vol] Ordered By: Michael Avila on 04-30-2022 Globulin (S) [Mass/Vol] 3.2 g/dL [facility] HCG ( test) IA.rapi d Ql (U)Ordered By: Michael Avila on 04-30-2022 HCG ( test) Ql (U) Negative [facility] HCG,Urineon 04-30-2022 Beta HCG ( test) Ql (U) Negative Normal [facility] Comment on above: Order Comment: Name Collection Type:: Clean-Voided Midstream Result Comment: PERF ORMED BY: [place] [address] PATHOLOGIST ASSISTANT MANAGER BILINGUAL YANETH CEDILLO M.D. Performed By: #### A DDONUANETTIE, [facility] #### [address] Hematocrit Auto (Bld) [Volum e fraction]Ordered By: Michael Avila on 04-30-2022 Hematocrit (Bld) [Volume fraction] 44.8 % 34.0-46.4 [facility] Hepatic Panelon 04-30-2022 Albumin [Mass/Vol] 3.4 g/dL Normal 3.2-5.5 [facility] Comment on above: Performed By: #### C BC, BMP, LIPASE, TSH3, HEPATIC #### [facility] [address] [place] [address] Albumin/Globulin [Mass ratio] 1.1 {ratio} Normal [facility] Comment on above: Performed By: #### C BC, BMP, LIPASE, TSH3, HEPATIC #### [facility] [address] ALP [Catalytic activity/Vol] 111 U/L High 32-92 [facility] Comment on above: Performed By: #### C BC, BMP, LIPASE, TSH3, HEPATIC #### [facility] [address] [place] [id number] [place] ALT [Catalytic activity/Vol] 48 U/L Normal 10-60 [facility] Comment on above: Performed By: #### C BC, BMP, LIPASE, TSH3, HEPATIC #### [facility] [address] [place] [id number] [place] AST [Catalytic activity/Vol] 94 U/L High 10-42 [facility] Comment on above: Performed By: #### C BC, BMP, LIPASE, TSH3, HEPATIC #### [facility] [address] [place] [address] [place] Bilirubin [Mass/Vol] 1.7 mg/dL High 0.3-1.2 [facility] Comment on above: Result Comment: Samp les from patients who have taken Naproxen have shown spurious elevation in Total Bilirubin levels. A metabolite of Naproxen, O-desmethylnaproxen, has been shown to interfere with the Jendrassik-Grof method for measuring Total Bilirubin. Performed By: #### C BC, BMP, LIPASE, TSH3, HEPATIC #### [facility] [address] Bilirubin,Indirect 1.3 mg/dL Normal [facility] Comment on above: Performed By: #### C BC, BMP, LIPASE, TSH3, HEPATIC #### [facility] [address] [place] [address] [place] Bilirubin.indirect [Mass/Vol] 0.4 mg/dL Normal 0.0-0.4 [facility] Comment on above: Performed By: #### C BC, BMP, LIPASE, TSH3, HEPATIC #### [facility] [address] [place] [address] [place] Globulin (S) [Mass/Vol] 3.2 g/dL Normal [facility] Comment on above: Performed By: #### C BC, BMP, LIPASE, TSH3, HEPATIC #### [facility] [address] Protein [Mass/Vol] 6.6 g/dL Normal 6.1-7.9 [facility] Comment on above: Result Comment: Spec imen lipemic. Specimen Ultracentrifuged before testing. Performed By: #### C BC, BMP, LIPASE, TSH3, HEPATIC #### [facility] [address] [place] [address] [place] Ketones Auto test strip (U) [Mass/Vol]Ordered By: Michael Avila on 04-30-2022 Ketones (U) [Mass/Vol] Negative Negative [facility] Laboratory - Chemistry and C hemistry - challengeOrdered By: Michael Avila on 04-30-2022 Lipase [Catalytic activity/Vol] 24.0 U/L [facility] Comment on above: Specimen lipemic. Specimen Ultracentrifuged before testing. Laboratory - Hematology and Cell countsOrdered By: Michael Avila on 04-30-2022 Nucleated RBC/100 WBC (Bld) [Ratio] 0.0 % 0-0.5 [facility] Laboratory - UrinalysisOrder ed By: Michael Avila on 04-30-2022 Hyaline casts LM Ql (Urine sed) 9-19 [LPF] [facility] Lipaseon 04-30-2022 Lipase [Catalytic activity/Vol] 24.0 U/L Normal [facility] Comment on above: Result Comment: Spec imen lipemic. Specimen Ultracentrifuged before testing. Performed By: #### C BC, BMP, LIPASE, TSH3, HEPATIC #### [facility] [address] Lymphocytes Auto (Bld) [#/Vo l]Ordered By: Michael Avila on 04-30-2022 Lymphocytes (Bld) [#/Vol] 1.5 10*3/uL 1.00-4.8 [facility] Lymphocytes/100 WBC Auto (Bl d)Ordered By: Michael Avila on 04-30-2022 Lymphocytes/100 WBC (Bld) 21.1 % [facility] MCH Auto (RBC) [Entitic mass ]Ordered By: Michael Avila on 04-30-2022 MCH (RBC) [Entitic mass] 34.6 pg 24.7-34.3 [facility] MCHC Auto (RBC) [Mass/Vol]Or dered By: Michael Avila on 04-30-2022 MCHC (RBC) [Mass/Vol] 34.4 g/dL 32.0-35.0 [facility] MCV Auto (RBC) [Entitic vol] Ordered By: Michael Avila on 04-30-2022 MCV (RBC) [Entitic vol] 100.6 fL 80-100 [facility] Monocytes Auto (Bld) [#/Vol] Ordered By: Michael Avila on 04-30-2022 Monocytes (Bld) [#/Vol] 0.7 10*3/uL 0.0-0.8 [facility] Monocytes/100 WBC Auto (Bld) Ordered By: Michael Avila on 04-30-2022 Monocytes/100 WBC (Bld) 9.5 % [facility] Neutrophils Auto (Bld) [#/Vo l]Ordered By: Michael Avila on 04-30-2022 Neutrophils (Bld) [#/Vol] 4.8 10*3/uL 1.8-7.7 [facility] Neutrophils/100 WBC Auto (Bl d)Ordered By: Michael Avila on 04-30-2022 Neutrophils/100 WBC (Bld) 67.0 % [facility] Nitrite Test strip Ql (U)Ord ered By: Michael Avila on 04-30-2022 Nitrite Ql (U) Negative Negative [facility] No Panel InformationOrdered By: Michael Avila on 04-30-2022 Estimated GFR () > 60 mL/Min [facility] Comment on above: GFR estimated refere nce range: According to KDOQI guidelines, <60 ml/min/1.73m2 is sufficient to diagnose a patient with chronic kidney disease. Pharmacy Creatinine Clearance (Chem 68.37 [facility] Platelet mean volume Auto (B ld) [Entitic vol]Ordered By: Michael Avila on 04-30-2022 Platelet mean volume (Bld) [Entitic vol] 8.0 fL 6.3-10.7 [facility] Platelets Auto (Bld) [#/Vol] Ordered By: Michael Avila on 04-30-2022 Platelets (Bld) [#/Vol] 336 10*3/uL 150-450 [facility] Protein Auto test strip (U) [Mass/Vol]Ordered By: Michael Avila on 04-30-2022 Protein (U) [Mass/Vol] 30 mg/dL Negative [facility] Protein [Mass/volume] in Ser um or PlasmaOrdered By: Michael Avila on 04-30-2022 Protein [Mass/Vol] 6.6 g/dL 6.1-7.9 [facility] Comment on above: Specimen lipemic. Specimen Ultracentrifuged before testing. RBC Auto (Bld) [#/Vol]Ordere d By: Michael Avila on 04-30-2022 RBC (Bld) [#/Vol] 4.46 10*6/uL 3.60-5.00 [facility] Serum or plasma alanine palacio otransferase measurement without P-5'-P (enzymatic activiOrdered By: Michael Avila on 04-30-2022 ALT No additional P-5'-P [Catalytic activity/Vol] 48 U/L 10-60 [facility] Serum or plasma albumin/glob ulin mass ratioOrdered By: Michael Avila on 04-30-2022 Albumin/Globulin [Mass ratio] 1.1 {ratio} [facility] Serum or plasma alkaline heena sphatase measurement (enzymatic activity/volume)Ordered By: Michael Avila on 04-30-2022 ALP [Catalytic activity/Vol] 111 U/L 32-92 [facility] Serum or plasma aspartate am inotransferase measurement (enzymatic activity/volume)Ordered By: Michael Avila on 04-30-2022 AST [Catalytic activity/Vol] 94 U/L 10-42 [facility] Serum or plasma calcium judy urement (mass/volume)Ordered By: Michael Avila on 04-30-2022 Calcium [Mass/Vol] 9.0 mg/dL 8.2-10.2 [facility] Serum or plasma chloride angeline surement (moles/volume)Ordered By: Michael Avila on 04-30-2022 Chloride [Moles/Vol] 99 mmol/L 95-114 [facility] Serum or plasma glucose judy urement (mass/volume)Ordered By: Michael Avila on 04-30-2022 Glucose [Mass/Vol] 114 mg/dL 70-100 [facility] Comment on above: ADA recommended refe rence range Random Glucose Reference Range is dependent on time and content of last meal. Glucose of more than 200 mg/dL in a nonstressed, ambulatory subject supports the diagnosis of Diabetes Mellitus. Serum or plasma non-glucuron idated bilirubin measurement (mass/volume)Ordered By: Michael Avila on 04-30-2022 Bilirubin.indirect [Mass/Vol] 1.3 mg/dL [facility] Serum or plasma potassium me asurement (moles/volume)Ordered By: Michael Avila on 04-30-2022 Potassium [Moles/Vol] 3.7 mmol/L 3.5-5.1 [facility] Serum or plasma sodium measu rement (moles/volume)Ordered By: Michael Avila on 04-30-2022 Sodium [Moles/Vol] 136 mmol/L 136-146 [facility] Serum or plasma total biliru bin measurement (mass/volume)Ordered By: Michael Avila on 04-30-2022 Bilirubin [Mass/Vol] 1.7 mg/dL 0.3-1.2 [facility] Comment on above: Samples from patient s who have taken Naproxen have shown spurious elevation in Total Bilirubin levels. A metabolite of Naproxen, O-desmethylnaproxen, has been shown to interfere with the Ifeanyi-Manjeet method for measuring Total Bilirubin. Serum or plasma total carbon dioxide measurement (moles/volume)Ordered By: Michael Avila on 04-30-2022 CO2 [Moles/Vol] 22.8 mmol/L 22.0-30.0 [facility] Serum or plasma urea nitroge n measurement (mass/volume)Ordered By: Michael Avila on 04-30-2022 Urea nitrogen [Mass/Vol] 7 mg/dL 07-31 [facility] Specific gravity Auto test s trip (U) [Rel density]Ordered By: Michael Avila on 04-30-2022 Specific gravity (U) [Rel density] 1.021 1.001-1.030 [facility] Squamous epithelial cells de tection in urine sediment by light microscopyOrdered By: Michael Avila on 04-30-2022 Epithelial cells.squamous LM Ql (Urine sed) 3-4 [HPF] [facility] TSH DL <= 0.005 mIU/L QnOrde red By: Michael Avila on 04-30-2022 TSH Qn 9.77 m[IU]/L 0.45-5.33 [facility] Thyroid Stimulating Hormoneo n 04-30-2022 TSH Qn 9.77 m[IU]/L High 0.45-5.33 [facility] Comment on above: Result Comment: PERF ORMED BY: [facility] [address] [place] [address] PATHOLOGIST ASSISTANT MANAGER BILINGUAL YANETH CEDILLO M.D. Performed By: #### C BC, BMP, LIPASE, TSH3, HEPATIC #### [facility] [address] Urine bacteria detection by automated methodOrdered By: Michael Avila on 04-30-2022 Bacteria Auto Ql (U) None seen None Seen [facility] Urine clarity by refractomet ry automatedOrdered By: Michael Avila on 04-30-2022 Clarity Refractometry automated (U) Clear Clear [facility] Urine glucose measurement by automated test strip (mass/volume)Ordered By: Michael Avila on 04-30-2022 Glucose Auto test strip (U) [Mass/Vol] Normal mg/dL Normal [facility] Urine hemoglobin detection b y automated test stripOrdered By: Michael Avila on 04-30-2022 Hemoglobin Auto test strip Ql (U) Negative Negative [facility] Urine leukocyte esterase det ection by automated test stripOrdered By: Michael Avila on 04-30-2022 Leukocyte esterase Auto test strip Ql (U) Negative Negative [facility] Urine sediment renal epithel ial cell count by microscopy (number/high power field)Ordered By: Michael Avila on 04-30-2022 Epithelial cells.renal LM.HPF (Urine sed) [#/Area] None seen [HPF] [facility] Urobilinogen Auto test strip (U) [Mass/Vol]Ordered By: Michael Avila on 04-30-2022 Urobilinogen (U) [Mass/Vol] Normal mg/dL Normal [facility] pH Auto test strip (U)Ordere d By: Michael Avila on 04-30-2022 pH (U) 6.5 [pH] 5.0-9.0 [facility] XR CHEST 2 Von 03-24-2022 XR CHEST [...] INGRIS MONDRAGON Date: 2022-03-24 12:56 Normal [facility] AMMONIAon 02-22-2022 Ammonia (P) [Moles/Vol] 32 umol/L Normal 11-32 [facility] Comment on above: Performed By: #### C BC #### [facility] [address] [place] [address] Dr. Jacqueline Mays CBC AUTO DIFFon 02-22-2022 BASO # 0.1 103/ul Normal 0.0-0.1 [facility] Comment on above: Performed By: #### C BC #### [facility] [address] [place] [address] Dr. Jacqueline Mays Basophils/100 WBC (Bld) 0.9 % Normal 0.2-2.0 [facility] Comment on above: Performed By: #### C BC #### [facility] [address] [place] [address] Dr. Jacqueline Mays EO # 0.0 103/ul Normal 0.0-0.7 [facility] Comment on above: Performed By: #### C BC #### [facility] [address] [address] [address] Jacqueline Mays Eosinophils/100 WBC (Bld) 0.8 % Critically low 0.9-7.0 [facility] Comment on above: Performed By: #### C BC #### [facility] [address] [place] [address] Dr. Jacqueline Mays Erythrocyte distribution width (RBC) [Ratio] 14.5 % Normal 11.0-15.0 [facility] Comment on above: Performed By: #### C BC #### [facility] [address] [place] [address] Dr. Jacqueline Mays Hematocrit (Bld) [Volume fraction] 39.8 % Normal 36.0-48.0 [facility] Comment on above: Performed By: #### C BC #### [facility] [address] [place] [address] Dr. Jacqueline Mays Hemoglobin (Bld) [Mass/Vol] 13.8 g/dL Normal 12.0-16.0 [facility] Comment on above: Performed By: #### C BC #### [facility] [address] [place] [address] Dr. Jacqueline Mays IG # 0.02 10e3/ul Normal 0.00-0.03 [facility] Comment on above: Performed By: #### C BC #### [facility] [address] [place] [address] Dr. Jacqueline Mays IG % 0.4 % Normal 0.0-0.5 [facility] Comment on above: Performed By: #### C BC #### [facility] [address] [place] [address] Dr. Jacqueline Mays LYMPH # 1.8 103/ul Normal 1.2-3.8 [facility] Comment on above: Performed By: #### C BC #### [facility] [address] [place] [address] Dr. Jacqueline Mays Lymphocytes/100 WBC (Bld) 33.0 % Normal 20.5-60.0 [facility] Comment on above: Performed By: #### C BC #### [facility] [address] [place] [address] Dr. Jacqueline Mays MANUAL DIFF REQ NO Normal [facility] Comment on above: Performed By: #### C BC #### [facility] [address] [place] [address] Dr. Jacqueline Mays MCH (RBC) [Entitic mass] 33.4 pg Normal 26.7-34.0 [facility] Comment on above: Performed By: #### C BC #### [facility] [address] [address] [address] Jacqueline Mays MCHC (RBC) [Mass/Vol] 34.7 g/dL Normal 29.9-35.2 [facility] Comment on above: Performed By: #### C BC #### [facility] [address] [place] [address] Dr. Jacqueline Mays MCV (RBC) [Entitic vol] 96.4 fL Normal 81.0-99.0 [facility] Comment on above: Performed By: #### C BC #### [facility] [address] [place] [address] Dr. Jacqueline Mays MONO # 0.4 103/ul Normal 0.3-0.8 [facility] Comment on above: Performed By: #### C BC #### [facility] [address] [place] [address] Dr. Jacqueline Mays Monocytes/100 WBC (Bld) 6.8 % Normal 1.7-12.0 [facility] Comment on above: Performed By: #### C BC #### [facility] [address] [place] [address] Dr. Jacqueline Mays NEUT # 3.1 103/ul Normal 1.4-6.5 [facility] Comment on above: Performed By: #### C BC #### [facility] [address] [place] [address] Dr. Jacqueline Mays Neutrophils/100 WBC (Bld) 58.1 % Normal 43.0-75.0 [facility] Comment on above: Performed By: #### C BC #### [facility] [address] [place] [address] Dr. Jacqueline Mays Platelet mean volume (Bld) [Entitic vol] 9.3 fL Critically low 9.5-13.5 [facility] Comment on above: Performed By: #### C BC #### [facility] [address] [place] [address] Dr. Jacqueline Mays PLT 296 103/ul Normal 150-450 [facility] Comment on above: Performed By: #### C BC #### [facility] [address] [address] [address] Jacqueline Mays RBC 4.13 106/ul Critically low 4.20-5.40 [facility] Comment on above: Performed By: #### C BC #### [facility] [address] [place], [place] [address] Dr. Jacqueline Mays WBC 5.3 103/ul Normal 4.0-11.0 [facility] Comment on above: Performed By: #### C BC #### [facility] [address] [address] [address] Jacqueline Mays Covid-19 PCR ([facility])on 02-06 SARS-CoV-2 (COVID-19) RNA JAS+probe Ql (Unsp spec) Not detected Normal NOT DETECTED [facility] Comment on above: Result Comment: When [...] for this test is supported by the [place] of Health and Human Service's declaration that [...] used). Performed By: #### C BC #### [facility] [address] [place], [place] [id number] Dr. Jacqueline Mays ER URINE PROFILEon 2 Bilirubin Ql (U) Negative Normal NEGATIVE [facility] Comment on above: Performed By: #### C BC #### [facility] [address] [place], [place] [id number] Dr. Jacqueline Mays Clarity (U) CLEAR Normal CLEAR [facility] Comment on above: Performed By: #### C BC #### [facility] [address] [place] [address] Dr. Jacqueline Mays Color (U) YELLOW Normal YELLOW [facility] Comment on above: Performed By: #### C BC #### [facility] [address] [place] [address] Dr. Jacqueline CELAYA A micrscopic examination will be performed if indicated. Normal [facility] Comment on above: Performed By: #### C BC #### [facility] [address] [place] [address] Dr. Jacqueline Mays Glucose Ql (U) Negative Normal NEGATIVE [facility] Comment on above: Performed By: #### C BC #### [facility] [address] [place] [address] Dr. Jacqueline Mays Hemoglobin Ql (U) Negative Normal NEGATIVE [facility] Comment on above: Performed By: #### C BC #### [facility] [address] [place] [address] Dr. Jacqueline Mays Ketones Ql (U) Negative Normal NEGATIVE [facility] Comment on above: Performed By: #### C BC #### [facility] [address] [place] [address] Dr. Jacqueline Mays LEUKOCYTES Negative Normal NEGATIVE [facility] Comment on above: Performed By: #### C BC #### [facility] [address] [place] [address] Dr. Jacqueline Mays Nitrite Ql (U) Negative Normal NEGATIVE [facility] Comment on above: Performed By: #### C BC #### [facility] [address] [place] [address] Dr. Jacqueline Mays pH (U) 7.0 [pH] Normal 5-9 [facility] Comment on above: Performed By: #### C BC #### [facility] [address] [place] [address] Dr. Jacqueline Mays SPEC GRAVITY 1.010 Normal 1.005-<=1.02 5 [facility] Comment on above: Performed By: #### C BC #### [facility] [address] [place] [address] Dr. Jacqueline Mays UA PROTEIN Negative Normal NEGATIVE/ TRACE [facility] Comment on above: Performed By: #### C BC #### [facility] [address] [place] [address] Dr. Jacqueline Mays UR MICRO IND NOT INDICATED Normal [facility] Comment on above: Performed By: #### C BC #### [facility] [address] [place] [address] Dr. Jacqueline Mays Urobilinogen Qn (U) 0.2 {Tristan'U}/dL Normal 0.2 - 1. 0 [facility] Comment on above: Performed By: #### C BC #### [facility] [address] [place] [address] Dr. Jacqueline Mays ETHANOL (BLD ALC)on 02-23-20 22 ALC NOTE NOTE: 80 mg/dl is th e legal limit for a blood alcohol level Normal [facility] Comment on above: Performed By: #### C BC #### [facility] [address] [place] [address] Dr. Jacqueline Mays Ethanol [Mass/Vol] 32 mg/dL Normal [facility] Comment on above: Performed By: #### C BC #### [facility] [address] [place] [address] Dr. Jacqueline Mays INFLUENZA A AND B AGon 02-22 INFLUENZA A AG Negative Normal NEGATIVE SEE COMMENT [facility] Comment on above: Performed By: #### I NFLUAB #### [facility] [address] [place] [address] Dr. Jacqueline Mays INFLUENZA B AG Negative Normal NEGATIVE SEE COMMENT [facility] Comment on above: Performed By: #### I NFLUAB #### [facility] [address] [place] [address] Dr. Jacqueline Mays INTERNAL CONTROLS Within Normal Limits Normal Wi thin Normal Limits [facility] Comment on above: Performed By: #### I NFLUAB #### [facility] [address] [place] [address] Dr. Jacqueline Mays LIPASEon 04-17-2022 Lipase [Catalytic activity/Vol] 104.0 U/L Normal 23.0-300.0 [facility] Comment on above: Performed By: #### H STROPN, LIPA, CMP #### [facility] [address] [address] [address] Jacqueline Mays MAGNESIUMon 02-22-2022 Magnesium [Mass/Vol] 1.8 mg/dL Normal 1.6-2.3 [facility] Comment on above: Performed By: #### M G #### [facility] [address] [address] [address] Jacqueline Mays PROF 14(COMP METB)on 022 Albumin [Mass/Vol] 3.4 g/dL Normal 3.4-5.0 [facility] Comment on above: Performed By: #### H STROPN, LIPA, CMP #### [facility] [address] [place] [address] Dr. Jacqueline Mays Albumin/Globulin [Mass ratio] 1.0 {ratio} Normal [facility] Comment on above: Performed By: #### H STROPN, LIPA, CMP #### [facility] [address] [address] [address] Jacqueline Mays ALP [Catalytic activity/Vol] 116 U/L Normal 46-116 [facility] Comment on above: Performed By: #### H STROPN, LIPA, CMP #### [facility] [address] [address] [address] Jacqueline Mays ALT [Catalytic activity/Vol] 66 U/L Critically high 14-59 [facility] Comment on above: Performed By: #### H STROPN, LIPA, CMP #### [facility] [address] [address] [address] Jacqueline Mays Anion gap [Moles/Vol] 16.1 mmol/L Normal [facility] Comment on above: Performed By: #### H STROPN, LIPA, CMP #### [facility] [address] [address] [address] Jacqueline Mays AST [Catalytic activity/Vol] 79 U/L Critically high 15-37 [facility] Comment on above: Performed By: #### H STROPN, LIPA, CMP #### [facility] [address] [address] [address] Jacqueline Mays Bilirubin [Mass/Vol] 0.9 mg/dL Normal 0.2-1.3 [facility] Comment on above: Performed By: #### H STROPN, LIPA, CMP #### [facility] [address] [address] [address] Jacqueline Mays Calcium [Mass/Vol] 8.2 mg/dL Critically low 8.5-10.1 [facility] Comment on above: Performed By: #### H STROPN, LIPA, CMP #### [facility] [address] [place] [address] Dr. Jacqueline Mays Chloride [Moles/Vol] 101 mmol/L Normal 98-107 [facility] Comment on above: Performed By: #### H STROPN, LIPA, CMP #### [facility] [address] [address] [address] Jacqueline Mays CO2 [Moles/Vol] 24.7 mmol/L Normal 22.0-30.0 [facility] Comment on above: Performed By: #### H STROPN, LIPA, CMP #### [facility] [address] [place] [address] Dr. Jacqueline Mays Creatinine [Mass/Vol] 0.68 mg/dL Normal 0.52-1.04 [facility] Comment on above: Performed By: #### H STROPN, LIPA, CMP #### [facility] [address] [place] [address] Dr. Jacqueline Mays EGFR-AF JAPANESE >60 Normal >=60 [facility] Comment on above: Performed By: #### H STROPN, LIPA, CMP #### [facility] [address] [place] [address] Dr. Jacqueline Mays EGFR-NON AF JAPANESE >60 Normal >=60 [facility] Comment on above: Performed By: #### H STROPN, LIPA, CMP #### [facility] [address] [place] [address] Dr. Jacqueline Mays Globulin (S) [Mass/Vol] 3.4 g/dL Normal [facility] Comment on above: Performed By: #### H JAYLA LIPA, CMP #### [facility] [address] [address] [address] Jacqueline Mays Glucose [Mass/Vol] 146 mg/dL Critically high 74-106 T [facility] Comment on above: Performed By: #### H JAYLA LIPA, CMP #### [facility] [address] [address] [address] Jacqueline Mays Potassium [Moles/Vol] 2.8 mmol/L Critically low 3.4-5.0 [facility] Comment on above: Performed By: #### H JAYLA LIPA, CMP #### [facility] [address] [address] [address] Jacqueline Mays Protein [Mass/Vol] 6.8 g/dL Normal 6.1-8.2 [facility] Comment on above: Performed By: #### H STROJOSE LUIS, LIPA, CMP #### [facility] [address] [address] [address] Jacqueline Mays Sodium [Moles/Vol] 139 mmol/L Normal 137-145 [facility] Comment on above: Performed By: #### H JAYLA, LIPA, CMP #### [facility] [address] [address] [address] Jacqueline Mays Urea nitrogen [Mass/Vol] 6.0 mg/dL Critically low 7.0-18.0 [facility] Comment on above: Performed By: #### H STROPN, LIPA, CMP #### [facility] [address] [address] [address] Jacqueline Mays Urea nitrogen/Creatinine [Mass ratio] 8.8 mg/mg Normal [facility] Comment on above: Performed By: #### H STROPN, LIPA, CMP #### [facility] [address] [address] [address] Jacqueline Mays PROTIMEon 02-22-2022 INR Coag (PPP) [Relative time] 1.04 {INR} Normal [facility] Comment on above: Performed By: #### P TT, PT #### [facility] [address] [address] [address] Jacqueline Mays INR GUIDELINES SEE BELOW Normal [facility] Comment on above: Result Comment: ILAN RED INR: 2.0 - 3.0 CONDITIONS NOT LISTED BELOW 2.5 - 3.5 FOR PROSTHETIC HEART VALVE REPLACEMENT 2.5 - 3.5 RECURRENT THROMBOSIS Performed By: #### P TT, PT #### [facility] [address] [address] [address] Jacqueline Mays PT Coag (PPP) [Time] 11.2 s Normal 9.0-11.6 [facility] Comment on above: Performed By: #### P TT, PT #### [facility] [address] [place] [address] Dr. Jacqueline Mays PTTon 02-22-2022 aPTT Coag (Bld) [Time] 24.0 s Normal 22.3-36.2 [facility] Comment on above: Performed By: #### P TT, PT #### [facility] [address] [address] [address] Jacqueline Mays TROPONIN, HIGH SENSITIVITYon 02-22-2022 HSTROP 6.2 pg/mL Normal 4.0-35.5 [facility] Comment on above: Result Comment: CUT- OFF POINTS HAVE BEEN ESTABLISHED BASED ON THE FOURTH UNIVERSAL DEFINITIONS OF MYOCARDIAL INFARCTION. THE UPPER REFERENCE LIMIT (URL) OF TROPONIN, DEFINED THE 99TH PERCENTILE OF cTnI DISTRIBUTION IN A REFERENCE POPULATION, HAS BEEN CONFIRMED THE DECISION THRESHOLD FOR MA DIAGNOSIS. Performed By: #### H STROPN, LIPA, CMP #### [facility] [address] [place] [address] Dr. Jacqueline Mays XR ABD FLAT UP_PA [...] LEENA KING Date: 2022-02-22 12:33 Normal [facility] CELIAC ANTIBODIES PROFILEon 11-14-2021 Deamidated Gliadin Abs, IgA 7 units Normal 0-19 [facility] Comment on above: Result Comment: Nega tive 0 - 19 Weak Positive 20 - 30 Moderate to Strong Positive >30 Performed By: #### I NFLUAB #### [facility] [address] [address] [address] Jacqueline Mays Deamidated Gliadin Abs, IgG 2 units Normal 0-19 [facility] Comment on above: Result Comment: Nega tive 0 - 19 Weak Positive 20 - 30 Moderate to Strong Positive >30 Performed By: #### I NFLUAB #### [facility] [address] [address] [address] Jacqueline Mays Endomysial Antibody IgA Negative Normal Negative [facility] Comment on above: Performed By: #### I NFLUAB #### [facility] [address] [address] [address] Jacqueline Mays Immunoglobulin A, Qn, Serum 256 mg/dL Normal 87-352 [facility] Comment on above: Performed By: #### I NFLUAB #### [facility] [address] [address] [address] Jacqueline Mays t-Transglutaminase (tTG) IgA <2 Normal 0-3 [facility] Comment on above: Result Comment: Nega tive 0 - 3 Weak Positive 4 - 10 Positive >10 . Tissue Transglutaminase (tTG) has been identified as the endomysial antigen. Studies have demonstr- ated that endomysial IgA antibodies have over 99% specificity for gluten sensitive enteropathy. Performed By: #### I NFLUAB #### [facility] [address] [address] [address] Jacqueline Mays t-Transglutaminase (tTG) IgG <2 Normal 0-5 [facility] Comment on above: Result Comment: Nega tive 0 - 5 Weak Positive 6 - 9 Positive >9 Performed By: #### I NFLUAB #### [facility] [address] [place] [address] Dr. Jacqueline Mays KENZIE DIRECTon 11-13-2021 KENZIE Direct Negative Normal Negative [facility] Comment on above: Performed By: #### C BC #### [facility] [address] [place] [address] Dr. Jacqueline Mays KENZIE by IFAon 11-13-2021 Antinuclear Antibodies, IFA Negative Normal [facility] Comment on above: Result Comment: Nega tive <1:80 Borderline 1:80 Positive >1:80 ICAP nomenclature: AC-0 For more information about Hep-2 cell patterns use ANApatterns.org, the official website for the International Consensus on Antinuclear Antibody (KENZIE) Patterns (ICAP). Performed By: #### C BC #### [facility] [address] [place] [address] Dr. Jacqueline Mays ANTISTREPTOLYSIN O AB (ASO)o n 11-13-2021 Antistreptolysin O Ab <20.0 Normal 0.0-200.0 [facility] Comment on above: Performed By: #### C BC #### [facility] [address] [place] [address] Dr. Jacqueline Mays C3 and C4 COMPLEMENTon 11-13 Complement C3, Serum 114 mg/dL Normal 82-167 [facility] Comment on above: Performed By: #### C BC #### [facility] [address] [place] [address] Dr. Jacqueline Mays Complement C4, Serum 22 mg/dL Normal 12-38 [facility] Comment on above: Performed By: #### C BC #### [facility] [address] [place] [address] Dr. Jacqueline Mays RHEUMATOID FACTORon 11-13-19 22 RA Latex Turbid. 11.1 IU/mL Normal <14.0 [facility] Comment on above: Performed By: #### I NFLUAB #### [facility] [address] [address] [address] Jacqueline Mays SLE PROFILE Aon 11-13-2021 Anti-DNA (DS) Ab Qn <1 Normal 0-9 [facility] Comment on above: Result Comment: Nega tive <5 Equivocal 5 - 9 Positive >9 Performed By: #### I NFLUAB #### [facility] [address] [address] [address] Jacqueline Mays Antichromatin Antibodies <0.2 Normal 0.0-0.9 [facility] Comment on above: Performed By: #### I NFLUAB #### [facility] [address] [place] [address] Dr. Jacqueline Mays RA Latex Turbid. 10.4 IU/mL Normal <14.0 [facility] Comment on above: Performed By: #### I NFLUAB #### [facility] [address] [place] [address] Dr. Jacqueline Mays PROPERTY OFFICER Antibodies 0.3 AI Normal 0.0-0.9 [facility] Comment on above: Performed By: #### I NFLUAB #### [facility] [address] [address] [address] Jacqueline Mays Sjogren's Anti-SS-A <0.2 Normal 0.0-0.9 [facility] Comment on above: Performed By: #### I NFLUAB #### [facility] [address] [address] [address] Jacqueline Mays Sjogren's Anti-SS-B <0.2 Normal 0.0-0.9 [facility] Comment on above: Performed By: #### I NFLUAB #### [facility] [address] [address] [address] Jacqueline Mays Cain Antibodies <0.2 Normal 0.0-0.9 [facility] Comment on above: Performed By: #### I NFLUAB #### [facility] [facility] [address] [address] [address] Jacqueline Mays AMMONIAon 11-12-2021 Ammonia (P) [Moles/Vol] 19 umol/L Normal 10-30 [facility] Comment on above: Performed By: #### A MM #### [facility] [address] [place] [address] Dr. Jacqueline Mays AMYLASEon 11-12-2021 Amylase [Catalytic activity/Vol] 43 U/L Normal 31-110 [facility] Comment on above: Performed By: #### I NFLUAB #### [facility] [address] [place] [address] Dr. Jacqueline Mays CBC AUTO DIFFon 11-12-2021 BASO # 0.1 103/ul Normal 0.0-0.1 [facility] Comment on above: Performed By: #### C BC #### [facility] [address] [place] [address] Dr. Jacqueline Mays Basophils/100 WBC (Bld) 0.6 % Normal 0.2-2.0 [facility] Comment on above: Performed By: #### C BC #### [facility] [address] [place] [address] Dr. Jacqueline Mays EO # 0.3 103/ul Normal 0.0-0.7 [facility] Comment on above: Performed By: #### C BC #### [facility] [address] [place] [address] Dr. Jacqueline Mays Eosinophils/100 WBC (Bld) 3.1 % Normal 0.9-7.0 [facility] Comment on above: Performed By: #### C BC #### [facility] [address] [place] [address] Dr. Jacqueline Mays Erythrocyte distribution width (RBC) [Ratio] 12.8 % Normal 11.0-15.0 [facility] Comment on above: Performed By: #### C BC #### [facility] [address] [place] [address] Dr. Jacqueline Mays Hematocrit (Bld) [Volume fraction] 48.7 % Critically high 36.0-48.0 [facility] Comment on above: Performed By: #### C BC #### [facility] [address] [place] [address] Dr. Jacqueline Mays Hemoglobin (Bld) [Mass/Vol] 16.5 g/dL Critically high 12.0-16.0 [facility] Comment on above: Performed By: #### C BC #### [facility] [address] [place] [address] Dr. Jacqueline Mays IG # 0.04 10e3/ul Critically high 0.00-0.03 [facility] Comment on above: Performed By: #### C BC #### [facility] [address] [place] [address] Dr. Jacqueline Mays IG % 0.5 % Normal 0.0-0.5 [facility] Comment on above: Performed By: #### C BC #### [facility] [address] [place] [address] Dr. Jacqueline Mays LYMPH # 2.2 103/ul Normal 1.2-3.8 [facility] Comment on above: Performed By: #### C BC #### [facility] [address] [place] [address] Dr. Jacqueline Mays Lymphocytes/100 WBC (Bld) 25.6 % Normal 20.5-60.0 [facility] Comment on above: Performed By: #### C BC #### [facility] [address] [place] [address] Dr. Jacqueline Mays MANUAL DIFF REQ NO Normal [facility] Comment on above: Performed By: #### C BC #### [facility] [address] [place] [address] Dr. Jacqueline Mays MCH (RBC) [Entitic mass] 33.1 pg Normal 26.7-34.0 [facility] Comment on above: Performed By: #### C BC #### [facility] [address] [place] [address] Dr. Jacqueline Mays MCHC (RBC) [Mass/Vol] 33.9 g/dL Normal 29.9-35.2 [facility] Comment on above: Performed By: #### C BC #### [facility] [address] [place] [address] Dr. Jacqueline Mays MCV (RBC) [Entitic vol] 97.8 fL Normal 81.0-99.0 [facility] Comment on above: Performed By: #### C BC #### [facility] [address] [place] [address] Dr. Jacqueline Mays MONO # 0.6 103/ul Normal 0.3-0.8 [facility] Comment on above: Performed By: #### C BC #### [facility] [address] [place] [address] Dr. Jacqueline Mays Monocytes/100 WBC (Bld) 7.0 % Normal 1.7-12.0 [facility] Comment on above: Performed By: #### C BC #### [facility] [address] [place] [address] Dr. Jacqueline Mays NEUT # 5.3 103/ul Normal 1.4-6.5 [facility] Comment on above: Performed By: #### C BC #### [facility] [address] [place] [address] Dr. Jacqueline Mays Neutrophils/100 WBC (Bld) 63.2 % Normal 43.0-75.0 [facility] Comment on above: Performed By: #### C BC #### [facility] [address] [place] [address] Dr. Jacqueline Mays Platelet mean volume (Bld) [Entitic vol] 8.7 fL Critically low 9.5-13.5 [facility] Comment on above: Performed By: #### C BC #### [facility] [address] [place] [address] Dr. Jacqueline Mays PLT 320 103/ul Normal 150-450 [facility] Comment on above: Performed By: #### C BC #### [facility] [address] [place] [address] Dr. Jacqueline Mays RBC 4.98 106/ul Normal 4.20-5.40 [facility] Comment on above: Performed By: #### C BC #### [facility] [address] [place] [address] Dr. Jacqueline Mays WBC 8.4 103/ul Normal 4.0-11.0 [facility] Comment on above: Performed By: #### C BC #### [facility] [address] [place] [address] Dr. Jacqueline Mays CRPon 11-12-2021 CRP [Mass/Vol] mg/L Normal <=1.0 [facility] Comment on above: Performed By: #### I NFLUAB #### [facility] [address] [place] [address] Dr. Jacqueline Mays LIPASEon 11-12-2021 Lipase [Catalytic activity/Vol] 204.0 U/L Normal 23.0-300.0 [facility] Comment on above: Performed By: #### I NFLUAB #### [facility] [address] [place] [address] Dr. Jacqueline Mays PROF 14(COMP METB)on 022 Albumin [Mass/Vol] 3.6 g/dL Normal 3.5-5.0 [facility] Comment on above: Performed By: #### I NFLUAB #### [facility] [address] [place] [address] Dr. Jacqueline Mays Albumin/Globulin [Mass ratio] 0.9 {ratio} Normal [facility] Comment on above: Performed By: #### I NFLUAB #### [facility] [address] [place] [address] Dr. Jacuqeline Mays ALP [Catalytic activity/Vol] 72 U/L Normal 38-126 [facility] Comment on above: Performed By: #### I NFLUAB #### [facility] [address] [place] [address] Dr. Jacqueline Mays ALT [Catalytic activity/Vol] 47 U/L Normal 9-52 [facility] Comment on above: Performed By: #### I NFLUAB #### [facility] [address] [place] [address] Dr. Jacqueline Mays Anion gap [Moles/Vol] 13.9 mmol/L Normal [facility] Comment on above: Performed By: #### I NFLUAB #### [facility] [address] [place] [address] Dr. Jacqueline Mays AST [Catalytic activity/Vol] 38 U/L Critically high 14-36 [facility] Comment on above: Performed By: #### I NFLUAB #### [facility] [address] [place] [address] Dr. Jacqueline Mays Bilirubin [Mass/Vol] 0.9 mg/dL Normal 0.2-1.3 [facility] Comment on above: Performed By: #### I NFLUAB #### [facility] [address] [place] [address] Dr. Jacqueline Mays Calcium [Mass/Vol] 9.7 mg/dL Normal 8.4-10.2 [facility] Comment on above: Performed By: #### I NFLUAB #### [facility] [address] [place] [address] Dr. Jacqueline Mays Chloride [Moles/Vol] 102 mmol/L Normal 98-107 [facility] Comment on above: Performed By: #### I NFLUAB #### [facility] [address] [place] [address] Dr. Jacqueline Mays CO2 [Moles/Vol] 26.9 mmol/L Normal 22.0-30.0 [facility] Comment on above: Performed By: #### I NFLUAB #### [facility] [address] [place] [address] Dr. Jacqueline Mays Creatinine [Mass/Vol] 0.62 mg/dL Normal 0.52-1.04 [facility] Comment on above: Performed By: #### I NFLUAB #### [facility] [address] [place] [address] Dr. Jacqueline Mays EGFR-AF JAPANESE >60 Normal >=60 [facility] Comment on above: Performed By: #### I NFLUAB #### [facility] [address] [place] [address] Dr. Jacqueline Mays EGFR-NON AF JAPANESE >60 Normal >=60 [facility] Comment on above: Performed By: #### I NFLUAB #### [facility] [address] [place] [address] Dr. Jacqueline Mays Globulin (S) [Mass/Vol] 3.8 g/dL Normal [facility] Comment on above: Performed By: #### I NFLUAB #### [facility] [address] [place] [address] Dr. Jacqueline Mays Glucose [Mass/Vol] 109 mg/dL Critically high 74-106 [facility] Comment on above: Performed By: #### I NFLUAB #### [facility] [address] [place] [address] Dr. Jacqueline Mays Potassium [Moles/Vol] 3.8 mmol/L Normal 3.4-5.0 [facility] Comment on above: Performed By: #### I NFLUAB #### [facility] [address] [place] [address] Dr. Jacqueline Mays Protein [Mass/Vol] 7.4 g/dL Normal 6.1-8.2 [facility] Comment on above: Performed By: #### I NFLUAB #### [facility] [address] [place] [address] Dr. Jacqueline Mays Sodium [Moles/Vol] 139 mmol/L Normal 137-145 [facility] Comment on above: Performed By: #### I NFLUAB #### [facility] [address] [place] [address] Dr. Jacqueline Mays Urea nitrogen [Mass/Vol] 7.0 mg/dL Normal 7.0-17.0 [facility] Comment on above: Performed By: #### I NFLUAB #### [facility] [address] [place] [address] Dr. Jacqueline Mays Urea nitrogen/Creatinine [Mass ratio] 11.3 mg/mg Normal [facility] Comment on above: Performed By: #### I NFLUAB #### [facility] [address] [place] [address] Dr. Jacqueline Mays URIC ACID SERUMon 11-12-2021 Urate [Mass/Vol] 4.7 mg/dL Normal 2.5-6.2 [facility] Comment on above: Performed By: #### I NFLUAB #### [facility] [address] [place] [address] Dr. Jacqueline Mays XR hip RT min 2V(w/wo pelvis )*on 06-25-2021 XR hip RT min 2V(w/wo pelvis)* [facility] Main [address] [address] XRay Report Signed Patient: Megha Mcdaniel MR#: [id number] 3 : 1970 Acct:[id number] Age/Sex: 51 / F ADM Date: 06/25/21 Loc: ER Room: Type: [facility] ER Attending Dr: Ordering Provider: Jose Priest [...] Fausto Negro M.D.06/25/2021 8:24 PM Dictation Location: [address] [address] Transcribed By: [facility] 06/25/212023 Dictated By: Fausto Negro II, MD 06/25/212020 Signed By: 06/25/212023 Normal [facility] Vital Signs Date Time Vital Sign Value Performing Clinician Madelini kyle 04-30-2022 11:55-0400 Diastolic blood pressure 70 mm[Hg] MD Kelly Jo Work Phone: [facility] 04-30-2022 11:55-0400 Heart rate 70 /min MD Kelly Jo Work Phone: [facility] 04-30-2022 11:55-0400 Respiratory rate 18 /min MD Kelly Jo Work Phone: [facility] 04-30-2022 11:55-0400 SaO2% (BldA) [Mass fraction] 98 % MD Kelly Jo Work Phone: [facility] 04-30-2022 11:55-0400 Systolic blood pressure 152 mm[Hg] MD Kelly Jo Work Phone: [facility] 04-30-2022 07:53-0400 Body height 162.56 cm MD Kelly Jo Work Phone: [facility] 04-30-2022 07:53-0400 Body mass index (BMI) [Ratio] 24.5 kg/m2 MD Kelly Jo Work Phone: [facility] 04-30-2022 07:53-0400 Body weight 65 kg MD Kelly Jo Work Phone: [facility] 04-30-2022 07:51-0400 Body temperature 97.9 [degF] MD Kelly Jo Work Phone: [facility] Encounters Encounter Date Encounter Type Care Provider Facility Start: 01-11-2024 End: 01-11-2024 ambulatory [facility] Rajiv MARCH [facility] Start: 12-14-2023 Telephone encounter Clem March QA [employer] COORDINATOR Work Phone: [facility] General Surgery Start: 10-12-[address] KELLY JO Facility :[facility] Start: 04-30-[address] KELLY JO Facility :[facility] Start: 04-30-2022 End: 04-30-2022 Emergency department patient visit MD Kelly Jo Work Phone: [facility] Start: 03-24-2022 End: 03-25-[address] KELLY JO Facility:[facility] Start: 02-22-2022 End: 02-22-[address] KELLY JO Facility:[facility] Start: 01-12-[address] KELLY JO Facility :[facility] Start: 11-12-2021 End: 11-13-[address] KELLY JO Facility:[facility] Start: 07-01-2018 End: 07-02-2018 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 Facility:[facility] Procedures Date Procedure Procedure Detail Performing Clinician Start: 01-11-2024 Colonoscopy Colonoscopy CLEM MARCH Start: 05-21-2022 Colonoscopy Clem gates Q[employer]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 Work Phone: Start: 04-30-2022 Computed tomography of abdomen and pelvis with contrast MD Kelly Jo Work Phone: Plan of Treatment Date Care Activity Detail Author Start: 05-21-2027 Screening for malignant neoplasm of colon Colonoscopy [facility] Start: 01-11-2024 End: 01-11-2024 Patient encounter procedure 01/11/2024 10:30 AM EST Office Visit [facility] General Surgery [address] [place] [id number] Clem March, QA TE[employer]MARKETING TRAFFIC COORDINATOR [address] [place] [address] [facility] Start: 07-09-2023 Influenza vaccination Influenza Vaccine [facility] Start: 06-01-2023 Adult BMI Screening Adult BMI Screening [facility] Start: 06-01-2023 Tobacco Screening Tobacco Screening [facility] Start: 01-27-2022 Administration of varicella zoster vaccine Zoster (Shingles) Vaccine (1 of 2) [facility] Start: 01-27-1993 Screening for malignant neoplasm of cervix Pap Smear [facility] Start: 01-27-1991 DTaP,Tdap and Td Vaccines (1 - Tdap) DTaP,Tdap and Td Vaccines (1 - Tdap) [facility] Start: 1984 Depression Screening Depression Screening [facility] Patient Education Colitis (DC) A bdominal Pain, Adult ED [facility] Work Phone: Patient referral [facility] Work Phone: Payers Date Payer Category Payer Private Health Insurance [facility] [id number] 2022-Present [phone] [address] [place] [address] [id number] 2022 Private Health Insurance [id number] 1970 Unknown [id number] 1972 Unknown [id number] [id number] 1972 Unknown [id number]. [id number] 1972 Unknown [id number] [id number] 1972 Unknown [id number] [id number] 1972 Unknown [id number]. [id number] 1972 Unknown [id number]. [id number] 1972 Unknown [id number] 1957 Private Health Insurance [id number] Self-pay [id number] Medicaid [facility] [id number] Self-pay Self Pay [id number] Unknown Social History Date Type Detail Facility Start: [facility]30[facility]2022 [facility] Start: 1970 Sex Assigned At Female F [facility] Start: 05-06-2022 Tobacco smoking stat us [facility]IS Smokes tobacco daily [facility] History of tobacco use Cigarette Smoker P [facility] Start: 04-19-2019 End: 05-06-2022 Cigarettes smoked current (pack per day) - Reported 1 [facility] Start: 05-06-2022 Tobacco use and exposure Smokeless tobacco non-user [facility] Start: 06-01-2022 Alcohol intake Current drinke r of alcohol (finding) [facility] Start: 04-19-2019 End: 06-01-2022 Tobacco use panel [facility] Childcare Unknown [facility] Start: 06-01-2022 Alcohol Comment socially [facility] Start: 1970 Sex Assigned At Not on file P [facility] Note 12-14-2023 Telephone Encounter - Zina [...] appointment on 01/11/2024. documented in this encounter [facility] Telephone encounter Note 12-14-2023 Telephone Encounter - Zina Read - 12/14/2023 1:41 PM EST Note Date & Type Note Facility 12-14-2023 Telephone encount er Note Called Megha regarding the hemorrhoids from Dr. Neri, I was unable to leave a message as her voicemail box is full. [facility] Telephone encounter Note 12-14-2023 Telephone Encounter - Zina Read - 12/14/2023 1:41 PM EST Note Date & Type Note Facility 12-14-2023 Telephone encount er Note Called Megha regarding the referral that our office received, we scheduled her an appointment on 01/11/2024. [facility] Evaluation note Note Date & Type Note Facility Evaluation note No assessment information availa [facility] Work Phone: Instructions Note Date & [...] section and content) DATE CREATED AUTHOR 07/03/[address] [facility] DATE CREATED AUTHOR AUTHOR'S ORGANIZ ATION 05/15/2022 [facility] DATE CREATED AUTHOR AUTHOR'S ORGANIZ ATION 10/12/2022 [facility] DATE CREATED AUTHOR AUTHOR'S ORGANIZ ATION 08/12/2023 [facility] DATE CREATED AUTHOR AUTHOR'S ORGANIZ ATION 01/12/2024 [facility] Care Teams (unrecognized sec tion and content) Team Status: Inactive Member Role Status Dates Kelly Jo MD Primary Care Provider Active Michael Avila DO Emergency Provider Active Team Status: Active Member Role Status Dates Kelly Jo MD Primary Care Provider Active Criminal Court Judge Relationship Specialty Start Date End Date Kelly Jo MD [address] [place] [address] PCP - General Family Medicine 05/19/22 Goals [...] BE BASED ON THE PRIMARY CLINICAL RECORDS. [facility]. provides no warranty or guarantee of the accuracy or completeness of information in this document.
--- NOTE | 2024-12-06 09:27 | US_ITS ---
The [address] [address] Patient Name: MEGHA MCDANIEL MRN: [id number] date: 1970 Sex: F Assigned Patient Location: [place] Current Patient Location: Accession/Order Number: [id number] Exam Date: 12/06/2024 09:30 Report Date: 12/06/2024 11:58 At the request of: KELLY SHAH Procedure: US abdomen complete EXAMINATION: US abdomen complete HISTORY: Abdominal Pain, Moderate Protein Calorie Malnutrition COMPARISON: No relevant comparison available. TECHNIQUE: High resolution sonographic examination of the abdomen was performed. FINDINGS: LIVER: Slightly increased echogenicity suggestive of mild fatty infiltration. PORTAL VEIN: Duplex Doppler demonstrates normal hepatopetal flow pattern with flow velocity averaging 33 cm/s. BILIARY: Contains a 7 mm mobile stone. No wall thickening, free fluid, or abnormal duct dilation. Negative sonographic Bass's sign. PANCREAS: No visible mass, abnormal atrophy, or ductal dilatation. SPLEEN: Normal size and echotexture. KIDNEYS: No mass or obstruction. AORTA/VASCULAR: No aneurysm. OTHER: Negative. US/US abdomen complete IMPRESSION: 1. Cholelithiasis without evidence of acute cholecystitis. 2. Mild fatty infiltration of the liver. Electronically authenticated by: INGRIS MONDRAGON Date: 12/06/2024 11:58
--- NOTE | 2024-12-06 09:27 | CT_ITS ---
[address] [address] Patient Name: MEGHA MCDANIEL MRN: [id number] date: 1970 Sex: F Assigned Patient Location: [place] Current Patient Location: [place] Accession/Order Number: [id number] Exam Date: 12/06/2024 10:12 Report Date: 12/06/2024 10:42 At the request of: KELLY SHAH Procedure: CT lung screening low-dose EXAM: CT lung screening low-dose HISTORY: Nicotine Dependence COMPARISON: The patient had a previous CTA chest examination on 11/19/2016 however the images associated with this examination will not load. TECHNIQUE: Routine CT low dose lung screen examination without intravenous contrast. Dose reduction techniques were achieved by using automated exposure control and/or adjustment of mA and/or kV according to patient size and/or use of iterative reconstruction technique. FINDINGS: Cardiovascular: Previous coronary artery bypass graft surgery. Severe multivessel coronary calcifications. Mild atheromatous calcification at the aortic root. Mild atheromatous calcification thoracic aorta, great vessels off the aortic arch, proximal abdominal aorta and splenic artery. Lung: There is centrilobular emphysema. There is mild peribronchial thickening consistent with acute and/or chronic bronchitis. Mild linear foci of atelectasis within the right middle lobe. Nodules: There are no suspicious masses or nodules within the lung. Lymphadenopathy: There are no pathologically enlarged lymph nodes. Other: The trachea, esophagus and imaged portions of the thyroid gland are unremarkable. Upper abdomen: The liver is fatty infiltrated. Osseous: There are discogenic degenerative changes ranging from mild to severe at numerous levels along the spine. CT/CT lung screening low-dose IMPRESSION: There is centrilobular emphysema and mild peribronchial thickening consistent with acute and/or chronic bronchitis. There are no suspicious masses or nodules within the lungs are pathologically enlarged lymph nodes. Previous coronary artery bypass graft surgery. Atherosclerotic disease as described. The liver is fatty infiltrated. Discogenic degenerative changes ranging from mild to severe at numerous levels along the spine. Lung rads score 1. A low-dose CT lung screen examination in 12 months is recommended. Electronically authenticated by: PRAKASH MEDEL Date: 12/06/2024 10:42
--- NOTE | 2024-12-06 09:27 | US_ITS ---
[address] [address] Patient Name: MEGHA MCDANIEL MRN: [id number] date: 1970 Sex: F Assigned Patient Location: US Current Patient Location: Accession/Order Number: [id number] Exam Date: 12/06/2024 09:30 Report Date: 12/06/2024 12:00 At the request of: KELLY SHAH Procedure: US pelvis w/ transvaginal EXAMINATION: US pelvis w/ transvaginal HISTORY: Pelvic Pain COMPARISON: No relevant comparison available. TECHNIQUE: Transabdominal and/or transvaginal sonographic examination was performed as indicated by examination type. FINDINGS: UTERUS: Normal size and appearance. Nabothian cysts within cervix, 1.0 cm. Uterus size: 6.4 x 3.5 x 3.4 cm ENDOMETRIUM: Normal homogeneous appearance. Endometrial thickness: 2 mm RIGHT OVARY: Not seen. LEFT OVARY: Normal size and appearance. Blood flow present within ovary on color Doppler. . Ovary size: 1.8 x 1.6 x 2.1 cm CUL-DE-SAC: Unremarkable. No significant free fluid. BLADDER: Unremarkable. OTHER: None. US/US pelvis w/ transvaginal IMPRESSION: 1. No abnormal or suspicious findings to account for patient's symptoms. 2. Right ovary could not be identified. Electronically authenticated by: INGRIS MONDRAGON Date: 12/06/2024 12:00
== END 2024-12-06 09:20 | disposition home or self-care (01) ==
PROVIDERS: PCP Family Medicine; Visit Provider Family Medicine
DX: R10.9 Unspecified abdominal pain (principal); E44.0 Moderate protein-calorie malnutrition; F17.210 Nicotine dependence, cigarettes, uncomplicated; R10.2 Pelvic and perineal pain; J43.2 Centrilobular emphysema; K80.20 Calculus of gallbladder without cholecystitis without obstruction
CPT/HCPCS: 71271; 76700; 76830; 76856

== ENCOUNTER 2025-02-07 16:07 | Outpatient (RCR) | payer OTHER, SELFPAY | END 2025-03-01 09:52 | disposition home or self-care (01) | LOC: PT 16:07 | PROVIDERS: PCP Family Medicine; Visit Provider Family Medicine | DX: S76.309D Unspecified injury of muscle, fascia and tendon of the posterior muscle group at thigh level, unspecified thigh, subsequent encounter (principal) | CPT/HCPCS: 97014; 97110; 97161 ==

== ENCOUNTER 2025-05-29 08:58 | Outpatient (OUT) | payer OTHER, SELFPAY ==
--- NOTE | 2025-05-29 09:06 | XR_ITS ---
The [place] [id number] Patient Name: MEGHA MCDANIEL MRN: [id number] date: 1970 Sex: F Assigned Patient Location: [facility] Current Patient Location: [facility] Accession/Order Number: [id number] Exam Date: 05/29/2025 09:56 Report Date: 05/29/2025 10:04 At the request of: KELLY SHAH MD Procedure: XR lumbar spine min 4V LUMBAR SPINE - 4 views CLINICAL HISTORY: Pelvic Pain, Right Leg Pain, Lumbar Radiculopathy COMPARISON: Lumbar spine 10/04/2024 FINDINGS: Vertebral heights appear maintained. Endplate and facet joint degenerative changes with moderate disc space L3-L4 and L2-L3. Findings are similar to the prior study. XR/XR lumbar spine min 4V IMPRESSION: DEGENERATIVE CHANGES INVOLVING THE LUMBAR SPINE WITH MODERATE DISC SPACE NARROWING L2-L3 AND L3-L4 SIMILAR TO THE PRIOR STUDY. Impression dictated by: Juan France Jr. DCynthiaOCynthia 05/29/2025 10:04 AM Dictation Location: [place] [address] Electronically authenticated by: [id number] Y Date: 05/29/2025 10:04
--- NOTE | 2025-05-29 09:06 | XR_ITS ---
The [address] [address] Patient Name: MEGHA MCDANIEL MRN: [id number] date: 1970 Sex: F Assigned Patient Location: [facility] Current Patient Location: [facility] Accession/Order Number: [id number] Exam Date: 05/29/2025 10:04 Report Date: 05/29/2025 10:05 At the request of: KELLY SHAH MD Procedure: XR knee RT 3V Pelvis one view, right knee 3 views. Reason for exam: Chronic right lower back right hip pain radiating down leg. COMPARISON: Pelvis 12/18/2020 FINDINGS: Pelvis: Mild degenerative changes of the hips without acute bony process. Additional degenerative changes seen involving the SI joints and visualized lower lumbar spine. Right knee: No knee joint effusion or acute bony process. Joint spaces appear maintained. XR/XR hip RT 2V w/ pelvis IMPRESSION: Mild degenerative changes of the hips without acute bony process. No acute bony process or significant degenerative change involving the right knee. Impression dictated by: Juan France Jr., D.O. 05/29/2025 10:05 AM Dictation Location: [place] [address] Electronically authenticated by: [id number] Y Date: 05/29/2025 10:05
--- NOTE | 2025-05-29 09:06 | XR_ITS ---
The [address] [address] Patient Name: MEGHA MCDANIEL MRN: [id number] date: 1970 Sex: F Assigned Patient Location: [facility] Current Patient Location: [facility] Accession/Order Number: [id number] Exam Date: 05/29/2025 10:04 Report Date: 05/29/2025 10:05 At the request of: KELLY SHAH MD Procedure: XR knee RT 3V Pelvis one view, right knee 3 views. Reason for exam: Chronic right lower back right hip pain radiating down leg. COMPARISON: Pelvis 12/18/2020 FINDINGS: Pelvis: Mild degenerative changes of the hips without acute bony process. Additional degenerative changes seen involving the SI joints and visualized lower lumbar spine. Right knee: No knee joint effusion or acute bony process. Joint spaces appear maintained. XR/XR knee RT 3V IMPRESSION: Mild degenerative changes of the hips without acute bony process. No acute bony process or significant degenerative change involving the right knee. Impression dictated by: Juan France Jr., D.O. 05/29/2025 10:05 AM Dictation Location: [place] [address] Electronically authenticated by: [id number] Y Date: 05/29/2025 10:05
== END 2025-05-29 08:59 | disposition home or self-care (01) ==
LOC: RAD 09:01
PROVIDERS: PCP Family Medicine; Visit Provider Family Medicine
DX: R10.2 Pelvic and perineal pain (principal); M79.604 Pain in right leg; M54.16 Radiculopathy, lumbar region; M51.369 Other intervertebral disc degeneration, lumbar region without mention of lumbar back pain or lower extremity pain
CPT/HCPCS: 72110; 73502; 73562